=== PATIENT | male | born 1945 | race Caucasian/White ===

== ENCOUNTER 2019-08-09 06:00 | Outpatient (RCR) | payer OTHER, SELFPAY | END 2019-09-08 00:01 | LOC: SPT 06:00 | PROVIDERS: Family Provider Nurse Practitioner Family; Visit Provider Student in an Organized Health Care Education/Training Program | DX: Z47.1 Aftercare following joint replacement surgery (principal); Z96.651 Presence of right artificial knee joint; M25.561 Pain in right knee; R26.89 Other abnormalities of gait and mobility | CPT/HCPCS: 97110 ×4 ==

== ENCOUNTER 2019-09-09 06:00 | Outpatient (RCR) | payer OTHER, SELFPAY | END 2019-10-09 23:59 | disposition home or self-care (01) | LOC: SPT 06:00 | PROVIDERS: Family Provider Nurse Practitioner Family; PCP Nurse Practitioner Family; Visit Provider Student in an Organized Health Care Education/Training Program | DX: Z47.1 Aftercare following joint replacement surgery (principal); Z96.651 Presence of right artificial knee joint ==

== ENCOUNTER → 2020-10-11 14:53 | Outpatient (BNVA) | payer MEDICARE, OTHER, SELFPAY | PROVIDERS: Family Provider Nurse Practitioner Family; PCP Nurse Practitioner Family; Visit Provider Internal Medicine Pulmonary Disease | DX: R06.02 Shortness of breath (principal); J44.9 Chronic obstructive pulmonary disease, unspecified | CPT/HCPCS: 82785; 85025; 86003; 87635 ==

== ENCOUNTER → 2020-10-28 15:15 | Outpatient (BNVA) | payer MEDICARE, OTHER, SELFPAY | PROVIDERS: PCP Nurse Practitioner Family; Visit Provider Internal Medicine Pulmonary Disease | DX: Z20.822 Contact with and (suspected) exposure to COVID-19 (principal); R06.02 Shortness of breath | CPT/HCPCS: 87635 ==

== ENCOUNTER 2020-11-02 08:11 | Outpatient (CLI) | payer MEDICARE, OTHER, SELFPAY ==
--- NOTE | 2020-11-02 13:56 | PFTS_ITS ---
Date of Study:11/02/20 Date of Dictation: MECHANICS: Forced vital capacity (FVC) is mildly reduced. Forced expiratory volume in one second (FEV1) is mildly reduced. FEV1/FVC is normal. FLOW VOLUME LOOP: Mild scooping likely secondary to aging. LUNG VOLUMES: Total lung capacity (TLC) is normal. Residual volume (RV) is normal. DIFFUSING CAPACITY FOR CARBON MONOXIDE: Normal. INTERPRETATION: The prebronchodilator spirometry is consistent with minimal restriction. Lung volumes are normal. Gas exchange (DLCO) is normal. MTDD
== END 2020-11-02 08:12 | disposition home or self-care (01) ==
LOC: RT 08:12
PROVIDERS: PCP Family Medicine; Visit Provider Internal Medicine Pulmonary Disease
DX: J44.9 Chronic obstructive pulmonary disease, unspecified (principal); R06.02 Shortness of breath
CPT/HCPCS: 94010; 94618; 94726; 94729

== ENCOUNTER 2021-01-12 08:51 | Outpatient (CLI) | payer MEDICARE, OTHER, SELFPAY ==
--- NOTE | 2021-01-12 09:00 | CT_ITS ---
WS: [id number] CT CHEST CT-HIGH RESOLUTION, NONCONTRAST. HISTORY: Interstitial lung disease. Technique: High-resolution chest CT is performed in inspiration, expiration, supine and prone positio isreal. All CT scans at [facility] use at least one of these dose optimization techniques: automa shira exposure control; mA and/or kV adjustment per patient size (includes targeted exams where dose is matched to clinical indication); or iterative reconstruction. DLP: 900.64 mGycm COMPARISON: 01/05/2018 CT angiogram chest. Findings: Dual-lead LEFT subclavian pacer. Linear scarring or chronic atelectasis in the LEFT lower l kaylen field remains the same on supine and prone imaging. There is adjacent pleural thickening and teth ering. There is mild bronchiectasis in the LEFT lower lobe at the site of the scarring and chronic at electasis. There is very minimal distal airways interstitial thickening. Very minimal distal airways reticulations. There is no honeycombing identified. There are a few scattered benign granulomata. Wit h expiration there is decreased volume with increasing mosaic groundglass attenuation due to the expi ration. Mild enlargement of the heart. Prominent pericardial fat. No adenopathy. CT/CT chest wo con [id number] Impression: 1. Chronic atelectasis and/or scarring with bronchiectasis involving the super ior segment LEFT lower lobe. 2. Otherwise no bronchiectasis or pneumonia. 3. No honeycombing or evidence for IUP.
== END 2021-01-12 08:52 | disposition home or self-care (01) ==
PROVIDERS: PCP Family Medicine; Visit Provider Internal Medicine Pulmonary Disease
DX: J44.9 Chronic obstructive pulmonary disease, unspecified (principal); J98.11 Atelectasis
CPT/HCPCS: 71250

== ENCOUNTER 2021-03-10 14:57 | Emergency (ER) | payer OTHER, MEDICARE, SELFPAY ==
[2021-03-10 15:26] VITALS: BP 138/83; PULSE 72; RESP 15; TEMP 36.7; O2SAT 99; BMI 30.2
--- NOTE | 2021-03-10 16:33 | CTR_ITS ---
PROCEDURE INFORMATION: Exam: CT Lumbar Spine Without Contrast Exam date and time: 03/10/2021 4:33 PM Age: 75 years old Clinical indication: Injury or trauma; Blunt trauma (contusions or hematomas); Patient HX: Backwards fall from seated position denies loc C/O neck and bad pain; Additional info: Fall with back pain TECHNIQUE: Imaging protocol: Computed tomography images of the lumbar spine without contrast. Radiation optimization: All CT scans at this facility use at least one of these dose optimization techniques: automated exposure control; mA and/or kV adjustment per patient size (includes targeted exams where dose is matched to clinical indication); or iterative reconstruction. COMPARISON: [place] [id number] 09/25/2016 12:48 PM RADIATION DOSE METRICS: Total DLP (mGy-cm): 1538.55 FINDINGS: Vertebrae: Mild rightward lumbar curvature. The vertebral body stature is intact. The facets and posterior elements are intact. No fracture or subluxation. Degenerative endplate changes at all lumbar levels with bridging osteophytes. L1-L2: No significant disc protrusion. No severe spinal canal stenosis. No significant neural foraminal narrowing. L2-L3: Disc space narrowing with mild disc bulge. No foraminal stenosis. Mild central canal stenosis. L3-L4: Disc space narrowing with mild disc bulge. No foraminal stenosis. Mild central canal stenosis. L4-L5: Disc space narrowing with mild disc bulge. Moderate left foraminal stenosis. No central canal stenosis. L5-S1: Posterior endplate spurring with disc bulge. Severe bilateral foraminal stenosis. No foraminal stenosis. Soft tissues: Unremarkable. CT/CT lumbar spine wo con* [id number] IMPRESSION: 1. No fracture or acute finding. 2. Multilevel degenerative changes. Radiation Dose CTDIVOL = (mGy): DLP = 1538.55 (mGy-cm)
--- NOTE | 2021-03-10 16:33 | CTR_ITS ---
PROCEDURE INFORMATION: Exam: CT Thoracic Spine Without Contrast Exam date and time: 03/10/2021 4:33 PM Age: 75 years old Clinical indication: Injury or trauma; Blunt trauma (contusions or hematomas); Patient HX: Backwards fall from seated position denies loc C/O neck and bad pain; Additional info: Fall with back pain TECHNIQUE: Imaging protocol: Computed tomography images of the thoracic spine without contrast. Radiation optimization: All CT scans at this facility use at least one of these dose optimization techniques: automated exposure control; mA and/or kV adjustment per patient size (includes targeted exams where dose is matched to clinical indication); or iterative reconstruction. COMPARISON: CT chest wo con [id number] 01/12/2021 9:03 AM RADIATION DOSE METRICS: Total DLP (mGy-cm): 2038.57 FINDINGS: Vertebrae: Mild rightward thoracic curvature. The vertebral body alignment and stature is intact. 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 The facets and posterior elements are intact. T1-T2: No significant disc protrusion. No severe spinal canal stenosis. No significant neural foraminal narrowing. T2-T3: No significant disc protrusion. No severe spinal canal stenosis. No significant neural foraminal narrowing. T3-T4: No significant disc protrusion. No severe spinal canal stenosis. No significant neural foraminal narrowing. T4-T5: No significant disc protrusion. No severe spinal canal stenosis. No significant neural foraminal narrowing. T5-T6: No significant disc protrusion. No severe spinal canal stenosis. No significant neural foraminal narrowing. T6-T7: No significant disc protrusion. No severe spinal canal stenosis. No significant neural foraminal narrowing. T7-T8: No significant disc protrusion. No severe spinal canal stenosis. No significant neural foraminal narrowing. T8-T9: No significant disc protrusion. No severe spinal canal stenosis. No significant neural foraminal narrowing. T9-T10: No significant disc protrusion. No severe spinal canal stenosis. No significant neural foraminal narrowing. T10-T11: No significant disc protrusion. No severe spinal canal stenosis. No significant neural foraminal narrowing. T11-T12: Slight widening of the anterior disc space at T11-12 with a fracture through the ossified anterior longitudinal ligament. Lucency through the right and left calcified disc capsule at T11-12. T12-L1: No significant disc protrusion. No severe spinal canal stenosis. No significant neural foraminal narrowing. CT/CT thoracic spin wo con* [id number] IMPRESSION: 1. Mild widening of the anterior T11-12 disc space with fracture through the ossified anterior longitudinal ligament. This is consistent with anterior ligament disruption, likely due to a hyperextension injury. 2. No compression fracture identified. Radiation Dose CTDIVOL = (mGy): DLP = 2039.57 (mGy-cm)
--- NOTE | 2021-03-10 16:33 | CTR_ITS ---
PROCEDURE INFORMATION: Exam: CT Cervical Spine Without Contrast Exam date and time: 03/10/2021 4:33 PM Age: 75 years old Clinical indication: Injury or trauma; Blunt trauma; Patient HX: Backwards fall from seated position denies loc C/O neck and bad pain; Additional info: Fall and hit head TECHNIQUE: Imaging protocol: Computed tomography images of the cervical spine without contrast. Radiation optimization: All CT scans at this facility use at least one of these dose optimization techniques: automated exposure control; mA and/or kV adjustment per patient size (includes targeted exams where dose is matched to clinical indication); or iterative reconstruction. COMPARISON: CT chest wo con [id number] 01/12/2021 9:03 AM RADIATION DOSE METRICS: Total DLP (mGy-cm): 712.43 FINDINGS: Vertebrae: [id number] degenerative changes are present in the cervical spine. Mild canal stenosis is present at C4-C5 and C5-C6 secondary to chronic changes. No cervical spine fracture is visualized. Spinal alignment is normal. Soft tissues: Unremarkable. Lungs: Lung apices are normal. CT/CT cervical spin wo con* [id number] IMPRESSION: No cervical spine fracture. Radiation Dose CTDIVOL = (mGy): DLP = 712.43 (mGy-cm)
--- NOTE | 2021-03-10 16:33 | CTR_ITS ---
PROCEDURE INFORMATION: Exam: CT Head Without Contrast Exam date and time: 03/10/2021 4:33 PM Age: 75 years old Clinical indication: Injury or trauma; Blunt trauma (contusions or hematomas); Without loss of consciousness; Patient HX: Backwards fall from seated position denies loc C/O neck and bad pain; Additional info: Fall and hit head, on blood thinner TECHNIQUE: Imaging protocol: Computed tomography of the head without contrast. Radiation optimization: All CT scans at this facility use at least one of these dose optimization techniques: automated exposure control; mA and/or kV adjustment per patient size (includes targeted exams where dose is matched to clinical indication); or iterative reconstruction. COMPARISON: No relevant prior studies available. RADIATION DOSE METRICS: Total DLP (mGy-cm): 935.99 FINDINGS: Brain: Mild atrophy and mild white matter chronic microvascular changes are noted. No hemorrhage or evidence of acute infarction is seen. Cerebral ventricles: No ventriculomegaly. Paranasal sinuses: Visualized sinuses are unremarkable. No fluid levels. Mastoid air cells: Visualized mastoid air cells are well aerated. Bones/joints: Unremarkable. No acute fracture. Soft tissues: Unremarkable. CT/CT head wo con* [id number] IMPRESSION: No acute intracranial abnormality. Radiation Dose CTDIVOL = (mGy): DLP = 935.99 (mGy-cm)
--- NOTE | 2021-03-10 16:34 | ED_ITS ---
Documented by User: MARIA T Ochoa 03/11/21 07:12 HPI - Fall General: Chief Complaint: Fall Stated Complaint: FELL, HIT HEAD, ON BLOOD THINNERS, BACK INJURY Time Seen by Provider: 03/10/21 16:25 History of Present Illness: HPI Narrative: Patient is a 75-year-old male comes to the ED with a fall. Fall occurred just prior to arrival patient says he fell backwards into a foldable metal chair and hit his head and back. His main co mplaint is back pain. Denies any headache, loss of consciousness or any bleeding. Denies neck pain. Back pain is located in between his thoracic and lumbar spine and he rates it a 10 out of 10. Denies any cauda equina symptoms. Associated symptoms-after fall: Denies abdominal pain, chest pain, headache(s), hematuria or neck pain Review of Systems Const: Denies: fever(s), chills or fatigue Eyes: Denies: change in vision or eye discomfort ENMT: Denies: throat pain, odynophagia, nasal discharge or nasal congestion Card: Denies: chest pain, palpitations, edema, swelling of feet/ankles, dyspnea on exertion or orthopnea Resp: Denies: dyspnea, productive cough or non-productive cough GI: Denies: abdominal pain, nausea, vomiting, diarrhea, constipation or akash tochezia : Denies: flank pain, difficulty urinating, dysuria or hematuria Musc: Reports: back pain; Denies: neck pain or extremity swelling Skin/Breast: Denies: rash or new lesions Neuro: Denies: headache(s), numbness in extremities or weakness in extremities PFSH ED PFSH: Family History Father Hypertension CHF (congestive heart failure) Mother Hypertension Social History Smoking and tobacco status: former smoker Quit status (tobacco): has quit using tobacco Year quit tobacco: 1990 1- [id number] Second hand smoke exposure: Yes Smoking risk assessment/counseling performed?: Yes Alcohol intake: current Alcohol intake frequency: 0-2 Drinks per Day Lives independently: Yes Household members: spouse Housing: House Marital status: service: Yes Current occupational status: retired Pets and animals: Yes History of recent travel: No Current gender identity: Male Physical Exam Const: COMMON NORMALS: no acute distress, patient oriented x3, healthy appearing and alert GENERAL APPEARANCE: cooperative and comfortable HENMT: COMMON NORMALS: normocephalic HEAD & SCALP: normocephalic MOUTH: Normal oral and palatal mucosa present THROAT: posterior oropharynx normal and uvula midline Neck/C-Spine: COMMON NORMALS: supple GENERAL: Yes normal visual inspection Resp: COMMON NORMALS: normal respiratory effort, No retractions, No use of accessory muscles and clear to auscultation bilaterally AUSCULTATION: clear to auscultation bilaterally Cardio: COMMON NORMALS: regular rate, regular rhythm, S1 normal heart sound present, S2 normal heart sound present, No gallops present (Cardio), No clicks present (Cardio), No murmurs present (Cardio) and Peripheral pulses 2+ throughout RATE: regular rate RHYTHM: regular rhythm HEART SOUNDS: S1 normal heart sound present and S2 normal heart sound present PERIPHERAL PULSES: Peripheral pulses 2+ throughout GI: COMMON NORMALS: Normal to inspection, nondistended, normoactive bowel sounds present, Soft to palpation, non-tender and no masses PALPATION: Yes Soft to palpation : COMMON NORMALS: Yes no CVA tenderness BLADDER/KIDNEY EXAM: Yes no CVA tenderness Back/Pelvis: COMMON NORMALS: no CVA tenderness THORACIC SPINE/UPPER BACK: Yes pain with ROM, Yes thoracic spinal tenderness and Yes paraspinal muscle tenderness LUMBAR SPINE/LOWER BACK: Yes pain with ROM, Yes lumbar spinal tenderness and Yes paraspinal muscle tenderness Extremity: COMMON NORMALS: normal to inspection and no pedal edema Neuro: COMMON NORMALS: patient oriented x3, CN's II-XII intact bilaterally, moves all extremities, no focal motor deficits and no sensory deficits noted SENSORIUM/ORIENTATION: Yes alert SENSORY EXAM: Yes extremities (intact) MOTOR EXAM: 5/5 motor strength present throughout Skin: GENERAL SKIN EXAM: dry skin Course Vital Signs: Vital signs: Vital Signs Temperature 98.1 F 03/10/21 19:21 Pulse Rate 73 03/10/21 19:21 Respiratory Rate 17 03/10/21 19:21 Blood Pressure 134/83 03/10/21 19:21 Pulse Oximetry 96 03/10/21 19:21 Discharge Plan Discharge Patient Disposition: Home Clinical Impression: Other fracture of t11-T12 vertebra, initial encounter for closed fracture Condition: Stable Prescriptions: No Action amiodarone 200 mg tablet 200 mg PO DAILY RF: 0 Eliquis 5 mg tablet 5 mg PO BID RF: 0 allopurinol 100 mg tablet 100 mg PO TID RF: 0 carvedilol 25 mg tablet 25 mg PO BID RF: 0 furosemide 40 mg tablet 40 mg PO QAM RF: 0 simvastatin 40 mg tablet 40 mg PO .HS RF: 0 albuterol sulfate 90 mcg/actuation aero powdr breath act w/sensor 90 mcg INHALATION Q6H PRNRF: 0 methocarbamol 750 mg tablet 750 mg PO TID PRNRF: 0 nortriptyline 25 mg capsule 25 mg PO .HS RF: 0 omeprazole 20 mg capsule,delayed release(DR/EC) 20 mg PO BID Qty: 60 RF: 3 azelastine-fluticasone [Dymista] 137-50 mcg/spray spray,non-aerosol 1 spray intranasal BID Qty: 23 RF: 3 potassium chloride 20 mEq tablet extended release 20 meq PO DAILY RF: 0 Entresto 24-26 mg tablet 1 tab PO BID RF: 0 fluticasone propionate [Allergy Relief (fluticasone)] 50 mcg/actuation spray,suspension 2 spray intranasal DAILY RF: 0 cetirizine [Zyrtec] 10 mg tablet 10 mg PO DAILY Qty: 30 RF: 3 Spiriva Respimat 2.5 mcg/actuation mist 2 puff inhalation DAILY Qty: 4 RF: 3 budesonide-formoterol [Symbicort] 160-4.5 mcg/actuation HFA aerosol inhaler 2 puff inhalation BID Qty: 10.2 RF: 3 pregabalin [Lyrica] 75 mg capsule 75 mg PO DAILY RF: 0 Discharge Orders: Discharge ED (Routine); Ordered 03/10/21 Ordered By: Natalie Hatch Referrals: Dayton Newman DO [Physician] - 4-7 days Katina Damon MD [Primary Care Provider] - Discharge Diet: Usual diet Discharge Activity: Limit activity as instructed Patient Instructions: Opioid Safety Activity Restrictions/Additional Instructions: Percocet for pain control, limit activity until cleared by . Sign Out Sign Out Data: Patient Sign Out occurred on 03/10/21 at 17:40. Patient's care was discussed, and care was transferred from to Natalie Hatch APRN. Coding Level of Care Code ED Forestry Worker for Chg Fwd Exam Comprehensive Documented by User: Natalie Hatch APRN 03/10/21 18:38 HPI - Fall General: Chief Complaint: Fall Stated Complaint: FELL, HIT HEAD, ON BLOOD THINNERS, BACK INJURY Time Seen by Provider: 03/10/21 16:25 PFSH ED PFSH: Family History Father Hypertension CHF (congestive heart failure) Mother Hypertension Social History Smoking and tobacco status: former smoker Quit status (tobacco): has quit using tobacco Year quit tobacco: 1990 1- [id number] Second hand smoke exposure: Yes Smoking risk assessment/counseling performed?: Yes Alcohol intake: current Alcohol intake frequency: 0-2 Drinks per Day Lives independently: Yes Household members: spouse Housing: House Marital status: service: Yes Current occupational status: retired Pets and animals: Yes History of recent travel: No Current gender identity: Male Course Reevaluation(s): Reevaluation #1: CT of C spine, and Head unremarkable.Discussed CT of T spine with . Will discharge on Percocet, and follow closely with . Limit strenuious activities. Discussed with patient. Vital Signs: Vital signs: Vital Signs Temperature 98.1 F 03/10/21 19:21 Pulse Rate 73 03/10/21 19:21 Respiratory Rate 17 03/10/21 19:21 Blood Pressure 134/83 03/10/21 19:21 Pulse Oximetry 96 03/10/21 19:21 MDM - Fall Imaging Data^: Other CT: Attestation: I personally reviewed and interpreted this imaging study as follows: Radiologist's impression: 1. Mild widening of the anterior T11-12 disc space with fracture through the ossified anterior longitudinal ligament. This is consistent with anterior ligament disruption, likely due to a hyperextension injury. 2. No compression fracture identified. Discharge Plan Discharge Patient Disposition: Home Clinical Impression: Other fracture of t11-T12 vertebra, initial encounter for closed fracture Condition: Stable Prescriptions: No Action amiodarone 200 mg tablet 200 mg PO DAILY RF: 0 Eliquis 5 mg tablet 5 mg PO BID RF: 0 allopurinol 100 mg tablet 100 mg PO TID RF: 0 carvedilol 25 mg tablet 25 mg PO BID RF: 0 furosemide 40 mg tablet 40 mg PO QAM RF: 0 simvastatin 40 mg tablet 40 mg PO .HS RF: 0 albuterol sulfate 90 mcg/actuation aero powdr breath act w/sensor 90 mcg INHALATION Q6H PRNRF: 0 methocarbamol 750 mg tablet 750 mg PO TID PRNRF: 0 nortriptyline 25 mg capsule 25 mg PO .HS RF: 0 omeprazole 20 mg capsule,delayed release(DR/EC) 20 mg PO BID Qty: 60 RF: 3 azelastine-fluticasone [Dymista] 137-50 mcg/spray spray,non-aerosol 1 spray intranasal BID Qty: 23 RF: 3 potassium chloride 20 mEq tablet extended release 20 meq PO DAILY RF: 0 Entresto 24-26 mg tablet 1 tab PO BID RF: 0 fluticasone propionate [Allergy Relief (fluticasone)] 50 mcg/actuation spray,suspension 2 spray intranasal DAILY RF: 0 cetirizine [Zyrtec] 10 mg tablet 10 mg PO DAILY Qty: 30 RF: 3 Spiriva Respimat 2.5 mcg/actuation mist 2 puff inhalation DAILY Qty: 4 RF: 3 budesonide-formoterol [Symbicort] 160-4.5 mcg/actuation HFA aerosol inhaler 2 puff inhalation BID Qty: 10.2 RF: 3 pregabalin [Lyrica] 75 mg capsule 75 mg PO DAILY RF: 0 Discharge Orders: Discharge ED (Routine); Ordered 03/10/21 Ordered By: Natalie Hatch Referrals: Dayton Newman DO [Physician] - 4-7 days Katina Damon MD [Primary Care Provider] - Discharge Diet: Usual diet Discharge Activity: Limit activity as instructed Patient Instructions: Opioid Safety Activity Restrictions/Additional Instructions: Percocet for pain control, limit activity until cleared by . Sign Out Sign Out Data: Patient Sign Out occurred on 03/10/21 at 17:40. Patient's care was discussed, and care was transferred from to Natalie Hatch APRN. Coding Level of Care Code ED Forestry Worker for Chg Fwd Exam Comprehensive
[2021-03-10 16:42] VITALS: RESP 16; O2SAT 98
[2021-03-10] MEDS: morphine 4 mg/mL SDV 1 mL IM ×2 (16:42→17:56)
[2021-03-10 17:56] VITALS: RESP 16; O2SAT 96
--- NOTE | 2021-03-10 19:20 | PC.NURSE ---
Patient dispensed 4 tablets oxycodone 5 mg/acetaminophen 325 mg for patient to take at home per provider order.
[2021-03-10 19:21] VITALS: BP 134/83; PULSE 73; RESP 17; TEMP 36.7; O2SAT 96
--- NOTE | 2021-03-14 09:51 | DCPLANNER ---
manager of it had message to schedule a follow up appointment for patient at ortho, with Dr. Newman. manager of it called the ortho clinic, spoke with Katina, gave clinic patients information. manager of it was told that patients information would be printed and reviewed. Clinic will call patient with appointment information.
--- NOTE | 2021-03-15 15:49 | DCPLANNER ---
Patient has a follow up appointment scheduled for Sunday, March 21, 2021 at 10:[address] Newman at [facility]. Clinic will call patient with appointment information.
--- NOTE | 2021-04-06 08:51 | DCPLANNER ---
Patient did attend follow up appointment with ortho.
== END 2021-03-10 19:23 | disposition home or self-care (01) ==
PROVIDERS: Emergency Provider Nurse Practitioner Family; PCP Family Medicine
DX: S22.088A Other fracture of T11-T12 vertebra, initial encounter for closed fracture (principal); Z79.01 Long term (current) use of anticoagulants; Z87.891 Personal history of nicotine dependence; W19.XXXA Unspecified fall, initial encounter
CPT/HCPCS: 70450; 72125; 72128; 72131; 96372; 99283; J2270

== ENCOUNTER → 2021-03-21 10:18 | Outpatient (BNVA) | payer OTHER, SELFPAY | PROVIDERS: PCP Family Medicine; Visit Provider Orthopaedic Surgery | DX: S22.000A Wedge compression fracture of unspecified thoracic vertebra, initial encounter for closed fracture (principal); X58.XXXA Exposure to other specified factors, initial encounter | CPT/HCPCS: 72070; 72100 ==

== ENCOUNTER → 2021-04-04 14:36 | Outpatient (BNVA) | payer OTHER, SELFPAY | PROVIDERS: PCP Family Medicine; Visit Provider Orthopaedic Surgery | DX: M46.94 Unspecified inflammatory spondylopathy, thoracic region (principal) | CPT/HCPCS: 72070 ==

== ENCOUNTER → 2021-05-04 13:52 | Outpatient (BNVA) | payer OTHER, MEDICARE, SELFPAY | PROVIDERS: PCP Family Medicine; Visit Provider Orthopaedic Surgery | DX: S22.000A Wedge compression fracture of unspecified thoracic vertebra, initial encounter for closed fracture (principal); M54.6 Pain in thoracic spine; X58.XXXA Exposure to other specified factors, initial encounter | CPT/HCPCS: 72080 ==

== ENCOUNTER → 2021-06-13 13:44 | Outpatient (BNVA) | payer OTHER, MEDICARE, SELFPAY | PROVIDERS: PCP Family Medicine; Visit Provider Orthopaedic Surgery | DX: M54.6 Pain in thoracic spine (principal); M46.84 Other specified inflammatory spondylopathies, thoracic region | CPT/HCPCS: 72070 ==

== ENCOUNTER → 2021-10-03 15:39 | Outpatient (BNVA) | payer OTHER, MEDICARE, SELFPAY | PROVIDERS: PCP Family Medicine; Visit Provider Nurse Practitioner Family | DX: Z20.822 Contact with and (suspected) exposure to COVID-19 (principal); Z11.52 Encounter for screening for COVID-19 | CPT/HCPCS: 87635 ==

== ENCOUNTER → 2022-02-01 17:03 | Outpatient (BNVA) | payer MEDICARE, OTHER, SELFPAY | PROVIDERS: PCP Family Medicine; Visit Provider Nurse Practitioner Family | DX: J44.9 Chronic obstructive pulmonary disease, unspecified (principal); I50.9 Heart failure, unspecified; K21.9 Gastro-esophageal reflux disease without esophagitis; J40 Bronchitis, not specified as acute or chronic; R05.3 Chronic cough; I48.91 Unspecified atrial fibrillation; I10 Essential (primary) hypertension; J30.2 Other seasonal allergic rhinitis | CPT/HCPCS: 80053 ==

== ENCOUNTER → 2022-10-26 09:27 | Outpatient (BNVA) | payer MEDICARE, OTHER, SELFPAY | PROVIDERS: PCP Family Medicine; Visit Provider Internal Medicine Cardiovascular Disease | DX: I48.11 Longstanding persistent atrial fibrillation (principal); Z79.01 Long term (current) use of anticoagulants; I11.0 Hypertensive heart disease with heart failure; I50.42 Chronic combined systolic (congestive) and diastolic (congestive) heart failure; K21.9 Gastro-esophageal reflux disease without esophagitis; G47.33 Obstructive sleep apnea (adult) (pediatric); Z95.0 Presence of cardiac pacemaker; Z87.891 Personal history of nicotine dependence | CPT/HCPCS: 93005; 99204; Q3014 ==

== ENCOUNTER → 2023-02-08 08:13 | Outpatient (BNVA) | payer MEDICARE, OTHER, SELFPAY | PROVIDERS: PCP Family Medicine; Visit Provider Nurse Practitioner Family | DX: I48.11 Longstanding persistent atrial fibrillation (principal); Z95.0 Presence of cardiac pacemaker; I11.0 Hypertensive heart disease with heart failure; I50.42 Chronic combined systolic (congestive) and diastolic (congestive) heart failure; Z87.891 Personal history of nicotine dependence; Z79.01 Long term (current) use of anticoagulants | CPT/HCPCS: 99214 ==

== ENCOUNTER → 2023-02-22 09:44 | Outpatient (BNVA) | payer MEDICARE, OTHER, SELFPAY | PROVIDERS: PCP Family Medicine; Visit Provider Nurse Practitioner Family | DX: I11.0 Hypertensive heart disease with heart failure (principal); I50.42 Chronic combined systolic (congestive) and diastolic (congestive) heart failure; I48.11 Longstanding persistent atrial fibrillation; Z87.891 Personal history of nicotine dependence; Z95.0 Presence of cardiac pacemaker; Z79.01 Long term (current) use of anticoagulants | CPT/HCPCS: 99214 ==

== ENCOUNTER 2023-02-26 12:35 | Outpatient (CLI) | payer MEDICARE, OTHER, SELFPAY ==
--- NOTE | 2023-02-26 12:45 | USCV_ITS ---
Kale Harden Age: 77 Gender: M : 1945 Exam Date: 02/26/2023 13:32 Ordering Phys: Fe Hankins Technologist: Exam Location: [facility] [place] Indication: a fib BP: 125 / 70 HR: 61 Rhythm: Sinus Technical Quality: Adequate MEASUREMENTS (Male / Female) Normal Values 2D ECHO LV Diastolic Diameter PLAX 3.6 cm 4.2 - 5.9 / 3.9 - 5.3 cm LV Systolic Diameter PLAX 3.1 cm IVS Diastolic Thickness 1.2 cm 0.6 - 1.0 / 0.6 - 0.9 cm IVS Systolic Thickness 1.6 cm LVPW Diastolic Thickness 1.2 cm 0.6 - 1.0 / 0.6 - 0.9 cm LVPW Systolic Thickness 1.7 cm LVOT Diameter 2.0 cm LV Ejection Fraction 2D Teich 20.6 % LV Ejection Fraction MOD 2C 66.6 % LV Ejection Fraction 2C AL 66.1 % LA Diameter 4.8 cm M-MODE Aortic Annulus Diameter 4.0 cm LA Ao Ratio MM 1.2 MV E Point Septal Separation 1.1 cm DOPPLER AV Peak Velocity 103.0 cm/s LVOT Peak Velocity 72.0 cm/s AV Area Cont Eq vti 2.5 cm squared AV Area Cont Eq pk 2.2 cm squared MV Area PHT 5.0 cm squared Mitral E to A Ratio 1.8 MV E' Velocity 37.0 cm/s Mitral E to MV E' Ratio 10.1 Mitral E to LV E' Lateral Ratio 8.1 Mitral E to LV E' Septal Ratio 13.6 TR Peak Velocity 272.7 cm/s TR Peak Gradient 29.7 mmHg TV Peak E Velocity 72.0 cm/s Right Atrial Pressure 3.0 mmHg Pulmonary Artery Systolic Pressu 32.7 mmHg RV Acceleration Time 0.1 s FINDINGS Left Ventricle Left ventricle is normal in size. LV systolic function is grossly normal. Regional wall motion abnormalities cannot accurately be assessed because of poor ultrasonic windows. Right Ventricle Normal in size and function Right Atrium Normal in size Left Atrium Normal in size Mitral Valve Grossly normal. Trace mitral regurgitation. Aortic Valve Grossly normal. No significant stenosis or regurgitation. Tricuspid Valve Mild tricuspid regurgitation. RVSP is 35 to 40 mmHg. This is consistent with mild pulmonary hypertension. Pulmonic Valve Not well-visualized Pericardium Normal Aorta Normal in size IVC Appears to be normal CONCLUSIONS Technically limited quality echocardiogram because of poor ultrasonic windows. Grossly LV systolic function is normal. Accurate assessment of regional wall motion abnormalities is not possible because of limited visualization. Trace mitral regurgitation Mild tricuspid regurgitation Mild pulmonary hypertension Compared to prior echocardiogram from 2018, no significant changes are seen. Jack Levy MD (Electronically Signed) Final Date: 02 March 2023 17:18 S
== END 2023-02-26 12:36 | disposition home or self-care (01) ==
LOC: RAD 12:37
PROVIDERS: PCP Family Medicine; Visit Provider Nurse Practitioner Family
DX: I50.9 Heart failure, unspecified (principal); I48.91 Unspecified atrial fibrillation; I07.1 Rheumatic tricuspid insufficiency; I27.20 Pulmonary hypertension, unspecified
CPT/HCPCS: 93306; 99214

== ENCOUNTER → 2023-03-15 09:30 | Outpatient (BNVA) | payer MEDICARE, OTHER, SELFPAY | PROVIDERS: PCP Family Medicine; Visit Provider Nurse Practitioner Family | DX: I11.0 Hypertensive heart disease with heart failure (principal); I50.42 Chronic combined systolic (congestive) and diastolic (congestive) heart failure; Z87.891 Personal history of nicotine dependence; Z95.0 Presence of cardiac pacemaker | CPT/HCPCS: 99213 ==

== ENCOUNTER 2023-05-27 11:35 | Emergency (ER) | payer OTHER, SELFPAY ==
--- NOTE | 2023-05-27 11:38 | US_ITS ---
WS: [id number] TESTICULAR ULTRASOUND HISTORY: pain COMPARISON: None available. TECHNIQUE: Real-time and color Doppler imaging or utilized to perform a testicular ultrasound. Right testicle: 3.8 cm x 2.1 cm x 1.5 cm. Normal sized testicle. There is increased echogenicity throughout the testicle. Normal color Doppler is present throughout. Systolic and diastolic velocities are both present. No significant hydrocele. Right epididymis: Mildly heterogeneous epididymis. No increased vascularity. Left testicle: 2.9 cm x 1.6 cm x 2.0 cm. Mildly heterogeneous testicle. Irregular shaped low echogenicity nodules in the LEFT testicle. Within the inferior LEFT testes. Increased Doppler throughout the testicle. Small significant hydrocele. Left epididymis: Marked increased vascularity throughout an abnormal epididymis. The epididymis is en larged and edematous. Mild LEFT scrotal wall thickening. IMPRESSION: 1. Advanced LEFT epididymo-orchitis. 2. Areas of decreased echogenicity within the LEFT testicle. These are nonvascular. Recommend follow- up ultrasound of the testes after treatment to ensure the these resolve and/or do not increase in siz e. These may be areas of ischemia. Mass is not completely excluded but thought less likely. 3. Mild LEFT scrotal wall thickening.
[2023-05-27 11:41] VITALS: BP 144/80; PULSE 74; RESP 17; TEMP 36.6; O2SAT 97; BMI 31.6
--- NOTE | 2023-05-27 12:29 | W.ED.MALEGU ---
HPI - Male Genitourinary General: Chief complaint: Urogenital-Male Stated complaint: testicular pain Time Seen by Provider: 05/27/23 11:45 Source: patient Mode of arrival: ambulatory Limitations: no limitations History of Present Illness: 77-year-old male states has been having left testicle pain over the last 2 days. States that testicle been swollen as well as pain sharp in nature rates an 8 out of 10 worse with palpation. He states he just recently got over a urinary tract infection. He denies any more dysuria denies any penile discharge. Associated symptoms: Deny dysuria, nausea or vomiting Review of Systems Const: Denies: fever(s), chills, body aches or change in appetite ENMT: Denies: throat pain or dental pain Card: Denies: chest pain Resp: Denies: dyspnea GI: Denies: abdominal pain, nausea, vomiting or diarrhea : Reports: testicular pain; Denies: dysuria Musc: Denies: neck pain or back pain Skin/Breast: Denies: rash Neuro: Denies: headache(s) PFSH ED PFSH: Medical History Asthma Atrial fibrillation CHF (congestive heart failure) Essential hypertension Gout Hx pulmonary embolism Hyperlipidemia Nonischemic cardiomyopathy ANJELICA (obstructive sleep apnea) Pacemaker PTSD (post-traumatic stress disorder) Surgical History History of cardiac radiofrequency ablation S/P cholecystectomy S/P knee replacement Status cardiac pacemaker Family History Father Hypertension CHF (congestive heart failure) Stroke Mother Hypertension Stroke Social History Smoking and tobacco status: former smoker Quit status (tobacco): has quit using tobacco Year quit tobacco: 1990 [id number] Second hand smoke exposure: Yes Smoking risk assessment/counseling performed?: Yes Alcohol intake: current Alcohol intake frequency: 0-2 Drinks per Day Substance/Drug Use: never Lives independently: Yes Household members: spouse Housing: House Marital status: service: Yes Current occupational status: retired Pets and animals: Yes Do you think of yourself as: Straight/Heterosexual Current gender identity: Male Physical Exam Const: COMMON NORMALS: no acute distress and patient oriented x3 HENMT: COMMON NORMALS: normocephalic and atraumatic HEAD & SCALP: normocephalic and atraumatic Eye: COMMON NORMALS: conjunctivae normal CONJUNCTIVA: Yes conjunctivae normal Chest: COMMONS NORMALS: normal inspection of the chest Resp: COMMON NORMALS: normal respiratory effort : OTHER: Tenderness swelling to left testicle Neuro: COMMON NORMALS: patient oriented x3 Psych: COMMON NORMALS: mental status grossly normal Skin: COMMON NORMALS: no rashes or lesions noted GENERAL SKIN EXAM: no rashes or lesions noted Course Vital Signs: Vital signs: Vital Signs Temperature 98 F 05/27/23 11:41 Pulse Rate 74 05/27/23 11:41 Respiratory Rate 17 05/27/23 11:41 Blood Pressure 144/80 05/27/23 11:41 Pulse Oximetry 97 05/27/23 11:41 Oxygen Delivery Me thod Room Air 05/27/23 11:41 MDM - Male Medical Decision Making Patient presents here with left testicle pain ultrasound shows an epididymitis and orchitis with hydrocele he is to follow-up with his PCP along with a urologist we will place him on Levaquin for 10 days along with pain medication he is return if worsening Medical Records I reviewed the patient's medical records. XR interpretation done by ED provider, pending radiology final review Discharge Plan Discharge Patient Disposition: Home Clinical Impression: Epididymitis, Hydrocele, left Condition: Stable Prescriptions: New levofloxacin 500 mg tablet 500 mg PO DAILY 10 Days Qty: 10 0RF tramadol 50 mg tablet 50 mg PO Q8H PRN (Reason: pain) Qty: 20 0RF No Action Eliquis 5 mg tablet 5 mg PO BID furosemide 40 mg tablet 40 mg PO QAM simvastatin 40 mg tablet 40 mg PO .HS methocarbamol 750 mg tablet 750 mg PO TID PRN nortriptyline 25 mg capsule 25 mg PO .HS allopurinol 100 mg tablet 100 mg PO DAILY fluticasone propionate [Allergy Relief (fluticasone)] 50 mcg/actuation spray,suspension 2 spray intranasal DAILY Rx Instructions: administer into each nostril pregabalin [Lyrica] 75 mg capsule 75 mg PO DAILY albuterol sulfate [ProAir HFA] 90 mcg/actuation HFA aerosol inhaler 2 puff inhalation QID PRN (Reason: shortness of breath or wheezing) Qty: 8.5 11RF azelastine-fluticasone [Dymista] 137-50 mcg/spray spray,non-aerosol 1 spray intranasal BID Qty: 23 3RF Rx Instructions: administer into each nostril omega-3 fatty acids 1,000 mg capsule 1,000 mg PO DAILY zinc gluconate 50 mg tablet 50 mg PO DAILY magnesium oxide 250 mg magnesium tablet 250 mg PO DAILY calcium citrate 200 mg (950 mg) tablet 200 mg PO DAILY potassium gluconate 600 mg (99 mg) tablet 600 mg PO DAILY metoprolol succinate 100 mg tablet extended release 24 hr 100 mg PO DAILY Qty: 90 3RF niacin 500 mg tablet 500 mg PO DAILY Entresto 49-51 mg tablet 1 tab PO BID levocetirizine [Xyzal] 5 mg tablet 5 mg PO DAILY 90 Days Qty: 90 0RF cefdinir 300 mg capsule 300 mg PO BID Qty: 20 0RF Discharge Orders: Discharge ED (Routine); Ordered 05/27/23 Ordered By: Eleanor Alicea Referrals: Shashank Almazan DO [Primary Care Provider] - 1-3 days Discharge Diet: Advance as tolerated Discharge Activity: Resume usual activity Patient Instructions: Epididymitis (ED), Hydrocele (ED) Coding Level of Care Code ED Composition Stone Applicator for Carol Patel
[2023-05-27] MEDS: TRAMadol 50 mg Tablet PO (12:38)
[2023-05-27 12:46] VITALS: RESP 17
== END 2023-05-27 12:48 | disposition home or self-care (01) ==
PROVIDERS: Emergency Provider Emergency Medicine; PCP Family Medicine
DX: N45.1 Epididymitis (principal); N43.3 Hydrocele, unspecified; Z79.01 Long term (current) use of anticoagulants; Z87.891 Personal history of nicotine dependence; I11.0 Hypertensive heart disease with heart failure; I50.9 Heart failure, unspecified; E78.5 Hyperlipidemia, unspecified; Z95.0 Presence of cardiac pacemaker
CPT/HCPCS: 76870; 99284

== ENCOUNTER → 2023-06-05 13:51 | Outpatient (BNVA) | payer MEDICARE, OTHER, SELFPAY | PROVIDERS: PCP Family Medicine; Visit Provider Family Medicine | DX: N39.0 Urinary tract infection, site not specified (principal); N45.1 Epididymitis; N43.3 Hydrocele, unspecified | CPT/HCPCS: 81003; 87086 ==

== ENCOUNTER 2023-07-18 12:18 | Outpatient (CLI) | payer OTHER, SELFPAY ==
--- NOTE | 2023-07-18 12:41 | US_ITS ---
WS: [id number] TESTICULAR ULTRASOUND HISTORY: FOLLOW UP STUDY-ATTN:LEFT TESTICLE COMPARISON: 05/27/2023 TECHNIQUE: Real-time and color Doppler imaging or utilized to perform a testicular ultrasound. Right testicle: 2.9 cm x 2.2 cm x 1.6 cm. Small testicle with normal echogenicity. Normal color Doppler is present throughout. Systolic and diastolic velocities are both present. No significant hydrocele. Right epididymis: RIGHT epididymal cyst measuring 8 x 7 x 9 mm. Left testicle: 3.0 cm x 2.2 cm x 1.6 cm. Heterogeneous testicle but improved since the prior study. The testicle is small. The areas of variab le echogenicity within the testicle have improved. Normal color Doppler is present throughout. Systolic and diastolic velocities are both present. Small hydrocele. Left epididymis: Enlarged heterogeneous epididymis with less increased vascularity as on the prior st udy. Significant improvement in the LEFT epididymitis. There is a small varicocele. IMPRESSION: 1. Significant improvement in the appearance of the LEFT testicle and the acute LEFT epididymitis. De spect these changes described on 05/27/2023 were all related to epididymal orchitis which has resolved or nearly completely resolved. 2. Small atrophic testicles. 3. Small LEFT hydrocele and varicocele.
== END 2023-07-18 12:19 | disposition home or self-care (01) ==
PROVIDERS: PCP Family Medicine; Visit Provider Family Medicine
DX: N45.1 Epididymitis (principal); N50.0 Atrophy of testis; N43.2 Other hydrocele; I86.1 Scrotal varices
CPT/HCPCS: 76870

== ENCOUNTER 2023-09-06 14:14 | Outpatient (CLI) | payer OTHER, SELFPAY ==
--- NOTE | 2023-09-06 14:19 | USR_ITS ---
PROCEDURE INFORMATION: Exam: US Scrotum Exam date and time: 09/06/2023 2:35 PM Age: 77 years old Clinical indication: Condition or disease; Hydrocele and orchitis; Other: Not specified; Additional info: Orchitis epidioymis/l hydrocele TECHNIQUE: Imaging protocol: Real-time ultrasound of the scrotum and contents with color Doppler and image documentation. COMPARISON: US scrotum [id number] 07/18/2023 1:03 PM FINDINGS: Right testicle: The right testicle measures 2.7 x 1.9 x 1.4 cm demonstrates arterial inflow and venous outflow with color and spectral Doppler. The right testicle appears homogeneous. Left testicle: The left testicle measures 3.5 x 2.0 x 1.4 cm. the left testicle is homogeneous. It does demonstrate arterial inflow with color and spectral Doppler although venous outflow was not demonstrated . Epididymides: Right epididymis appears unremarkable. The left epididymis appears unremarkable. Scrotum/soft tissues: Small left-sided hydrocele. Varicoceles, greater on the left... No scrotal wall thickening identified. US/US scrotum [id number] IMPRESSION: 1. Unremarkable grayscale sonographic appearance of the testicles. Blood flow is identified in both testicles by Doppler. Venous outflow is not demonstrated by spectral Doppler for the left testicle. Based on the music therapy teacher's preliminary note, this is thought to be technical. I have attempted to contact them to further discuss without success. If there is strong clinical concern for torsion, then repeat assessment to confirm left testicular venous outflow would be recommended. 2. No evidence of orchitis or epididymitis.
== END 2023-09-06 14:15 | disposition home or self-care (01) ==
LOC: RAD 14:14
PROVIDERS: PCP Family Medicine; Visit Provider Nurse Practitioner Family
DX: N45.3 Epididymo-orchitis (principal); N43.3 Hydrocele, unspecified
CPT/HCPCS: 76870

== ENCOUNTER → 2023-09-26 09:34 | Outpatient (BNVA) | payer MEDICARE, OTHER, SELFPAY | PROVIDERS: PCP Family Medicine; Visit Provider Internal Medicine Cardiovascular Disease | DX: I11.0 Hypertensive heart disease with heart failure (principal); I50.42 Chronic combined systolic (congestive) and diastolic (congestive) heart failure; I48.11 Longstanding persistent atrial fibrillation; Z95.0 Presence of cardiac pacemaker; I42.8 Other cardiomyopathies; Z87.891 Personal history of nicotine dependence | CPT/HCPCS: 99214 ==

== ENCOUNTER → 2024-03-26 11:33 | Outpatient (BNVA) | payer MEDICARE, OTHER, SELFPAY | PROVIDERS: PCP Family Medicine; Visit Provider Internal Medicine Cardiovascular Disease | DX: R06.02 Shortness of breath (principal); I48.11 Longstanding persistent atrial fibrillation; I11.0 Hypertensive heart disease with heart failure; I50.42 Chronic combined systolic (congestive) and diastolic (congestive) heart failure; Z87.891 Personal history of nicotine dependence; Z95.0 Presence of cardiac pacemaker | CPT/HCPCS: 36415; 80048; 83880; 99214 ==

== ENCOUNTER 2024-04-16 08:45 | Outpatient (CLI) | payer OTHER, SELFPAY ==
--- NOTE | 2024-04-16 12:49 | USCV_ITS ---
Kale Harden Age: 78 Gender: M : 1945 Exam Date: 04/16/2024 09:07 Ordering Phys: Kaylyn Velasquez MD Technologist: DELIA Exam Location: [facility] [place] Indication: CHRONIC HEART FAILURE/A FIB BP: 154 / 81 HR: 68 Rhythm: Atrial fibrillation Technical Quality: Adequate MEASUREMENTS (Male / Female) Normal Values 2D ECHO LV Diastolic Diameter PLAX 5.0 cm 4.2 - 5.9 / 3.9 - 5.3 cm IVS Diastolic Thickness 1.1 cm 0.6 - 1.0 / 0.6 - 0.9 cm IVS Systolic Thickness 2.2 cm LVPW Diastolic Thickness 1.7 cm 0.6 - 1.0 / 0.6 - 0.9 cm LVPW Systolic Thickness 2.3 cm LVOT Diameter 2.0 cm LV Ejection Fraction 2D Teich 61.4 % LV Ejection Fraction MOD 4C 54.4 % LV Ejection Fraction MOD 2C 61.5 % LV Ejection Fraction 2C AL 60.0 % LA Diameter 3.8 cm RA Systolic Volume 4C AL 63.6 ml RA Systolic Volume 4C MOD 61.8 ml LA Sys Volume AL 87.4 cm cubed LA Sys Volume Index AL 37.9 cm cubed/m squared Aorta at Sinotubular Diameter 2.8 cm M-MODE LA Ao Ratio MM 1.4 AV Cusp Separation MM 2.0 cm DOPPLER AV Peak Velocity 135.0 cm/s LVOT Peak Velocity 89.0 cm/s AV Area Cont Eq vti 2.1 cm squared AV Area Cont Eq pk 2.0 cm squared MV Peak Velocity 96.0 cm/s MV Area PHT 3.7 cm squared Mitral E to A Ratio 45.2 TR Peak Velocity 249.0 cm/s TR Peak Gradient 24.8 mmHg TR Mean Velocity 208.0 cm/s TR Mean Gradient 18.5 mmHg TR Velocity Time Integral 87.3 cm TV Peak E Velocity 55.0 cm/s Right Atrial Pressure 3.0 mmHg Pulmonary Artery Systolic Pressu 27.8 mmHg PV Peak Velocity 84.0 cm/s RV Ejection Time 0.3 s FINDINGS Left Ventricle Left ventricle is normal in size. LV systolic function is normal with EF of 50-55%. No regional wall motion abnormalities are seen. Right Ventricle Normal in size and function. Right Atrium Normal size Left Atrium Normal in size. Mitral Valve Structurally normal mitral valve. Mild mitral regurgitation. Aortic Valve Structurally normal aortic valve. No significant stenosis or regurgitation. Tricuspid Valve Mild tricuspid regurgitation. Pulmonary artery systolic pressure is normal. Pulmonic Valve Not well visualized Pericardium Normal Aorta Normal in size IVC Not well visualized CONCLUSIONS LV systolic function is normal with EF of 50 to 55%. Mild mitral regurgitation Mild tricuspid regurgitation Compared to prior echo from 2022, no significant changes are seen Jack Levy MD (Electronically Signed) Final Date: 01 May 2024 21:00 S
== END 2024-04-16 08:58 | disposition home or self-care (01) ==
PROVIDERS: PCP Family Medicine; Visit Provider Internal Medicine Cardiovascular Disease
DX: R06.09 Other forms of dyspnea (principal)
CPT/HCPCS: 93306

== ENCOUNTER → 2024-06-29 13:58 | Outpatient (BNVA) | payer OTHER, SELFPAY | PROVIDERS: PCP Family Medicine; Visit Provider Internal Medicine Cardiovascular Disease | DX: R07.89 Other chest pain (principal); I11.0 Hypertensive heart disease with heart failure; I50.42 Chronic combined systolic (congestive) and diastolic (congestive) heart failure; I48.11 Longstanding persistent atrial fibrillation; I42.8 Other cardiomyopathies; Z95.0 Presence of cardiac pacemaker; Z87.891 Personal history of nicotine dependence | CPT/HCPCS: 99214 ==

== ENCOUNTER 2024-07-14 08:02 | Outpatient (CLI) | payer OTHER, SELFPAY ==
--- NOTE | 2024-07-14 | ECG_ITS ---
Short Fuze Test Date: 2024-07-14 Pat Name: Kale Harden Department: Room: Gender: Male Recycling Manager: : 1945 Requested By: Kaylyn Velasquez Order Number: [id number] Calvin MD: Kaylyn Velasquez M.D. Interpretive Statements Lung unchanged pre/post procedure; Intraprocedure shortess of breath; Symptoms resoled by discharge PROCEDURE: At the baseline, the EKG revealed atrial fibrillation with demand V paced rhythm.. The baseline heart was 87 bpm with a blood pressue of 120/76 mm of Hg Lexiscan was infused over a period of 20 seconds. A total of 0.4 milligrams of Lexiscan was infused. The stress phase was continued for a total of 5 minutes. Heart rate at the end of the stress phase was 83 bpm with a blood pressure 129/67 mm of Hg. the EKG changes of the Lexiscan infusion is uninterpretable due to the baseline changes. Sestamibi was injected 20 seconds after the Lexiscan infusion. Heart rate at the end of the recovery phase was 83 bpm with a blood pressure of 129/67 mm of Hg. CONCLUSION: 1. The EKG response to Lexiscan infusion is uninterpretable due to the baseline changes 2. No LexiScan induced chest pain or cardiac arrhythmia 3. Normal blood pressure and heart rate response 4. Sestamibi/sestamibi perfusion scan pending; see separate report. Electronically Signed On 07-18-2024 10:52:52 SURVEY SUPERINTENDENT by Kaylyn Velasquez M.D. [email or web address]
[2024-07-14 08:11] VITALS: BMI 32.3
--- NOTE | 2024-07-14 08:14 | NMCV_ITS ---
NM ray perf SPECT r/s* [id number] Kale Harden Age: 78 Gender: M : 1945 Exam Date: 07/14/2024 08:14 Ordering Phys: Kaylyn Velasquez MD ([email or web address]) Technologist: BUD Stallworth Exam Location: [facility] Indications: cp STRESS TEST Please [facility] IMAGE PROTOCOL Rest/Stress 1 Day Radiopharmaceutical Dose (mCi) Administration Site Administered by Rest: Tc-99m 8.6 IV BUD Stallworth Sestamibi Stress:Tc-99m 30.8 IV BUD Garcia Sestamibi Rest: 14-Jul-2024 60 Discovery 630 Stress: 14-Jul-2024 30 Discovery 630 0.4mg Lexiscan. Images obtained in supine and prone position. SPECT RESULTS Technical Quality: Good Raw Data Analysis: Normal Image Corrections: No attenuation or motion correction applied Summed Stress Score: 8 Summed Rest Score: 8 Summed Difference Score: 1 PERFUSION FINDINGS Moderate area of moderately decreased tracer uptake involving the mid inferolateral, apical lateral, apical inferior and LV apex with no significant reversibility. Small area of slightly decreased tracer uptake was noted in the mid inferior region with some reversibility FUNCTIONAL RESULTS (calculated via Gated SPECT) Stress Image LV EF (%): 55 Stress EDV (mL):112 TID: 1.01 Stress ESV (mL):50 FUNCTIONAL FINDINGS: Segmental wall motion analysis revealed a slightly dyskinetic LV apex IMPRESSIONS 1. Myocardial perfusion imaging revealing moderate area of persistent decreased tracer uptake involving the inferolateral and apical segments suggesting myocardial scarring involving the distribution of the left circumflex artery/right coronary artery. A small area of slight reversibility in the mid inferior region, suggestive of ischemia in the distribution of the right coronary artery. (The summed stress score of 8 with a different score of 1) 2. Normal ejection fraction of 55%. 3. Wall motion abnormality as mentioned above 4. Mildly dilated LV cavity with an end-systolic volume of 50 mL Compared to the study from 01/07/2018, the small area of ischemia appears to be new Dr Kaylyn Velasquez MD [facility] (Electronically Signed) Final Date: 14 July 2024 20:54 S
[2024-07-14] MEDS: regadenoson 0.4 Mg/5 ml Syringe IVP (10:15)
[2024-07-14 10:28] VITALS: BP 106/64; PULSE 66
== END 2024-07-14 08:03 | disposition home or self-care (01) ==
PROVIDERS: PCP Family Medicine; Visit Provider Internal Medicine Cardiovascular Disease
DX: Z98.61 Coronary angioplasty status (principal); R94.39 Abnormal result of other cardiovascular function study; R06.02 Shortness of breath
CPT/HCPCS: 36415; 78452; 93017; 96374; A9500; J2785

== ENCOUNTER → 2024-07-22 14:45 | Outpatient (BNVA) | payer OTHER, SELFPAY | PROVIDERS: PCP Family Medicine; Visit Provider Internal Medicine Cardiovascular Disease | DX: I11.0 Hypertensive heart disease with heart failure (principal); I50.42 Chronic combined systolic (congestive) and diastolic (congestive) heart failure; Z79.01 Long term (current) use of anticoagulants; R06.02 Shortness of breath; R53.83 Other fatigue; I48.11 Longstanding persistent atrial fibrillation; I42.8 Other cardiomyopathies; Z95.0 Presence of cardiac pacemaker; J44.9 Chronic obstructive pulmonary disease, unspecified; G47.33 Obstructive sleep apnea (adult) (pediatric) | CPT/HCPCS: 36415; 80048; 85025; 99214 ==

== ENCOUNTER → 2024-11-25 08:22 | Outpatient (BNVA) | payer MEDICARE, OTHER, SELFPAY | PROVIDERS: PCP Family Medicine; Visit Provider Podiatrist Foot & Ankle Surgery | DX: M79.671 Pain in right foot (principal); M79.672 Pain in left foot; M21.41 Flat foot [pes planus] (acquired), right foot; M21.42 Flat foot [pes planus] (acquired), left foot | CPT/HCPCS: 73630; 99203 ==

== ENCOUNTER → 2024-12-28 09:31 | Outpatient (BNVA) | payer OTHER, SELFPAY | PROVIDERS: PCP Family Medicine; Visit Provider Nurse Practitioner Family | DX: I48.11 Longstanding persistent atrial fibrillation (principal); Z79.01 Long term (current) use of anticoagulants; I11.0 Hypertensive heart disease with heart failure; I50.42 Chronic combined systolic (congestive) and diastolic (congestive) heart failure; I42.8 Other cardiomyopathies; I95.9 Hypotension, unspecified; R53.83 Other fatigue; G47.33 Obstructive sleep apnea (adult) (pediatric); J44.89 Other specified chronic obstructive pulmonary disease; Z95.0 Presence of cardiac pacemaker; Z87.891 Personal history of nicotine dependence; R06.02 Shortness of breath | CPT/HCPCS: 80048; 83880; 85025; 99214 ==

== ENCOUNTER → 2025-02-24 09:56 | Outpatient (BNVA) | payer OTHER, SELFPAY | PROVIDERS: PCP Family Medicine; Visit Provider Podiatrist Foot & Ankle Surgery | DX: M21.41 Flat foot [pes planus] (acquired), right foot (principal); M21.42 Flat foot [pes planus] (acquired), left foot; M19.071 Primary osteoarthritis, right ankle and foot; M19.072 Primary osteoarthritis, left ankle and foot | CPT/HCPCS: 99213 ==

== ENCOUNTER 2025-05-27 15:55 | Emergency (ER) | payer OTHER, SELFPAY ==
--- OUTSIDE RECORDS SUMMARY | 2025-05-27 16:00 | XMS_ITS | Encounter Summary ---
Author Organization [facility] Address [address] [place] [address] Care Team Providers Care Storage Specialist Name Role Phone Sai Blackburn MD Primary Care Provider Encounter Details Date Type Department Care Team (Latest Contact Info) Description 12/24/2002 Outpatient Historical [facility] Cardiology- [place] [address] [place] [address] Kvng Moran MD NO ADDRESS ON FILE ATRIAL FIBRILLATION (CMS/HCC) (Primary Dx) Social History Tobacco Use Types Packs/Day Years Used Date Smoking Tobacco: Never Assessed Sex and Gender Information Value Date Recorded Sex Assigned at Not on file Legal Sex Male 6:03 AM ORACLE APPLICATION CONSULTANT Gender Identity Not on file Sexual Orientation Not on file documented as of this encounter Plan of Treatment Not on file documented as of this encounter Visit Diagnoses Diagnosis Atrial fibrillation (CMS/HCC)- Primary Atrial fibrillation documented in this encounter Care Teams Storage Specialist Relationship Specialty Start Date End Date Sai Blackburn MD [address] [place] [phone] PCP - General Internal Medicine 06/24/19 01/17/20 documented as of this encounter
--- OUTSIDE RECORDS SUMMARY | 2025-05-27 16:00 | XMS_ITS | Encounter Summary ---
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
--- OUTSIDE RECORDS SUMMARY | 2025-05-27 16:00 | XMS_ITS | Encounter Summary ---
Author Organization [facility] Address [address] [place] [address] Care Team Providers Care Crop Or Livestock Tenant Farmer Name Role Phone Sai Blackburn MD Primary Care Provider Encounter Details Date Type Department Care Team (Latest Contact Info) Description 11/10/2002 Outpatient [facility] [address] [place] [id number] La Ramon MD NO ADDRESS ON FILE ABDOMINAL PAIN UNSPEC SITE (Primary Dx) Social History Tobacco Use Types Packs/Day Years Used Date Smoking Tobacco: Never Assessed Sex and Gender Information Value Date Recorded Sex Assigned at Not on file Legal Sex Male 6:03 AM CYLINDER TESTER Gender Identity Not on file Sexual Orientation Not on file documented as of this encounter Plan of Treatment Not on file documented as of this encounter Visit Diagnoses Diagnosis Abdominal pain, unspecified site- Primary documented in this encounter Care Teams Crop Or Livestock Tenant Farmer Relationship Specialty Start Date End Date Sai Blackburn MD [address] [place] [phone] PCP - General Internal Medicine 06/24/19 01/17/20 documented as of this encounter
--- OUTSIDE RECORDS SUMMARY | 2025-05-27 16:00 | XMS_ITS | Encounter Summary ---
Author Organization [facility] Address [address] [place] [address] Care Team Providers Care Clipper Machine Operator Name Role Phone Sai Blackburn MD Primary Care Provider Encounter Details Date Type Department Care Team (Latest Contact Info) Description 04/22/2003 Outpatient [facility] [address] [place] [address] Kvng Moran MD NO ADDRESS ON FILE SURGERY FOLLOWUP, UNSPEC (Primary Dx) Social History Tobacco Use Types Packs/Day Years Used Date Smoking Tobacco: Never Assessed Sex and Gender Information Value Date Recorded Sex Assigned at Not on file Legal Sex Male 6:03 AM CHILD CARE SITTER Gender Identity Not on file Sexual Orientation Not on file documented as of this encounter Plan of Treatment Not on file documented as of this encounter Visit Diagnoses Diagnosis Follow-up examination, following unspecified surgery- Primary documented in this encounter Care Teams Clipper Machine Operator Relationship Specialty Start Date End Date Sai Blackburn MD [address] [place] [phone] PCP - General Internal Medicine 06/24/19 01/17/20 documented as of this encounter
--- OUTSIDE RECORDS SUMMARY | 2025-05-27 16:00 | XMS_ITS | Encounter Summary ---
Author Organization [facility] Address [address] [place] [address] Care Team Providers Care Architect In Training Name Role Phone Sai Blackburn MD Primary Care Provider Encounter Details Date Type Department Care Team (Late st Contact Info) Description 02/26/2001 Outpatient Historical [facility] Kvng Moran MD NO ADDRESS ON FILE Encounter for long-term (current) use of other medications (Primary Dx); Atrial fibrillation (CMS/HCC) Social History Tobacco Use Types Packs/Day Years Used Date Smoking Tobacco: Never Assessed Sex and Gender Information Value Date Recorded Sex Assigned at Not on file Legal Sex Male 6:03 AM AIR ANALYSIS TECHNICIAN Gender Identity Not on file Sexual Orientation Not on file documented as of this encounter Plan of Treatment Not on file documented as of this encounter Visit Diagnoses Diagnosis Encounter for long-term (current) use of other medications- Primary Atrial fibrillation (CMS/HCC) Atrial fibrillation documented in this encounter Care Teams Architect In Training Relationship Specialty Start Date End Date Sai Blackburn MD [address] [place] [phone] PCP - General Internal Medicine 06/24/19 01/17/20 documented as of this encounter
--- OUTSIDE RECORDS SUMMARY | 2025-05-27 16:00 | XMS_ITS | Encounter Summary ---
Author Organization [facility] Address [address] [place] [address] Care Team Providers Care Radiology Assistant Name Role Phone Sai Blackburn MD Primary Care Provider [phone] Encounter Details Date Type Department Care Team (Latest Contact Info) Description 10/01/2002 Outpatient Historical [facility] Cardiology Ancillary Services-[place] [address] [place] [address] Kvng Moran MD NO ADDRESS ON FILE Sinoatrial node dysfunct (Primary Dx); CARDIAC PACEMAKER IN SITU Social History Tobacco Use Types Packs/Day Years Used Date Smoking Tobacco: Never Assessed Sex and Gender Information Value Date Recorded Sex Assigned at Not on file Legal Sex Male 6:03 AM CIGAR PATCHER Gender Identity Not on file Sexual Orientation Not on file documented as of this encounter Plan of Treatment Not on file documented as of this encounter Visit Diagnoses Diagnosis Sinoatrial node dysfunct- Primary Sinoatrial node dysfunction Cardiac pacemaker in situ documented in this encounter Care Teams Radiology Assistant Relationship Specialty Start Date End Date Sai Blackburn MD [address] [place] [phone] PCP - General Internal Medicine 06/24/19 01/17/20 documented as of this encounter
--- OUTSIDE RECORDS SUMMARY | 2025-05-27 16:00 | XMS_ITS | Encounter Summary ---
Author Organization [facility] Address [address] [place] [address] Care Team Providers Care Psychiatric Social Worker Supervisor Name Role Phone Sai Blackburn MD Primary Care Provider Encounter Details Date Type Department Care Team (Latest Contact Info) Description 04/21/2003 Outpatient Historical [facility] Cardiology- [place] [address] [place] [address] Kvng Moran MD NO ADDRESS ON FILE ATRIAL FIBRILLATION (CMS/HCC) (Primary Dx); ATRIAL FLUTTER (CMS/HCC) Social History Tobacco Use Types Packs/Day Years Used Date Smoking Tobacco: Never Assessed Sex and Gender Information Value Date Recorded Sex Assigned at Not on file Legal Sex Male 6:03 AM MEDIA TECHNICIAN Gender Identity Not on file Sexual Orientation Not on file documented as of this encounter Plan of Treatment Not on file documented as of this encounter Visit Diagnoses Diagnosis Atrial fibrillation (CMS/HCC)- Primary Atrial fibrillation Atrial flutter (CMS/HCC) Atrial flutter documented in this encounter Care Teams Psychiatric Social Worker Supervisor Relationship Specialty Start Date End Date Sai Blackburn MD [address] [place] [phone] PCP - General Internal Medicine 06/24/19 01/17/20 documented as of this encounter
--- OUTSIDE RECORDS SUMMARY | 2025-05-27 16:00 | XMS_ITS | Encounter Summary ---
Author Organization [facility] Address [address] [place] [address] Care Team Providers Care Cannery Tender Engineer Name Role Phone Sai Blackburn MD Primary Care Provider [phone] Encounter Details Date Type Department Care Team (Latest Contact Info) Description 11/06/2002 Outpatient Historical [facility] Cardiology Ancillary Services-[place] [address] [place] [address] Kvng Moran MD NO ADDRESS ON FILE Sinoatrial node dysfunct (Primary Dx); CARDIAC PACEMAKER IN SITU Social History Tobacco Use Types Packs/Day Years Used Date Smoking Tobacco: Never Assessed Sex and Gender Information Value Date Recorded Sex Assigned at Not on file Legal Sex Male 6:03 AM FINANCIAL RECORDING CLERK Gender Identity Not on file Sexual Orientation Not on file documented as of this encounter Plan of Treatment Not on file documented as of this encounter Visit Diagnoses Diagnosis Sinoatrial node dysfunct- Primary Sinoatrial node dysfunction Cardiac pacemaker in situ documented in this encounter Care Teams Cannery Tender Engineer Relationship Specialty Start Date End Date Sai Blackburn MD [address] [place] [phone] PCP - General Internal Medicine 06/24/19 01/17/20 documented as of this encounter
--- OUTSIDE RECORDS SUMMARY | 2025-05-27 16:00 | XMS_ITS | Encounter Summary ---
Author Organization [facility] Address [address] [place] [address] Care Team Providers Care Radio News Writer Name Role Phone Sai Blackburn MD Primary Care Provider Encounter Details Date Type Department Care Team (Latest Contact Info) Description 10/02/2002 Outpatient [facility] [address] [place] [address] La Ramon MD NO ADDRESS ON FILE ATRIAL FIBRILLATION (CMS/HCC) (Primary Dx); HYPERLIPIDEMIA NEC/NOS; IRRITABLE COLON Social History Tobacco Use Types Packs/Day Years Used Date Smoking Tobacco: Never Assessed Sex and Gender Information Value Date Recorded Sex Assigned at Not on file 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
--- OUTSIDE RECORDS SUMMARY | 2025-05-27 16:00 | XMS_ITS | Encounter Summary ---
Author Organization [facility] Address [address] [place] [address] Care Team Providers Care Electrical Engineering Teacher Name Role Phone Sai Blackburn MD Primary Care Provider Encounter Details Date Type Department Care Team (Late st Contact Info) Description 08/27/2007 Outpatient Historical [facility] Cardiology- [place] [address] [place] [phone] Kvng Moran MD NO ADDRESS ON FILE Social History Tobacco Use Types Packs/Day Years Used Date Smoking Tobacco: Never Assessed Sex and Gender Information Value Date Recorded Sex Assigned at Not on file 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
--- OUTSIDE RECORDS SUMMARY | 2025-05-27 16:00 | XMS_ITS | Encounter Summary ---
Author Organization [facility] Address [address] [place] [address] Care Team Providers Care Sales Developer Name Role Phone Sai Blackburn MD Primary Care Provider Encounter Details Date Type Department Care Team (Latest Contact Info) Description 05/21/2003 Outpatient Historical [facility] Imaging Services-[place] [address] [place] [address] La Ramon MD NO ADDRESS ON FILE NONTOX UNINODULAR GOITER (Primary Dx) Social History Tobacco Use Types Packs/Day Years Used Date Smoking Tobacco: Never Assessed Sex and Gender Information Value Date Recorded Sex Assigned at Not on file 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
--- OUTSIDE RECORDS SUMMARY | 2025-05-27 16:00 | XMS_ITS | Encounter Summary ---
Author Organization [facility] Address [address] [place] [address] Care Team Providers Care Relief Manager Name Role Phone Sai Blackburn MD Primary Care Provider [phone] Encounter Details Date Type Department Care Team (Late st Contact Info) Description 08/27/2007 Outpatient Historical [facility] Cardiology Ancillary Services-[place] [address] [place] [address] Kvng Moran MD NO ADDRESS ON FILE Social History Tobacco Use Types Packs/Day Years Used Date Smoking Tobacco: Never Assessed Sex and Gender Information Value Date Recorded Sex Assigned at Not on file 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
--- OUTSIDE RECORDS SUMMARY | 2025-05-27 16:00 | XMS_ITS | Encounter Summary ---
Author Organization [facility] Address [address] [place] [address] Care Team Providers Care Data Management Engineer Name Role Phone Sai Blackburn MD Primary Care Provider Encounter Details Date Type Department Care Team (Latest Contact Info) Description 11/17/[address] [facility] Endoscopy [address] 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
--- OUTSIDE RECORDS SUMMARY | 2025-05-27 16:00 | XMS_ITS | Encounter Summary ---
Author Organization [facility] Address [address] [place] [address] Care Team Providers Care Water/Wastewater Project Engineer Name Role Phone Sai Blackburn MD Primary Care Provider Encounter Details Date Type Department Care Team (Latest Contact Info) Description 12/24/2002 Outpatient Historical [facility] Cardiology Ancillary Services-[place] [address] [place] [address] Kvng Moran MD NO ADDRESS ON FILE Sinoatrial node dysfunct (Primary Dx); CARDIAC PACEMAKER IN SITU Social History Tobacco Use Types Packs/Day Years Used Date Smoking Tobacco: Never Assessed Sex and Gender Information Value Date Recorded Sex Assigned at Not on file 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
--- OUTSIDE RECORDS SUMMARY | 2025-05-27 16:00 | XMS_ITS | Encounter Summary ---
Author Organization [facility] Address [address] [place] [address] Care Team Providers Care Patient Case Manager Name Role Phone Sai Blackburn MD Primary Care Provider [phone] Encounter Details Date Type Department Care Team (Late st Contact Info) Description 11/14/2015 Ancillary Orders [facility] Electrophysiology Lab [address] [place] [address] Kvng Moran MD NO ADDRESS ON FILE Social History Tobacco Use Types Packs/Day Years Used Date Smoking Tobacco: Former Cigarettes 3 25 0 09/09/1964 - 09/09/1989 Smokeless Tobacco: Never Alcohol Use Standard Drinks/Week Comments Yes 2 (1 standard drink = 0.6 oz pur e alcohol) Sex and Gender Information Value Date Recorded Sex Assigned at Not on file Legal Sex Male 6:03 AM CAN SLIDER Gender Identity Not on file Sexual Orientation Not on file Occupation Industry Job Start Date Job End Date disability 2001 Not on file Not on file Not on file documented as of this encounter Plan of Treatment Not on file documented as of this encounter Visit Diagnoses Not on filedocumented in this encounter Care Teams Patient Case Manager Relationship Specialty Start Date End Date Sai Blackburn MD [address] [place] [address] PCP - General Internal Medicine 06/24/19 01/17/20 documented as of this encounter
--- OUTSIDE RECORDS SUMMARY | 2025-05-27 16:00 | XMS_ITS | Encounter Summary ---
Author Organization [facility] Address [address] [place] [address] Care Team Providers Care Geoint Analyst Name Role Phone Sai Blackburn MD Primary Care Provider Encounter Details Date Type Department Care Team (Late st Contact Info) Description 11/07/2007 Outpatient Historical [facility] Cardiology Ancillary Services-[place] [address] [place] [address] Kvng Moran MD NO ADDRESS ON FILE Social History Tobacco Use Types Packs/Day Years Used Date Smoking Tobacco: Never Assessed Sex and Gender Information Value Date Recorded Sex Assigned at Not on file Legal Sex Male 6: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
--- OUTSIDE RECORDS SUMMARY | 2025-05-27 16:00 | XMS_ITS | Encounter Summary ---
Author Organization [facility] Address [address] [place] [address] Care Team Providers Care Stenotypist Name Role Phone Sai Blackburn MD Primary Care Provider Encounter Details Date Type Department Care Team (Latest Contact Info) Description 07/24/2002 Outpatient Historical [facility] Cardiology Ancillary Services-[place] [address] [place] [address] Ramiro Blackwell MD [address] [address] [place] [phone] ATRIAL FLUTTER (CMS/HCC) (Primary Dx) Social History Tobacco Use Types Packs/Day Years Used Date Smoking Tobacco: Never Assessed Sex and Gender Information Value Date Recorded Sex Assigned at Not on file Legal Sex Male 6:03 AM RN CCU Gender Identity Not on file Sexual Orientation Not on file documented as of this encounter Plan of Treatment Not on file documented as of this encounter Visit Diagnoses Diagnosis Atrial flutter (CMS/HCC)- Primary Atrial flutter documented in this encounter Care Teams Stenotypist Relationship Specialty Start Date End Date Sai Blackburn MD [address] [place] [phone] PCP - General Internal Medicine 06/24/19 01/17/20 documented as of this encounter
--- OUTSIDE RECORDS SUMMARY | 2025-05-27 16:00 | XMS_ITS | Encounter Summary ---
Author Organization [facility] Address [address] [place] [address] Care Team Providers Care Knife Setter Name Role Phone Sai Blackburn MD Primary Care Provider [phone] Encounter Details Date Type Department Care Team (Latest Contact Info) Description 08/03/2002 Outpatient Historical [facility] Medicine [place] [address] [facility] [address] [place] [address] Stacia Carty MD IRRITABLE COLON (Primary Dx) Social History Tobacco Use Types Packs/Day Years Used Date Smoking Tobacco: Never Assessed Sex and Gender Information Value Date Recorded Sex Assigned at Not on file Legal Sex Male 6:03 AM OUTBOUND SALES AGENT Gender Identity Not on file Sexual Orientation Not on file documented as of this encounter Plan of Treatment Not on file documented as of this encounter Visit Diagnoses Diagnosis Irritable bowel syndrome- Primary documented in this encounter Care Teams Knife Setter Relationship Specialty Start Date End Date Sai Blackburn MD [address] [place] [address] PCP - General Internal Medicine 06/24/19 01/17/20 documented as of this encounter
--- OUTSIDE RECORDS SUMMARY | 2025-05-27 16:00 | XMS_ITS | Encounter Summary ---
Author Organization [facility] Address [address] [place] [address] Care Team Providers Care Vending Machine Host/Hostess Name Role Phone Sai Blackburn MD Primary Care Provider Encounter Details Date Type Department Care Team (Latest Contact Info) Description 2002 Outpatient Historical [facility] Imaging Services-[facility] [place] [address] [place] [address] La Ramon MD NO ADDRESS ON FILE ABDOMINAL PAIN RUQ (Primary Dx) Social History Tobacco Use Types Packs/Day Years Used Date Smoking Tobacco: Never Assessed Sex and Gender Information Value Date Recorded Sex Assigned at Not on file 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
--- OUTSIDE RECORDS SUMMARY | 2025-05-27 16:00 | XMS_ITS | Encounter Summary ---
Author Organization [facility] Address [address] [place] [address] Care Team Providers Care Converter Skimmer Name Role Phone Sai Blackburn MD Primary Care Provider [phone] Encounter Details Date Type Department Care Team (Latest Contact Info) Description 06/26/2001 Outpatient Historical [facility] Cardiology- [place] [address] [place] [address] Kvng Moran MD NO ADDRESS ON FILE Atrial fibrillation (CMS/HCC) (Primary Dx) Social History Tobacco Use Types Packs/Day Years Used Date Smoking Tobacco: Never Assessed Sex and Gender Information Value Date Recorded Sex Assigned at Not on file 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
--- OUTSIDE RECORDS SUMMARY | 2025-05-27 16:00 | XMS_ITS | Encounter Summary ---
Author Organization [facility] Address [address] [place] [address] Care Team Providers Care Underwater Hunter Trapper Name Role Phone Sai Blackburn MD Primary Care Provider [phone] Encounter Details Date Type Department Care Team (Latest Contact Info) Description 07/02/2001 Outpatient Historical [facility] Marques Rodriguez Jr., MD [address] [place] [address] FDC (current) use of anticoagulants (Primary Dx) Social History Tobacco Use Types Packs/Day Years Used Date Smoking Tobacco: Never Assessed Sex and Gender Information Value Date Recorded Sex Assigned at Not on file Legal Sex Male 6:03 AM EMT P Gender Identity Not on file Sexual Orientation Not on file documented as of this encounter Plan of Treatment Not on file documented as of this encounter Visit Diagnoses Diagnosis archivist (current) use of anticoagulants- Primary Long-term (current) use of anticoagulants documented in this encounter Care Teams Underwater Hunter Trapper Relationship Specialty Start Date End Date Sai Blackburn MD [address] [place] [phone] PCP - General Internal Medicine 06/24/19 01/17/20 documented as of this encounter
--- OUTSIDE RECORDS SUMMARY | 2025-05-27 16:00 | XMS_ITS | Encounter Summary ---
Author Organization [facility] Address [address] [place] [address] Care Team Providers Care Devulcanizer Head Name Role Phone Sai Blackburn MD Primary Care Provider Encounter Details Date Type Department Care Team (Late st Contact Info) Description 03/21/2001 Outpatient Historical [facility] [place] MD [address] [place] [address] Other pulmonary embolism and infarction (CMS/HCC) (Primary Dx); retirement (current) use of anticoagulants Social History Tobacco Use Types Packs/Day Years Used Date Smoking Tobacco: Never Assessed Sex and Gender Information Value Date Recorded Sex Assigned at Not on file 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 Sex Male 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 Gender Identity Not on file Sexual Orientation Not on file documented as of this encounter Plan of Treatment Not on file documented as of this encounter Visit Diagnoses Diagnosis Other pulmonary embolism and infarction (CMS/HCC)- Primary Other pulmonary embolism and infarction salvage determiner (current) use of anticoagulants Long-term (current) use of anticoagulants documented in this encounter Care Teams Devulcanizer Head Relationship Specialty Start Date End Date Sai Blackburn MD [address] [place] [phone] PCP - General Internal Medicine 06/24/19 01/17/20 documented as of this encounter
--- OUTSIDE RECORDS SUMMARY | 2025-05-27 16:00 | XMS_ITS | Encounter Summary ---
Author Organization [facility] Address [address] [place] [address] Care Team Providers Care Clinical Systems Analyst Name Role Phone Sai Blackburn MD Primary Care Provider + [phone] Reason for Referral * Outpatient Services (Routine) - Closed Specialty Diagnoses / Procedures Referred By Contac t Referred To Contact Radiology Diagnoses Congestive heart failure, unspecified congestive heart failure chronicity, unspecified congestive heart failure type (CMS/HCC) Procedures ECHOCARDIOGRAM W/ CONTRAST AGENT ECHO COMPLETE Kvng Moran MD [facility] [place] [address] [place] [address] Phone: tel: fax: Referral ID Status Reason Start Date Expiration Date V isits Requested Visits Authorized [id number] Closed SGF MC TO SCHEDULE (SGF) 03/09/2016 04/09/2017 1 1 Encounter Details Date Type Department Care Team (Late st Contact Info) Description 03/09/2016 Ancillary Orders [facility] Cardiology- [place] [address] [place] [address] Kvng Moran MD NO ADDRESS ON FILE Congestive heart failure, unspecified congestive heart failure chronicity, unspecified congestive heart failure type (CMS/HCC) (Primary Dx) Social History Tobacco Use Types Packs/Day Years Used Date Smoking Tobacco: Former Cigarettes 3 25 0 09/09/1964 - 09/09/1989 Smokeless Tobacco: Never Alcohol Use Standard Drinks/Week Comments Yes 2 (1 standard drink = 0.6 oz pur e alcohol) Sex and Gender Information Value Date Recorded Sex Assigned at Not on file 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 Gender Identity Not on file Sexual Orientation Not on file Occupation Industry Job Start Date Job End Date disability 2001 Not on file Not on file Not on file documented as of this encounter Plan of Treatment Not on file documented as of this encounter Results * ECHOCARDIOGRAM W/ CONTRAST AGENT (03/09/2016 10:53 AM CDT) EJECTION FRACTION 29 INTERFACE SYSTEM 03/09/2016 9:58 AM CDT Narrative INTERFACE SYSTEM - 03/09/2016 1:46 PM CDT [facility]-[address] [place] [address] Transthoracic Echocardiography Patient: Fina Study ECHO Kale Burnett ID: COMPLETE Gender: Susan : 1945 Age: 70 Room: Study 03/09/2016 Pt Outpatient Date: Status: Study 09:58 AM [facility] #: [id number] Time: Ordering:Knvg Moran Interpreting:Bob Martínez MD Cash Sales Audit Clerk: Nigel Naranjo [facility] Indications and History: Congestive heart failure, unspecified congestive heart failure chronicity, unspecified congestive heart failure type [I50.9 (ICD-10-CM)]. Labs, prior tests, procedures, and surgery: Echocardiography (March 01, 2015). EF was 45%. Single-photon emission computed tomography (SPECT) (March 10, 2015). EF was 45%. Left heart catheterization (May 27, 2015). EF was 50%. Permanent pacemaker system implantation. Summary and Conclusion: - Left ventricle: Systolic function was severely reduced. Assessment of systolic function was difficult due to image quality. Assessment of systolic function was difficult due to underlying arrhythmia. The left ventricular ejection fraction was 29%, by biplane method of disks. The visually estimated ejection fraction was in the range of 25% to 30%. Diffuse hypokinesis. Interventricular septum shows dyssynergy, consistent with previous thoracotomy, conduction delay or RV pacing. Findings consistent with left ventricular diastolic dysfunction. - Right ventricle: Not well visualized. Pacer wire or catheter noted in right ventricle. Systolic function was normal. - Left atrium: The atrium was mildly dilated. - Aortic valve: Mildly thickened leaflets. Trivial to mild regurgitation. - Mitral valve: Mildly thickened Mild to moderate regurgitation. - Tricuspid valve: Mild-moderate regurgitation. - Pulmonic valve: Mild regurgitation. Comparison: Compared to the previous study, LV systolic functionhas worsened. Procedure information: Comparison was made to the study of March 01, 2015. Study status: Routine. Procedure: Contrast study performed to evaluate left ventricular endocardial borders due to suboptimal non-contrast images. Transthoracic echocardiography. Image quality was adequate. The study was technically difficult due to irregular rhythm. Scanning was performed from the parasternal, apical, subcostal, and suprasternal notch acoustic windows. Intravenous contrast (Definity) was administered to opacify the LV. Study components: M-mode, 2D, complete spectral Doppler, and color Doppler. Height: Height: 177.8cm. Height: 70in. Weight: Weight: 106kg. Weight: 233.2lb. Body mass index: BMI: 33.5kg/m\S\2. Body surface area: BSA: 2.32m\S\2. Blood pressure: 114/66. Patient status: Outpatient. Study date: Study date: March 09, 2016. Location: Echo laboratory. Cardiac Anatomy: LEFT VENTRICLE: Systolic function was severely reduced. Assessment of systolic function was difficult due to image quality. Assessment of systolic function was difficult due to underlying arrhythmia. The left ventricular ejection fraction was 29%, by biplane method of disks. The visually estimated ejection fraction was in the range of 25% to 30%. Diffuse hypokinesis. Interventricular septum shows dyssynergy, consistent with previous thoracotomy, conduction delay or RV pacing. Findings consistent with left ventricular diastolic dysfunction. RIGHT VENTRICLE: Not well visualized. Pacer wire or catheter noted in right ventricle. Systolic function was normal. LEFT ATRIUM: The atrium was mildly dilated. AORTIC VALVE: Mildly thickened leaflets. Doppler: There was no stenosis. Trivial to mild regurgitation. Peak velocity ratio of LVOT to aortic valve: 0.67. Valve area: 2.24cm\S\2 (Vmax). Indexed valve area: 0.96cm\S\2/m\S\2 (Vmax). Peak gradient: 5mm Hg (S). MITRAL VALVE: Mildly thickened Doppler: There was no evidence for stenosis. Mild to moderate regurgitation. Valve area by pressure half-time: 3.13cm\S\2. Indexed valve area by pressure half-time: 1.35cm\S\2/m\S\2. Peak gradient: 3mm Hg (D). TRICUSPID VALVE: Doppler: Mild-moderate regurgitation. PULMONIC VALVE: Doppler: Mild regurgitation. Peak gradient: 4mm Hg (S). 2D measurements Adult Normal Range Left ventricle LVID ED, chord, PLAX *52.59 mm 43-52 LVID ES, chord, PLAX 31.47 mm 23-38 FS, chord, PLAX 40 % >29 LVPW, ED 12.14 mm IVS/LVPW ratio, ED 1.19 <1.3 Vol ED, MOD1 187.5 ml Vol ES, MOD1 129.1 ml EF, MOD1 31.14 % Stroke vol, MOD1 58.4 ml Vol index, ED, MOD1 81 ml/m\S\2 Vol index, ES, MOD1 56 ml/m\S\2 Stroke index, MOD1 25.1 ml/m\S\2 Vol ED, MOD2 *187.4 ml 62-170 Vol ES, MOD2 132.8 ml EF, MOD2 29.14 % Vol index, ED, MOD2 81 ml/m\S\2 Vol index, ES, MOD2 57 ml/m\S\2 Ventricular septum IVS, ED 14.48 mm LVOT Diam, S 20.7 mm AP diam 20.69 mm Area 3.37 cm\S\2 Aorta Root diam, ED 31.45 mm AAo AP diam, S 31.5 mm Left atrium AP dim ES, PLAX 37.33 mm 23-38 SI dim, A4C *64.62 mm 29-53 Area ES, A4C *24.4 cm\S\2 8.8-23.4 Vol, S 97 ml Vol index, S 41.8 ml/m\S\2 Right atrium SI dim, ES, A4C *64.01 mm 34-49 Right ventricle RVID ED, PLAX 29.15 mm 19-38 Doppler measurements Adult Normal Range Left ventricle IVRT *106 ms 60-100 LVOT Peak dorothea, S 73.2 cm/s Aortic valve Peak dorothea, S 109.88 cm/s Peak gradient, S 5 mm Hg Peak dorothea ratio, LVOT/AV 0.67 Area, Vmax 2.24 cm\S\2 Area index (Vmax) 0.96 cm\S\2/m\S\2 Mitral valve Peak E dorothea 85.43 cm/s Peak A dorothea 29.39 cm/s Deceleration time *242 ms 150-230 Pressure half-time 70 ms Peak gradient, D 3 mm Hg Peak E/A ratio 2.91 Area (PHT) 3.13 cm\S\2 Area index (PHT) 1.35 cm\S\2/m\S\2 Tricuspid valve Regurg peak dorothea 237.71 cm/s Peak RV-RA gradient, S 23 mm Hg Max regurg dorothea 237.71 cm/s Pulmonic valve Peak dorothea, S 95.71 cm/s Peak gradient, S 4 mm Hg Other echo measurements Adult Normal Range Other Legend: Mean values are shown as u=mean value. Asterisk (*) cronin values outside specified normal range. [facility] are accredited with the Intersocietal Accreditation Commission - Echocardiography. Prepared and Electronically Authenticated Bob Martínez MD Confirmed 03/09/2016 13:46 Procedure Note Jacky Martínez MD - 03/09/2016 [facility] [address] [facility] [address] [place] [address] Transthoracic Echocardiography Patient: Fina Study ECHO Kale Burnett ID: COMPLETE Gender: M : 1945 Age: 70 Room: Study 03/09/2016 Pt Outpatient Date: Status: Study 09:58 AM [facility] #: [id number] Time: Ordering:Kvng Moran Interpreting:Bob Martínez MD Cash Sales Audit Clerk: Nigel Naranjo [facility] Indications and History: Congestive heart failure, unspecified congestive heart failure chronicity, unspecified congestive heart failure type [I50.9 (ICD-10-CM)]. Labs, prior tests, procedures, and surgery: Echocardiography (March 01, 2015). EF was 45%. Single-photon emission computed tomography (SPECT) (March 10, 2015). EF was 45%. Left heart catheterization (May 27, 2015). EF was 50%. Permanent pacemaker system implantation. Summary and Conclusion: - Left ventricle: Systolic function was severely reduced. Assessment of systolic function was difficult due to image quality. Assessment of systolic function was difficult due to underlying arrhythmia. The left ventricular ejection fraction was 29%, by biplane method of disks. The visually estimated ejection fraction was in the range of 25% to 30%. Diffuse hypokinesis. Interventricular septum shows dyssynergy, consistent with previous thoracotomy, conduction delay or RV pacing. Findings consistent with left ventricular diastolic dysfunction. - Right ventricle: Not well visualized. Pacer wire or catheter noted in right ventricle. Systolic function was normal. - Left atrium: The atrium was mildly dilated. - Aortic valve: Mildly thickened leaflets. Trivial to mild regurgitation. - Mitral valve: Mildly thickened Mild to moderate regurgitation. - Tricuspid valve: Mild-moderate regurgitation. - Pulmonic valve: Mild regurgitation. Comparison: Compared to the previous study, LV systolic functionhas worsened. Procedure information: Comparison was made to the study of March 01, 2015. Study status: Routine. Procedure: Contrast study performed to evaluate left ventricular endocardial borders due to suboptimal non-contrast images. Transthoracic echocardiography. Image quality was adequate. The study was technically difficult due to irregular rhythm. Scanning was performed from the parasternal, apical, subcostal, and suprasternal notch acoustic windows. Intravenous contrast (Definity) was administered to opacify the LV. Study components: M-mode, 2D, complete spectral Doppler, and color Doppler. Height: Height: 177.8cm. Height: 70in. Weight: Weight: 106kg. Weight: 233.2lb. Body mass index: BMI: 33.5kg/m\S\2. Body surface area: BSA: 2.32m\S\2. Blood pressure: 114/66. Patient status: Outpatient. Study date: Study date: March 09, 2016. Location: Echo laboratory. Cardiac Anatomy: LEFT VENTRICLE: Systolic function was severely reduced. Assessment of systolic function was difficult due to image quality. Assessment of systolic function was difficult due to underlying arrhythmia. The left ventricular ejection fraction was 29%, by biplane method of disks. The visually estimated ejection fraction was in the range of 25% to 30%. Diffuse hypokinesis. Interventricular septum shows dyssynergy, consistent with previous thoracotomy, conduction delay or RV pacing. Findings consistent with left ventricular diastolic dysfunction. RIGHT VENTRICLE: Not well visualized. Pacer wire or catheter noted in right ventricle. Systolic function was normal. LEFT ATRIUM: The atrium was mildly dilated. AORTIC VALVE: Mildly thickened leaflets. Doppler: There was no stenosis. Trivial to mild regurgitation. Peak velocity ratio of LVOT to aortic valve: 0.67. Valve area: 2.24cm\S\2 (Vmax). Indexed valve area: 0.96cm\S\2/m\S\2 (Vmax). Peak gradient: 5mm Hg (S). MITRAL VALVE: Mildly thickened Doppler: There was no evidence for stenosis. Mild to moderate regurgitation. Valve area by pressure half-time: 3.13cm\S\2. Indexed valve area by pressure half-time: 1.35cm\S\2/m\S\2. Peak gradient: 3mm Hg (D). TRICUSPID VALVE: Doppler: Mild-moderate regurgitation. PULMONIC VALVE: Doppler: Mild regurgitation. Peak gradient: 4mm Hg (S). 2D measurements Adult Normal Range Left ventricle LVID ED, chord, PLAX *52.59 mm 43-52 LVID ES, chord, PLAX 31.47 mm 23-38 FS, chord, PLAX 40 % >29 LVPW, ED 12.14 mm IVS/LVPW ratio, ED 1.19 <1.3 Vol ED, MOD1 187.5 ml Vol ES, MOD1 129.1 ml EF, MOD1 31.14 % Stroke vol, MOD1 58.4 ml Vol index, ED, MOD1 81 ml/m\S\2 Vol index, ES, MOD1 56 ml/m\S\2 Stroke index, MOD1 25.1 ml/m\S\2 Vol ED, MOD2 *187.4 ml 62-170 Vol ES, MOD2 132.8 ml EF, MOD2 29.14 % Vol index, ED, MOD2 81 ml/m\S\2 Vol index, ES, MOD2 57 ml/m\S\2 Ventricular septum IVS, ED 14.48 mm LVOT Diam, S 20.7 mm AP diam 20.69 mm Area 3.37 cm\S\2 Aorta Root diam, ED 31.45 mm AAo AP diam, S 31.5 mm Left atrium AP dim ES, PLAX 37.33 mm 23-38 SI dim, A4C *64.62 mm 29-53 Area ES, A4C *24.4 cm\S\2 8.8-23.4 Vol, S 97 ml Vol index, S 41.8 ml/m\S\2 Right atrium SI dim, ES, A4C *64.01 mm 34-49 Right ventricle RVID ED, PLAX 29.15 mm 19-38 Doppler measurements Adult Normal Range Left ventricle IVRT *106 ms 60-100 LVOT Peak dorothea, S 73.2 cm/s Aortic valve Peak dorothea, S 109.88 cm/s Peak gradient, S 5 mm Hg Peak dorothea ratio, LVOT/AV 0.67 Area, Vmax 2.24 cm\S\2 Area index (Vmax) 0.96 cm\S\2/m\S\2 Mitral valve Peak E dorothea 85.43 cm/s Peak A dorothea 29.39 cm/s Deceleration time *242 ms 150-230 Pressure half-time 70 ms Peak gradient, D 3 mm Hg Peak E/A ratio 2.91 Area (PHT) 3.13 cm\S\2 Area index (PHT) 1.35 cm\S\2/m\S\2 Tricuspid valve Regurg peak dorothea 237.71 cm/s Peak RV-RA gradient, S 23 mm Hg Max regurg dorothea 237.71 cm/s Pulmonic valve Peak dorothea, S 95.71 cm/s Peak gradient, S 4 mm Hg Other echo measurements Adult Normal Range Other Legend: Mean values are shown as u=mean value. Asterisk (*) cronin values outside specified normal range. [facility] are accredited with the Intersocietal Accreditation Commission - Echocardiography. Prepared and Electronically Authenticated Bob Martínez MD Confirmed 03/09/2016 13:46 Kvng Moran MD ORDERABLES Final Resul t INTERFACE SYSTEM Refer to clinic/hospital department documented in this encounter Visit Diagnoses Diagnosis Congestive heart failure, unspecified congestive heart failure chronicity, unspecified congestive heart failure type (CMS/HCC) Congestive heart failure, unspecified congestive heart failure chronicity, unspecified congestive heart failure type (CMS/HCC)- Primary documented in this encounter Care Teams Clinical Systems Analyst Relationship Specialty Start Date End Date Sai Blackburn MD [address] [place] [id number] PCP - General Internal Medicine 06/24/19 01/17/20 documented as of this encounter
--- OUTSIDE RECORDS SUMMARY | 2025-05-27 16:00 | XMS_ITS | Encounter Summary ---
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 Encounter Details Date Type Department Care Team (Late st Contact Info) Description 11/14/2015 Ancillary Orders [facility] Cardiology- [place] [address] [place] [address] Kvng Moran MD NO ADDRESS ON FILE Pacemaker battery depletion (Primary Dx) Social History Tobacco Use Types Packs/Day Years Used Date Smoking Tobacco: Former Cigarettes 3 25 0 09/09/1964 - 09/09/1989 Smokeless Tobacco: Never Alcohol Use Standard Drinks/Week Comments Yes 2 (1 standard drink = 0.6 oz pur e alcohol) Sex and Gender Information Value Date Recorded Sex Assigned at Not on file 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 Explantation of permanent dual-chamber pacemaker. 2. Implantation of permanent dual-chamber pacemaker. PREOPERATIVE DIAGNOSES: 1. Permanent pacemaker battery at end of life. 2. History of sinoatrial node disease manifest as tachycardia-bradycardia. POSTOPERATIVE DIAGNOSES: 1. Permanent pacemaker battery at end of life. 2. History of sinoatrial node disease manifest as tachycardia-bradycardia. ESTIMATED BLOOD LOSS: Less than 5 mL. CONTRAST: 0 mL. FLUOROSCOPY TIME: 0 minutes. MATERIALS USED: 1. Device explanted was a Medtronic Sensia, model number SEDR01, serial number [id number]. 2. Right atrial lead reused was a Medtronic 5534, serial number [id number]. 3. Right ventricular lead: A Medtronic 5034-58, serial number [id number]. 4. New pulse generator is a Medtronic Adapta ADDR01, serial number [id number]. PROCEDURE: After informed consent was obtained, the patient was taken to the electrophysiology lab room #5 in a fasting, nonsedated state. Timeout was called. Prophylactic antibiotics were given. IV sedation was obtained with Versed and fentanyl. The patient's left anterior chest and neck were prepped and draped in a sterile fashion. Local anesthesia was obtained with 1% lidocaine. Using a #10 blade, a skin incision was then made over the old generator and using blunt dissection down to the capsule, it was then incised. The incision was extended medially and laterally. The old pulse generator was then removed from the pocket. The patient had a very slow escape rhythm around 18 beats per minute. We disconnected the right ventricular lead from the old pulse generator, connected up to the new pulse generator by tightening up the set screw. Tug test was done twice and noted to be negative. Next we disconnected the right atrial lead from the old pulse generator and connected up to the new pulse generator by tightening up the set screws. Tug test was done again on the atrial lead twice and noted to be negative. Because of the different footprint, superior, medial, inferior wall of the pulse generator pocket was taken down. Previously placed antibiotic soaked solution sponge was later removed from the pocket. Pocket was irrigated with antibiotic solution. New pulse generator leads then coiled and placed in the generator pocket. The pocket itself was closed using a 2-0 V-Loc in continuous running stitch fashion. Second layer of 2-0 V-Loc was applied in continuous running stitch fashion. Skin edges reapproximated using 4-0 Vicryl in subcuticular stitch fashion. Steri-Strips and 4 x 4 dressing applied. Check of sponge and needle count x2 was noted to be correct. Device-based evaluation: Atrial lead: It was paced, lead impedence 811 ohms, threshold 0.75 V, 0.4 msec. Right ventricular lead: No R wave. It was paced. Lead impedence 860 ohms, threshold 0.5 V at 0.4 msec. The permanent pacemaker was programmed to the following settings: Lance pacing is DDDR mode, mode switch is on at 155 beats per minute, lower rate is 70 PPM, common upper rate 130 PPM. Right atrial lead: The output was 1.5 V at 0.40 msec, sensitivity 0.50 mV, pacing and sensing polarity bipolar. Lead monitor was adapted between 200 and 2000 ohms. Right ventricular lead: Output was 2.50 V at 0.40 msec, sensitivity 2.80 mV, pacing and sensing polarity bipolar, lead monitor was adapted between 200 and 2000 ohms. LINDA/amgorge - transcribed in Epic - us Kvng Moran MD FLUOROSCOPY ORDERABLES Mable l Result documented in this encounter Visit Diagnoses Diagnosis Pacemaker battery depletion- Primary Fitting and adjustment of cardiac pacemaker Pacemaker 2006 Medtronic- Primary Cardiac pacemaker in situ Pacemaker battery depletion Fitting and adjustment of cardiac pacemaker documented in this encounter Care Teams Travel Agent Relationship Specialty Start Date End Date Sai Blackburn MD [address] [place] [address] PCP - General Internal Medicine 06/24/19 01/17/20 documented as of this encounter
--- OUTSIDE RECORDS SUMMARY | 2025-05-27 16:00 | XMS_ITS | Encounter Summary ---
Author Organization [facility] Address [address] [place] [address] Care Team Providers Care Oil Recovery Unit Operator Name Role Phone Sai Blackburn MD Primary Care Provider Encounter Details Date Type Department Care Team (Latest Contact Info) Description 05/21/2003 Outpatient Historical [facility] Imaging Services-[facility] [place] [address] [place] [phone] La Ramon MD NO ADDRESS ON FILE NONTOX UNINODULAR GOITER (Primary Dx) Social History Tobacco Use Types Packs/Day Years Used Date Smoking Tobacco: Never Assessed Sex and Gender Information Value Date Recorded Sex Assigned at Not on file 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
--- OUTSIDE RECORDS SUMMARY | 2025-05-27 16:00 | XMS_ITS | Encounter Summary ---
Author Organization [facility] Address [address] [place] [address] Care Team Providers Care Corrosion Engineer Name Role Phone Sia Blackburn MD Primary Care Provider [phone] Encounter Details Date Type Department Care Team (Latest Contact Info) Description 10/02/2002 Outpatient Historical [facility] Imaging Services-[place] [address] [place] [phone] La Ramon MD NO ADDRESS ON FILE ATRIAL FIBRILLATION (CMS/HCC) (Primary Dx) Social History Tobacco Use Types Packs/Day Years Used Date Smoking Tobacco: Never Assessed Sex and Gender Information Value Date Recorded Sex Assigned at Not on file 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
--- OUTSIDE RECORDS SUMMARY | 2025-05-27 16:00 | XMS_ITS | Encounter Summary ---
Author Organization [facility] Address [address] [place] [address] Care Team Providers Care B2B Sales Consultant Name Role Phone Sai Blackburn MD Primary Care Provider [phone] Encounter Details Date Type Department Care Team (Latest Contact Info) Description 11/17/2002 Outpatient Historical [facility] Gastroenterology- [place] [address] [facility] [address] [place] [address] Víctor Gurrola MD [address] [facility] [address] [place] [address] Benign tg lg bowel (Primary Dx); DIARRHEA NOS Social History Tobacco Use Types Packs/Day Years Used Date Smoking Tobacco: Never Assessed Sex and Gender Information Value Date Recorded Sex Assigned at Not on file 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
--- OUTSIDE RECORDS SUMMARY | 2025-05-27 16:00 | XMS_ITS | Encounter Summary ---
Author Organization [facility] Address [address] [place] [address] Care Team Providers Care Land Resource Specialist Name Role Phone Sai Blackburn MD Primary Care Provider [phone] Encounter Details Date Type Department Care Team (Latest Contact Info) Description 08/27/2002 Outpatient Historical [facility] Cardiology Ancillary Services-[place] [address] [place] [address] Kvng Moran MD NO ADDRESS ON FILE Sinoatrial node dysfunct (Primary Dx); CARDIAC PACEMAKER IN SITU Social History Tobacco Use Types Packs/Day Years Used Date Smoking Tobacco: Never Assessed Sex and Gender Information Value Date Recorded Sex Assigned at Not on file 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
--- OUTSIDE RECORDS SUMMARY | 2025-05-27 16:00 | XMS_ITS | Encounter Summary ---
Author Organization [facility] Address [address] [place] [address] Care Team Providers Care Maintainability Engineer Name Role Phone Sai Blackburn MD Primary Care Provider Encounter Details Date Type Department Care Team (Latest Contact Info) Description 02/05/2003 Outpatient Historical [facility] Cardiology Ancillary Services-[place] [address] [place] [address] Kvng Moran MD NO ADDRESS ON FILE Sinoatrial node dysfunct (Primary Dx); CARDIAC PACEMAKER IN SITU Social History Tobacco Use Types Packs/Day Years Used Date Smoking Tobacco: Never Assessed Sex and Gender Information Value Date Recorded Sex Assigned at Not on file 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
--- OUTSIDE RECORDS SUMMARY | 2025-05-27 16:00 | XMS_ITS | Encounter Summary ---
Author Organization [facility] Address [address] [place] [address] Care Team Providers Care Flash Developer Name Role Phone Sai Blackburn MD Primary Care Provider Encounter Details Date Type Department Care Team (Latest Contact Info) Description 04/21/2003 Outpatient Historical [facility] Cardiology Ancillary Services-[place] [address] [place] [address] Kvng Moran MD NO ADDRESS ON FILE Sinoatrial node dysfunct (Primary Dx); CARDIAC PACEMAKER IN SITU Social History Tobacco Use Types Packs/Day Years Used Date Smoking Tobacco: Never Assessed Sex and Gender Information Value Date Recorded Sex Assigned at Not on file 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
--- OUTSIDE RECORDS SUMMARY | 2025-05-27 16:00 | XMS_ITS | Encounter Summary ---
Author Organization [facility] Address [address] [place] [address] Care Team Providers Care Fiberglass Boat Assembly Supervisor Name Role Phone Sai Blackburn MD Primary Care Provider Encounter Details Date Type Department Care Team (Latest Contact Info) Description 02/26/2001 Outpatient Historical [facility] Cardiology- [place] [address] [place] [address] Kvng Moran MD NO ADDRESS ON FILE Atrial fibrillation (CMS/HCC) (Primary Dx) Social History Tobacco Use Types Packs/Day Years Used Date Smoking Tobacco: Never Assessed Sex and Gender Information Value Date Recorded Sex Assigned at Not on file 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
[2025-05-27 16:01] VITALS: BP 128/72; PULSE 69; TEMP 37.4; O2SAT 94; BMI 31.5
--- OUTSIDE RECORDS SUMMARY | 2025-05-27 16:01 | XMS_ITS | Encounter Summary ---
Author Organization [facility] Address [address] [place] [address] Care Team Providers Care Snow Removal/Plowing Name Role Phone Sai Blackburn MD Primary Care Provider Encounter Details Date Type Department Care Team (Late st Contact Info) Description 08/18/2007 Outpatient Historical [facility] Endoscopy [place] [address] [place] [address] Víctor Gurrola MD [address] [place] [address] Social History Tobacco Use Types Packs/Day Years Used Date Smoking Tobacco: Never Assessed Sex and Gender Information Value Date Recorded Sex Assigned at Not on file 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
--- OUTSIDE RECORDS SUMMARY | 2025-05-27 16:01 | XMS_ITS | Encounter Summary ---
Author Organization [facility] Address [address] [place] [address] Care Team Providers Care Turpentine Farmer Name Role Phone Sai Blackburn MD Primary Care Provider [phone] Encounter Details Date Type Department Care Team (Latest Contact Info) Description 10/01/2001 Outpatient Historical [facility] Imaging Services-[place] [address] [place] [address] Vale Pires MD [address] [place] [address] ATRIAL FIBRILLATION (CMS/HCC) (Primary Dx) Social History Tobacco Use Types Packs/Day Years Used Date Smoking Tobacco: Never Assessed Sex and Gender Information Value Date Recorded Sex Assigned at Not on file Legal Sex Male 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
--- OUTSIDE RECORDS SUMMARY | 2025-05-27 16:01 | XMS_ITS | Encounter Summary ---
Author Organization [facility] Address [address] [place] [address] Care Team Providers Care Plywood Stock Grader Name Role Phone Sai Blackburn MD Primary Care Provider Encounter Details Date Type Department Care Team (Latest Contact Info) Description 12/09/2000 Outpatient Historical [facility] Imaging Services-[place] [address] [place] [address] Vale Pires MD [address] [place] [address] Pain in joint, lower leg (Primary Dx) Social History Tobacco Use Types Packs/Day Years Used Date Smoking Tobacco: Never Assessed Sex and Gender Information Value Date Recorded Sex Assigned at Not on file 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
--- OUTSIDE RECORDS SUMMARY | 2025-05-27 16:01 | XMS_ITS | Encounter Summary ---
Author Organization [facility] Address [address] [place] [address] Care Team Providers Care Rotary Engraver Name Role Phone Sai Blackburn MD Primary Care Provider Encounter Details Date Type Department Care Team (Latest Contact Info) Description 10/20/2004 Outpatient [facility] [address] [place] [address] La Ramon MD NO ADDRESS ON FILE HYPERLIPIDEMIA NEC/NOS (Primary Dx); ATRIAL FIBRILLATION (CMS/HCC); DEPRESSIVE DISORDER NEC; NONTOX MULTINODUL GOITER; VACCINE FOR STREP PNEUMONIAE Social History Tobacco Use Types Packs/Day Years Used Date Smoking Tobacco: Never Assessed Sex and Gender Information Value Date Recorded Sex Assigned at Not on file 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 Gender Identity Not on file Sexual Orientation Not on file documented as of this encounter Plan of Treatment Not on file documented as of this encounter Visit Diagnoses Diagnosis Other and unspecified hyperlipidemia- Primary Atrial fibrillation (CMS/HCC) Atrial fibrillation Depressive disorder, not elsewhere classified Nontoxic multinodular goiter Need for prophylactic vaccination against Streptococcus pneumoniae (pneumococcus) Need for prophylactic vaccination against streptococcus pneumoniae (pneumococcus) documented in this encounter Care Teams Rotary Engraver Relationship Specialty Start Date End Date Sai Blackburn MD [address] [facility] [place] [phone] PCP - General Internal Medicine 06/24/19 01/17/20 documented as of this encounter
--- OUTSIDE RECORDS SUMMARY | 2025-05-27 16:01 | XMS_ITS | Encounter Summary ---
Author Organization [facility] Address [address] [place] [address] Care Team Providers Care Clinical Reviewer Name Role Phone Sai Blackburn MD Primary Care Provider Encounter Details Date Type Department Care Team (Latest Contact Info) Description 06/13/2004 Outpatient Historical [facility] Cardiology Ancillary Services-[place] [address] [place] [address] Kvng Moran MD NO ADDRESS ON FILE Sinoatrial node dysfunct (Primary Dx); CARDIAC PACEMAKER IN SITU; ATRIAL FIBRILLATION (CMS/HCC) Social History Tobacco Use Types Packs/Day Years Used Date Smoking Tobacco: Never Assessed Sex and Gender Information Value Date Recorded Sex Assigned at Not on file 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
--- OUTSIDE RECORDS SUMMARY | 2025-05-27 16:01 | XMS_ITS | Encounter Summary ---
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 Social History Tobacco Use Types Packs/Day Years Used Date Smoking Tobacco: Never Assessed Sex and Gender Information Value Date Recorded Sex Assigned at Not on file 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
--- OUTSIDE RECORDS SUMMARY | 2025-05-27 16:01 | XMS_ITS | Encounter Summary ---
Author Organization [facility] Address [address] [place] [address] Care Team Providers Care Registered Nurse Maternity Name Role Phone Sai Blackburn MD Primary Care Provider Encounter Details Date Type Department Care Team (Latest Contact Info) Description 04/28/2004 Outpatient Historical [facility] Cardiology Ancillary Services-[place] [address] [place] [address] Kvng Moran MD NO ADDRESS ON FILE Sinoatrial node dysfunct (Primary Dx); CARDIAC PACEMAKER IN SITU Social History Tobacco Use Types Packs/Day Years Used Date Smoking Tobacco: Never Assessed Sex and Gender Information Value Date Recorded Sex Assigned at Not on file 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
--- OUTSIDE RECORDS SUMMARY | 2025-05-27 16:01 | XMS_ITS | Encounter Summary ---
Author Organization [facility] Address [address] [place] [address] Care Team Providers Care Brush Polisher Name Role Phone Sai Blackburn MD Primary Care Provider [phone] Encounter Details Date Type Department Care Team (Latest Contact Info) Description 06/29/2004 Outpatient Historical [facility] Endocrinology-[place] [address] [place] [address] Patricio Castellanos MD NO ADDRESS ON FILE NONTOX MULTINODUL GOITER (Primary Dx) Social History Tobacco Use Types Packs/Day Years Used Date Smoking Tobacco: Never Assessed Sex and Gender Information Value Date Recorded Sex Assigned at Not on file 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
--- OUTSIDE RECORDS SUMMARY | 2025-05-27 16:01 | XMS_ITS | Encounter Summary ---
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); nursing home (current) use of anticoagulants Social History Tobacco Use Types Packs/Day Years Used Date Smoking Tobacco: Never Assessed Sex and Gender Information Value Date Recorded Sex Assigned at Not on file 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 Gender Identity Not on file Sexual Orientation Not on file documented as of this encounter Plan of Treatment Not on file documented as of this encounter Visit Diagnoses Diagnosis 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
--- OUTSIDE RECORDS SUMMARY | 2025-05-27 16:01 | XMS_ITS | Encounter Summary ---
Author Organization [facility] Address [address] [place] [address] Care Team Providers Care Concrete Pump Operator Helper Name Role Phone Sai Blackburn MD Primary Care Provider [phone] Encounter Details Date Type Department Care Team (Latest Contact Info) Description 07/13/2002 Outpatient Historical [facility] Cardiac Investor Relations Director [address] [place] [address] Víctor Navarro MD [address] [facility] [address] [place] [address] CHEST PAIN NEC (Primary Dx) Social History Tobacco Use Types Packs/Day Years Used Date Smoking Tobacco: Never Assessed Sex and Gender Information Value Date Recorded Sex Assigned at Not on file Legal Sex Male 6:03 AM STONE TRIMMER Gender Identity Not on file Sexual Orientation Not on file documented as of this encounter Plan of Treatment Not on file documented as of this encounter Visit Diagnoses Diagnosis Other chest pain- Primary documented in this encounter Care Teams Concrete Pump Operator Helper Relationship Specialty Start Date End Date Sai Blackburn MD [address] [place] [address] PCP - General Internal Medicine 06/24/19 01/17/20 documented as of this encounter
--- OUTSIDE RECORDS SUMMARY | 2025-05-27 16:01 | XMS_ITS | Encounter Summary ---
Author Organization [facility] Address [address] [place] [address] Care Team Providers Care Beef Trimmer Name Role Phone Sai Blackburn MD Primary Care Provider [phone] Encounter Details Date Type Department Care Team (Latest Contact Info) Description 01/10/1999 Outpatient Historical [facility] Marques Rodriguez Jr., MD [address] [place] [address] intermediate (current) use of anticoagulants (Primary Dx) Social History Tobacco Use Types Packs/Day Years Used Date Smoking Tobacco: Never Assessed Sex and Gender Information Value Date Recorded Sex Assigned at Not on file 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
--- OUTSIDE RECORDS SUMMARY | 2025-05-27 16:01 | XMS_ITS | Encounter Summary ---
Author Organization [facility] Address [address] [place] [address] Care Team Providers Care Firer Locomotive Crane Name Role Phone Sai Blackburn MD Primary Care Provider Encounter Details Date Type Department Care Team (Latest Contact Info) Description 03/24/2019 Ancillary Orders [facility] Orthopedics - Orthopedic [facility] [address] [place] [address] Sebastián Thakkar MD [address] [place] [address] Chronic pain of right knee Social History Tobacco Use Types Packs/Day Years Used Date Smoking Tobacco: Former Cigarettes 3 25 0 09/09/1964 - 09/09/1989 Smokeless Tobacco: Never Alcohol Use Standard Drinks/Week Comments Yes 3 (1 standard drink = 0.6 oz pure alcohol) 1-2 drinks approx 2-3 times weekly Sex and Gender Information Value Date Recorded Sex Assigned at Not on file Legal Sex Male 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 Noted findings:subchondral cysts, subchondral sclerosis, periarticular osteophytes, joint subluxation and joint space narrowing without evidence of osteolytic lesions, osteoblastic lesions and evidence of fractures. Left knee components in excellent position without evidence of loosening, wear, subsidence or fracture or patellofemoral maltracking. us Sebastián Thakkar MD DIAGNOSTIC IMAGING [facility] Final Result documented in this encounter Visit Diagnoses Diagnosis Chronic pain of right knee Chronic pain of right knee documented in this encounter Care Teams Firer Locomotive Crane Relationship Specialty Start Date End Date Sai Blackburn MD [address] [place] [address] PCP - General Internal Medicine 06/24/19 01/17/20 documented as of this encounter
--- OUTSIDE RECORDS SUMMARY | 2025-05-27 16:01 | XMS_ITS | Encounter Summary ---
Author Organization [facility] Address [address] [place] [address] Care Team Providers Care Office Services Clerk Name Role Phone Sai Blackburn MD Primary Care Provider [phone] Encounter Details Date Type Department Care Team (Latest Contact Info) Description 10/19/2003 Outpatient [facility] [address] [place] [address] La Ramon MD NO ADDRESS ON FILE HYPERLIPIDEMIA NEC/NOS (Primary Dx); ELEV BL PRES W/O HYPERTN; IRON DEFIC ANEMIA NOS; Routine medical exam Social History Tobacco Use Types Packs/Day Years Used Date Smoking Tobacco: Never Assessed Sex and Gender Information Value Date Recorded Sex Assigned at Not on file 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 Gender Identity Not on file Sexual Orientation Not on file documented as of this encounter Plan of Treatment Not on file documented as of this encounter Visit Diagnoses Diagnosis Other and unspecified hyperlipidemia- Primary Elevated blood pressure reading without diagnosis of hypertension Iron deficiency anemia, unspecified Routine medical exam Routine general medical examination at a health care facility documented in this encounter Care Teams Office Services Clerk Relationship Specialty Start Date End Date Sai Blackburn MD [address] [place] [phone] PCP - General Internal Medicine 06/24/19 01/17/20 documented as of this encounter
--- OUTSIDE RECORDS SUMMARY | 2025-05-27 16:01 | XMS_ITS | Encounter Summary ---
Author Organization [facility] Address [address] [place] [address] Care Team Providers Care Radiotelegraph Operator Name Role Phone Sai Blackburn MD Primary Care Provider [phone] Encounter Details Date Type Department Care Team (Latest Contact Info) Description 08/19/1998 Outpatient Historical [facility] Marques Rodriguez Jr., MD [address] [place] [phone] FPC (current) use of anticoagulants (Primary Dx) Social History Tobacco Use Types Packs/Day Years Used Date Smoking Tobacco: Never Assessed Sex and Gender Information Value Date Recorded Sex Assigned at Not on file Legal Sex Male 6:03 AM ACADEMIC PHYSICIAN Gender Identity Not on file Sexual Orientation Not on file documented as of this encounter Plan of Treatment Not on file documented as of this encounter Visit Diagnoses Diagnosis 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
--- OUTSIDE RECORDS SUMMARY | 2025-05-27 16:01 | XMS_ITS | Encounter Summary ---
Author Organization [facility] Address [address] [place] [address] Care Team Providers Care Bus Driver School Name Role Phone Sai Blackburn MD Primary Care Provider Encounter Details Date Type Department Care Team (Latest Contact Info) Description 10/01/2001 Outpatient [facility] [address] [place] [address] Vale Pires MD [address] [place] [address] Routine medical exam (Primary Dx) Social History Tobacco Use Types Packs/Day Years Used Date Smoking Tobacco: Never Assessed Sex and Gender Information Value Date Recorded Sex Assigned at Not on file Legal Sex Male 6:03 AM PRICING DIRECTOR Gender Identity Not on file Sexual Orientation Not on file documented as of this encounter Plan of Treatment Not on file documented as of this encounter Visit Diagnoses Diagnosis Routine medical exam- Primary Routine general medical examination at a health care facility documented in this encounter Care Teams Bus Driver School Relationship Specialty Start Date End Date Sai Blackburn MD [address] [place] [phone] PCP - General Internal Medicine 06/24/19 01/17/20 documented as of this encounter
--- OUTSIDE RECORDS SUMMARY | 2025-05-27 16:01 | XMS_ITS | Encounter Summary ---
Author Organization [facility] Address [address] [place] [address] Care Team Providers Care Manager Business Information Name Role Phone Sai Blackburn MD Primary Care Provider Encounter Details Date Type Department Care Team (Latest Contact Info) Description 08/20/2003 Outpatient Historical [facility] Cardiology Ancillary Services-[place] [address] [place] [address] Kvng Moran MD NO ADDRESS ON FILE Sinoatrial node dysfunct (Primary Dx); CARDIAC PACEMAKER IN SITU Social History Tobacco Use Types Packs/Day Years Used Date Smoking Tobacco: Never Assessed Sex and Gender Information Value Date Recorded Sex Assigned at Not on file Legal Sex Male 6:03 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
--- OUTSIDE RECORDS SUMMARY | 2025-05-27 16:01 | XMS_ITS | Encounter Summary ---
Author Organization [facility] Address [address] [place] [address] Care Team Providers Care Cut Off Saw Operator Pipe Blanks Name Role Phone Sai Blackburn MD Primary Care Provider Encounter Details Date Type Department Care Team (Late st Contact Info) Description 10/28/2007 Outpatient [facility] [address] [place] [address] La Ramon MD NO ADDRESS ON FILE Social History Tobacco Use Types Packs/Day Years Used Date Smoking Tobacco: Never Assessed Sex and Gender Information Value Date Recorded Sex Assigned at Not on file Legal Sex Male 6:03 AM PAI GOW DEALER Gender Identity Not on file Sexual Orientation Not on file documented as of this encounter Progress Notes * La Ramon MD - 10/28/2007 12:00 AM CST Patient Name: Kale Harden DOS: 10/28/2007 : 1945 ALLERGIES: None 10/28/2007 MEDICATIONS: Coumadin 7.5/10 mg alternating daily in the evening Lisinopril 5 mg daily Flecainide 100 mg 1 ?? twice daily Zocor 20 mg daily Wellbutrin 100 mg four daily Viagra 50 mg as needed Atrovent nasal spray 0.03% 1-2 sprays bilateral, three times daily as needed Bentyl 20 mg four times daily as needed Ultram 50 mg three times daily as needed Ditropan 5 mg daily as needed BiPAP daily at bedtime CHRONIC PROBLEMS: Status post pacemaker for sick sinus syndrome/atrial fib/atrial flutter Depression Hyperlipidemia Ostearthritis Obstructive sleep apnea Irritable bowel syndrome Elevated blood pressure Multinodular goiter History of eosinophilic colitis History of tubular adenomatous colon polyp Past surgical history 1988 cholecystectomy/appendectomy. 1994 atrial fibrillation ablation, complicated by pulmonary embolus. 2001 coronary angiogram: Nonobstructive coronary disease. 2003 thyroid biopsy. 2007 unstable angina: coronary angiogram. COMPREHENSIVE EXAM He is a 61 year-old man here for a scheduled physical and review of ongoing medical problems. He reports that he has had low back pain in fits since he was 18 or 19 years old. He reports an MRI was done about 10 years ago. He has had a recent flare of low back pain. It does occur when he bends overor lifts heavy things. The pain is only in the low back without radiation. All of his prescriptionsare given through the [facility] [place]. ALLERGIES: None known. SIDE EFFECTS: Celexa. FAMILY HISTORY: First degree: Breast cancer, stroke time two, hypertension, heart attack, obesity, arrhythmia. Second degree: Stroke, throat cancer, heart attack, sudden . SOCIAL HISTORY: in 1965, he lives with his . He uses no tobacco but occasionally uses alcohol. 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 REVIEW OF SYSTEMS: See attached form. PHYSICAL EXAMINATION: VITAL SIGNS: Height 70 inches, weight 206 ?? pounds (208-217 for the last 5 years), blood pressure 110/70, pulse 80, respirations 18. GENERAL: Well-developed, well-nourished and in no acute distress. HEENT: Sclerae clear. Conjunctivae pink and moist. Tympanic membranes with good light reflex. Ear canals are without lesions. Nasal and oral mucosae are unremarkable. NECK: No masses, thyromegaly, or bruits. CHEST: Lungs clear. Heart: Regular rate and rhythm without murmur, gallop or rub. Left upper chest mass consistent with pacemaker. ABDOMEN: Soft. Normal bowel sounds. Nontender. No palpable masses or hepatosplenomegaly. EXTREMITIES: Pulses are +2. No cyanosis, clubbing, or edema. RECTAL: Normal tone. Nontender. No masses. The prostate is nontender. No masses. NEUROLOGIC: Nonfocal. SKIN: No suspicious lesions. ASSESSMENT AND PLAN: 1. Hyperlipidemia: LDL goal is 70 or less. Triglycerides 138, cholesterol 136, HDL 38, LDL 70. Continue current management. 2. Nontoxic goiter: TSH is normal and he is clinically euthyroid. 3. Elevated blood pressure: Currently normal. Continue to monitor. 4. atrial fibrillation: Currently asymptomatic and in normal sinus rhythm. Management is by his cardiologists, Drs. Navarro and Luisa. He has a pacemaker. 5. Health maintenance: PSA is normal. Colonoscopy was done in 2006. Tetanus was given as Tdap today. Pneumovax was given in 2004. Plan follow-up in one year plus as needed in the interim. La Ramon M.D., .A.C.P. Internal Medicine Electronically Signed by La Ramon M.D. 10/28/2007 17:42 , P, 700 Job #: Document #: [id number] cc: GOW DEALER documented in this encounter Plan of Treatment Not on file documented as of this encounter Visit Diagnoses Not on filedocumented in this encounter Care Teams Cut Off Saw Operator Pipe Blanks Relationship Specialty Start Date End Date Sai Blackburn MD [address] [place] [phone] PCP - General Internal Medicine 06/24/19 01/17/20 documented as of this encounter
--- OUTSIDE RECORDS SUMMARY | 2025-05-27 16:01 | XMS_ITS | Encounter Summary ---
Author Organization [facility] Address [address] [place] [address] Care Team Providers Care Work Study Student Name Role Phone Sai Blackburn MD Primary Care Provider Encounter Details Date Type Department Care Team (Latest Contact Info) Description 08/16/2003 Outpatient Historical [facility] End[facility]inology[facility] [address] [place] [address] Patricio Castellanos MD NO ADDRESS ON FILE NONTOX MULTINODUL GOITER (Primary Dx) Social History Tobacco Use Types Packs/Day Years Used Date Smoking Tobacco: Never Assessed Sex and Gender Information Value Date Recorded Sex Assigned at Not on file Legal Sex Male 6:03 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
--- OUTSIDE RECORDS SUMMARY | 2025-05-27 16:01 | XMS_ITS | Encounter Summary ---
Author Organization [facility] Address [address] [place] [address] Care Team Providers Care Automated Access Systems Technician Name Role Phone Sai Blackburn MD Primary Care Provider Encounter Details Date Type Department Care Team (Latest Contact Info) Description 08/20/[address] 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
--- OUTSIDE RECORDS SUMMARY | 2025-05-27 16:01 | XMS_ITS | Encounter Summary ---
Author Organization [facility] Address [address] [place] [address] Care Team Providers Care Teacher Resource Name Role Phone Sai Blackburn MD Primary Care Provider Encounter Details Date Type Department Care Team (Late st Contact Info) Description 08/13/2007 Outpatient Historical [facility] Orthopedics- [address] [place] [address] Patricio Cortez MD NO ADDRESS ON FILE Social History Tobacco Use Types Packs/Day Years Used Date Smoking Tobacco: Never Assessed Sex and Gender Information Value Date Recorded Sex Assigned at Not on file Legal Sex Male 6:03 AM WELDING SYSTEMS AND EQUIPMENT REPAIRER Gender Identity Not on file Sexual Orientation Not on file documented as of this encounter Plan of Treatment Not on file documented as of this encounter Visit Diagnoses Not on filedocumented in this encounter Care Teams Teacher Resource Relationship Specialty Start Date End Date Sai Blackburn MD [address] [place] [address] PCP - General Internal Medicine 06/24/19 01/17/20 documented as of this encounter
--- OUTSIDE RECORDS SUMMARY | 2025-05-27 16:01 | XMS_ITS | Encounter Summary ---
Author Organization [facility] Address [address] [place] [address] Care Team Providers Care Printing Equipment Mechanic Name Role Phone Sai Blackburn MD Primary Care Provider Encounter Details Date Type Department Care Team (Latest Contact Info) Description 10/20/2004 Outpatient Historical [facility] Imaging Services[facility] [place] [address] [place] [address] La Ramon MD NO ADDRESS ON FILE PAIN IN THORACIC SPINE (Primary Dx); Pain in limb Social History Tobacco Use Types Packs/Day Years Used Date Smoking Tobacco: Never Assessed Sex and Gender Information Value Date Recorded Sex Assigned at Not on file Legal Sex Male 6:03 AM INSIDE B2B SALES Gender Identity Not on file Sexual Orientation Not on file documented as of this encounter Plan of Treatment Not on file documented as of this encounter Visit Diagnoses Diagnosis Pain in thoracic spine- Primary Pain in limb Pain in soft tissues of limb documented in this encounter Care Teams Printing Equipment Mechanic Relationship Specialty Start Date End Date Sai Blackburn MD [address] [place] [address] PCP - General Internal Medicine 06/24/19 01/17/20 documented as of this encounter
--- OUTSIDE RECORDS SUMMARY | 2025-05-27 16:01 | XMS_ITS | Encounter Summary ---
Author Organization [facility] Address [address] [place] [address] Care Team Providers Care Assistance Specialist Name Role Phone Sai Blackburn MD Primary Care Provider [phone] Encounter Details Date Type Department Care Team (Latest Contact Info) Description 06/20/1998 Outpatient Historical [facility]rology- [place] [address] [facility] [address] [place] [phone] Marques Saenz Jr. [address], [address] [place] [address] Impotence of organic origin (Primary Dx) Social History Tobacco Use Types Packs/Day Years Used Date Smoking Tobacco: Never Assessed Sex and Gender Information Value Date Recorded Sex Assigned at Not on file Legal Sex Male 6:03 AM ABSORPTION AND ADSORPTION ENGINEER Gender Identity Not on file Sexual Orientation Not on file documented as of this encounter Plan of Treatment Not on file documented as of this encounter Visit Diagnoses Diagnosis Impotence of organic origin- Primary documented in this encounter Care Teams Assistance Specialist Relationship Specialty Start Date End Date Sai Blackburn MD [address] [place] [phone] PCP - General Internal Medicine 06/24/19 01/17/20 documented as of this encounter
--- OUTSIDE RECORDS SUMMARY | 2025-05-27 16:01 | XMS_ITS | Encounter Summary ---
Author Organization [facility] Address [address] [place] [address] Care Team Providers Care Automotive Lot Attendant Name Role Phone Sai Blackburn MD Primary Care Provider [phone] Encounter Details Date Type Department Care Team (Latest Contact Info) Description 08/18/2004 Outpatient Historical [facility] Cardiology Ancillary Services-[place] [address] [place] [address] Kvng Moran MD NO ADDRESS ON FILE Sinoatrial node dysfunct (Primary Dx); CARDIAC PACEMAKER IN SITU Social History Tobacco Use Types Packs/Day Years Used Date Smoking Tobacco: Never Assessed Sex and Gender Information Value Date Recorded Sex Assigned at Not on file Legal Sex Male 6: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
--- OUTSIDE RECORDS SUMMARY | 2025-05-27 16:01 | XMS_ITS | Encounter Summary ---
Author Organization [facility] Address [address] [place] [address] Care Team Providers Care Slurry Man Name Role Phone Sai Blackburn MD Primary Care Provider Encounter Details Date Type Department Care Team (Late st Contact Info) Description 10/07/2007 Outpatient Historical [facility] Cardiology Ancillary Services-[place] [address] [place] [address] Kvng Moran MD NO ADDRESS ON FILE Social History Tobacco Use Types Packs/Day Years Used Date Smoking Tobacco: Never Assessed Sex and Gender Information Value Date Recorded Sex Assigned at Not on file Legal Sex Male 6:03 AM SAFETY AND SECURITY OFFICER Gender Identity Not on file Sexual Orientation Not on file documented as of this encounter Plan of Treatment Not on file documented as of this encounter Procedures Procedure Name Priority Date/Time Associated Diagnosis Comments PSA MEDICARE SCREEN Routine 10/28/2007 1 0:30 AM SAFETY AND SECURITY OFFICER CBC WITH DIFFERENTIAL Routine 10/28/2007 10:30 AM SAFETY AND SECURITY OFFICER TSH Routine 10/28/2007 10:30 AM SAFETY AND SECURITY OFFICER LIPID PANEL Routine 10/28/2007 10:30 AM SAFETY AND SECURITY OFFICER COMPREHENSIVE METABOLIC PANEL Routine 10/28/2007 10:30 AM SAFETY AND SECURITY OFFICER documented in this encounter Results * TSH (10/28/2007 10:30 AM SAFETY AND SECURITY OFFICER) TSH 2.40 0.27 - 4.20 uIU/ML [facility] 10/28/2007 10:3 0 AM SAFETY AND SECURITY OFFICER 10/28/2007 10:35 AM SAFETY AND SECURITY OFFICER us La Ramon MD CHEMISTRY ORDERABLES Final Resu lt [facility] CLIA# [id number] [facility] [place] [address] * PSA MEDICARE SCREEN (10/28/2007 10:30 AM SAFETY AND SECURITY OFFICER) Pathologist [facility] [place] PSA 0.9 0.0 - 4.0 NG/ML [facility] 10/28/2007 10:3 0 AM SAFETY AND SECURITY OFFICER 10/28/2007 10:35 AM SAFETY AND SECURITY OFFICER La Ramon MD CHEMISTRY ORDERABLES COM Final Result [facility] CLIA# [id number] [address] [place] [address] * (ABNORMAL) LIPID PANEL (10/28/2007 10:30 AM SAFETY AND SECURITY OFFICER) Pathologist [facility] [place] CHOLESTEROL 136 100 - 200 MG/DL [facility] [facility] TRIGLYCERIDE 138 0 - 200 MG/DL [facility] [facility] HDL 38(L) 40 - 60 MG/DL [facility] [facility] LDL CALCULATED 70 58 - 100 MG/DL [facility] [facility] LDL CALCULATED CALCULATED LDL REFERENCE: < 100 Optimal 100 - 129 Near Optimal 130 - 159 Borderline High > 160 High Risk [facility] CHOL/HDL RATIO 3.58 3.43 - 4.97 RATIO [facility]ORY [facility] 10/28/2007 10:3 0 AM SAFETY AND SECURITY OFFICER 10/28/2007 10:35 AM SAFETY AND SECURITY OFFICER us La Ramon MD CHEMISTRY ORDERABLES Final Resu lt [facility] [place]# [id number] [address] [place] [address] * (ABNORMAL) COMPREHENSIVE METABOLIC PANEL (10/28/2007 10:30 AM SAFETY AND SECURITY OFFICER) GLUCOSE 75 70 - 100 MG/DL [facility] GLUCOSE Reference interval only valid for fasting specimens [facility] AUDIE BUN 16 6 - 20 MG/DL [facility] AUDIE CREATININE 1.2 0.5 - 1.2 MG/DL [facility] AUDIE SODIUM 144 134 - 145 MEQ/L [facility] AUDIE POTASSIUM 4.6 3.5 - 5.1 MEQ/L [facility] AUDIE CHLORIDE 106 96 - 108 MEQ/L [facility] [facility] CO2 30 22 - 32 MMOL/L [facility] H AUDIE CALCIUM 9.7 8.8 - 10.6 MG/DL [facility] H AUDIE TOTAL PROTEIN 6.8 5.9 - 8.2 G/DL [facility] ALBUMIN 4.6 3.4 - 4.8 G/DL [facility] [facility] AST 19 12 - 43 IU/L [facility] [facility] ALT 22 4 - 51 IU/L [facility] ALKALINE PHOSPHATASE 84 40 - 129 IU/L [facility] [facility] BILIRUBIN TOTAL 0.5 0.2 - 1.0 MG/DL [facility] [facility] ANION GAP 13 9 - 20 MEQ/L [facility] [facility] GLOBULIN (CALC) 2.2(L) 2.4 - 3.9 G/DL [facility] [facility] ALBUMIN/GLOBULI N RATIO 2.1 1.0 - 2.3 RATIO [facility] OSMOLALITY, CALCULATED 296(H) 275 - 295 MOSM/KG [facility] [facility] GFR >60 >60 mL/min/1. 73m [facility] [facility] GFR, >60 >60 mL/min/1. 73m [facility] [facility] 10/28/2007 10:3 0 AM SAFETY AND SECURITY OFFICER 10/28/2007 10:35 AM SAFETY AND SECURITY OFFICER us La Ramon MD CHEMISTRY ORDERABLES Final Resu lt [facility] CLIA# [id number] [address] [place] [address] * (ABNORMAL) CBC WITH DIFFERENTIAL (10/28/2007 10:30 AM SAFETY AND SECURITY OFFICER) WBC 5.9 4.8 - 10.8 K/UL [facility] RBC 4.94 4.6 - 6.2 M/UL [facility] HEMOGLOBIN 16.0 14.0 - 18.0 G/DL [facility] HEMATOCRIT 47.8 41 - 53 % [facility] MCV 96.8 82 - 100 FL [facility] MCH 32.4 27 - 34 PG [facility] MCHC 33.5 31 - 37 G/DL [facility] RDW 12.9 11 - 14.5 % [facility] PLATELETS 145 140 - 440 K/UL [facility] MPV 11.3 8.9 - 12.8 FL [facility] NEUTROPHILS 66.2 42.2 - 75.2 % [facility] LYMPHOCYTES 20.9(L) 24 - 44 % [facility] MONOCYTES 9.0 2 - 10 % [facility] EOSINOPHILS 3.2 0 - 7 % [facility] BASOPHILS 0.7 0 - 1 % [facility] NEUTROPHIL ABSOLUTE 3.9 1.4 - 6.5 K/uL [facility] LYMPHOCYTE ABSOLUTE 1.2 1.2 - 4.0 K/UL [facility] MONOCYTE ABSOLUTE 0.5 0.1 - 0.6 K/UL [facility] EOSINOPHIL ABSOLUTE 0.2 0 - 0.7 K/UL [facility] BASOPHILS ABSOLUTE 0.0 0 - 0.2 K/UL [facility] 10/28/2007 10:3 0 AM SAFETY AND SECURITY OFFICER 10/28/2007 10:35 AM SAFETY AND SECURITY OFFICER us La Ramon MD HEMATOLOGY ORDERABLES Final Res ult [facility] CLIA# [id number] [facility] [place] [address] documented in this encounter Visit Diagnoses Not on filedocumented in this encounter Care Teams Slurry Man Relationship Specialty Start Date End Date Sai Blackburn MD [address] [place] [phone] PCP - General Internal Medicine 06/24/19 01/17/20 documented as of this encounter
--- OUTSIDE RECORDS SUMMARY | 2025-05-27 16:01 | XMS_ITS | Encounter Summary ---
Author Organization [facility] Address [address] [place] [address] Care Team Providers Care Program Mgr Name Role Phone Sai Blackburn MD Primary Care Provider [phone] Encounter Details Date Type Department Care Team (Latest Contact Info) Description 02/18/2004 Outpatient Historical [facility] Cardiology Ancillary Services-[place] [address] [place] [address] Kvng Moran MD NO ADDRESS ON FILE Sinoatrial node dysfunct (Primary Dx); CARDIAC PACEMAKER IN SITU Social History Tobacco Use Types Packs/Day Years Used Date Smoking Tobacco: Never Assessed Sex and Gender Information Value Date Recorded Sex Assigned at Not on file Legal Sex Male 6:03 AM PHYSICAL THERAPY SUPERVISOR Gender Identity Not on file Sexual Orientation Not on file documented as of this encounter Plan of Treatment Not on file documented as of this encounter Visit Diagnoses Diagnosis Sinoatrial node dysfunct- Primary Sinoatrial node dysfunction Cardiac pacemaker in situ documented in this encounter Care Teams Program Mgr Relationship Specialty Start Date End Date Sai Blackburn MD [address] [place] [address] PCP - General Internal Medicine 06/24/19 01/17/20 documented as of this encounter
--- OUTSIDE RECORDS SUMMARY | 2025-05-27 16:01 | XMS_ITS | Encounter Summary ---
Author Organization [facility] Address [address] [place] [address] Care Team Providers Care Local Area Network Administrator Name Role Phone Sai Blackburn MD Primary Care Provider Encounter Details Date Type Department Care Team (Late st Contact Info) Description 09/06/1998 Outpatient Historical [facility] Imaging Services[facility] [place] [address] [place] [address] Rolando Mark MD [address] [place] [address] Nonspecific (abnormal) findings on radiological and other examination of lung field (Primary Dx) Social History Tobacco Use Types Packs/Day Years Used Date Smoking Tobacco: Never Assessed Sex and Gender Information Value Date Recorded Sex Assigned at Not on file Legal Sex Male 6:03 AM GEOSPATIAL APPLICATIONS DEVELOPER Gender Identity Not on file Sexual Orientation Not on file documented as of this encounter Plan of Treatment Not on file documented as of this encounter Visit Diagnoses Diagnosis Nonspecific (abnormal) findings on radiological and other examination of lung field- Primary documented in this encounter Care Teams Local Area Network Administrator Relationship Specialty Start Date End Date Sai Blackburn MD [address] [place] [phone] PCP - General Internal Medicine 06/24/19 01/17/20 documented as of this encounter
--- OUTSIDE RECORDS SUMMARY | 2025-05-27 16:01 | XMS_ITS | Encounter Summary ---
Author Organization [facility] Address [address] [place] [address] Care Team Providers Care Access Rn Name Role Phone Sai Blackburn MD Primary Care Provider Encounter Details Date Type Department Care Team (Latest Contact Info) Description 05/12/2002 Outpatient Historical [facility] Cardiology Ancillary Services-[place] [address] [place] [address] Kvng Moran MD NO ADDRESS ON FILE Sinoatrial node dysfunct (Primary Dx); CARDIAC PACEMAKER IN SITU Social History Tobacco Use Types Packs/Day Years Used Date Smoking Tobacco: Never Assessed Sex and Gender Information Value Date Recorded Sex Assigned at Not on file Legal Sex Male 6:03 AM SNACK BAR COOK Gender Identity Not on file Sexual Orientation Not on file documented as of this encounter Plan of Treatment Not on file documented as of this encounter Visit Diagnoses Diagnosis Sinoatrial node dysfunct- Primary Sinoatrial node dysfunction Cardiac pacemaker in situ documented in this encounter Care Teams Access Rn Relationship Specialty Start Date End Date Sai Blackburn MD [address] [place] [phone] PCP - General Internal Medicine 06/24/19 01/17/20 documented as of this encounter
--- OUTSIDE RECORDS SUMMARY | 2025-05-27 16:01 | XMS_ITS | Encounter Summary ---
Author Organization [facility] Address [address] [place] [address] Care Team Providers Care Network Control Operators Supervisor Name Role Phone Sai Blackburn MD Primary Care Provider Encounter Details Date Type Department Care Team (Latest Contact Info) Description 03/11/2002 Outpatient [facility] [address] [place] [address] La Ramon MD NO ADDRESS ON FILE ATRIAL FIBRILLATION (CMS/HCC) (Primary Dx) Social History Tobacco Use Types Packs/Day Years Used Date Smoking Tobacco: Never Assessed Sex and Gender Information Value Date Recorded Sex Assigned at Not on file Legal Sex Male 6:03 AM GUARD IMMIGRATION Gender Identity Not on file Sexual Orientation Not on file documented as of this encounter Plan of Treatment Not on file documented as of this encounter Visit Diagnoses Diagnosis Atrial fibrillation (CMS/HCC)- Primary Atrial fibrillation documented in this encounter Care Teams Network Control Operators Supervisor Relationship Specialty Start Date End Date Sai Blackburn MD [address] [place] [address] PCP - General Internal Medicine 06/24/19 01/17/20 documented as of this encounter
--- OUTSIDE RECORDS SUMMARY | 2025-05-27 16:01 | XMS_ITS | Encounter Summary ---
Author Organization [facility] Address [address] [place] [address] Care Team Providers Care Burr Bench Operator Name Role Phone Sai Blackburn MD Primary Care Provider [phone] Encounter Details Date Type Department Care Team (Latest Contact Info) Description 10/06/1997 Outpatient [facility] [address] [place] [address] Vale Pires MD [address] [place] [address] Atrial fibrillation (CMS/HCC) (Primary Dx) Social History Tobacco Use Types Packs/Day Years Used Date Smoking Tobacco: Never Assessed Sex and Gender Information Value Date Recorded Sex Assigned at Not on file Legal Sex Male 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
--- OUTSIDE RECORDS SUMMARY | 2025-05-27 16:01 | XMS_ITS | Encounter Summary ---
Author Organization [facility] Address [address] [place] [address] Care Team Providers Care Teradata Solution Architect Name Role Phone Sai Blackburn MD Primary Care Provider [phone] Encounter Details Date Type Department Care Team (Latest Contact Info) Description 11/12/2003 Outpatient Historical [facility] Imaging Services[facility] [place] [address] [place] [address] Kvng Moran MD NO ADDRESS ON FILE OTHER SYMPTOMS NERV/MUSC-SKEL SYSTM (Primary Dx) Social History Tobacco Use Types Packs/Day Years Used Date Smoking Tobacco: Never Assessed Sex and Gender Information Value Date Recorded Sex Assigned at Not on file Legal Sex Male 6:03 AM LATEX SPOOLER Gender Identity Not on file Sexual Orientation Not on file documented as of this encounter Plan of Treatment Not on file documented as of this encounter Visit Diagnoses Diagnosis Other symptoms involving nervous and musculoskeletal systems(781.99)- Primary Other symptoms involving nervous and musculoskeletal systems documented in this encounter Care Teams Teradata Solution Architect Relationship Specialty Start Date End Date Sai Blackburn MD [address] [facility] [place] [phone] PCP - General Internal Medicine 06/24/19 01/17/20 documented as of this encounter
--- OUTSIDE RECORDS SUMMARY | 2025-05-27 16:01 | XMS_ITS | Encounter Summary ---
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
--- OUTSIDE RECORDS SUMMARY | 2025-05-27 16:01 | XMS_ITS | Encounter Summary ---
Author Organization [facility] Address [address] [place] [address] Care Team Providers Care Drill Press Operator For Metal Name Role Phone Sai Blackburn MD Primary Care Provider Encounter Details Date Type Department Care Team (Latest Contact Info) Description 07/21/2001 Outpatient Historical [facility] Marques Rodriguez Jr., MD [address] [place] [address] ABN BLOOD CHEMISTRY NEC (Primary Dx); AFTERCARE COMPUTERIZED TABLE CUTTER ANTICOAG USE; PULM EMBOLISM/INFARCT NOS (CMS/HCC) Social History Tobacco Use Types Packs/Day Years Used Date Smoking Tobacco: Never Assessed Sex and Gender Information Value Date Recorded Sex Assigned at Not on file Legal Sex Male 6:03 AM TRIM MOUNTER Gender Identity Not on file Sexual Orientation Not on file documented as of this encounter Plan of Treatment Not on file documented as of this encounter Visit Diagnoses Diagnosis Other abnormal blood chemistry- Primary correction (current) use of anticoagulants Long-term (current) use of anticoagulants Other pulmonary embolism and infarction (CMS/HCC) Other pulmonary embolism and infarction documented in this encounter Care Teams Drill Press Operator For Metal Relationship Specialty Start Date End Date Sai Blackburn MD [address] [place] [address] PCP - General Internal Medicine 06/24/19 01/17/20 documented as of this encounter
--- OUTSIDE RECORDS SUMMARY | 2025-05-27 16:01 | XMS_ITS | Encounter Summary ---
Author Organization [facility] Address [address] [place] [address] Care Team Providers Care Bookkeeping Manager Name Role Phone Sai Blackburn MD Primary Care Provider Encounter Details Date Type Department Care Team (Latest Contact Info) Description 12/27/2003 Outpatient Historical [facility] Endocrinology-[facility] [place] [address] [place] [address] Patricio Castellanos MD NO ADDRESS ON FILE NONTOX MULTINODUL GOITER (Primary Dx) Social History Tobacco Use Types Packs/Day Years Used Date Smoking Tobacco: Never Assessed Sex and Gender Information Value Date Recorded Sex Assigned at Not on file 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
--- OUTSIDE RECORDS SUMMARY | 2025-05-27 16:01 | XMS_ITS | Encounter Summary ---
Author Organization [facility] Address [address] [place] [address] Care Team Providers Care Career Information Specialist Name Role Phone Sai Blackburn MD Primary Care Provider Encounter Details Date Type Department Care Team (Latest Contact Info) Description 01/01/2005 Outpatient Historical [facility] Endocrinology-[facility] [place] [address] [place] [address] Patricio Castellanos MD NO ADDRESS ON FILE NONTOX MULTINODUL GOITER (Primary Dx) Social History Tobacco Use Types Packs/Day Years Used Date Smoking Tobacco: Never Assessed Sex and Gender Information Value Date Recorded Sex Assigned at Not on file Legal Sex Male 6: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
--- OUTSIDE RECORDS SUMMARY | 2025-05-27 16:01 | XMS_ITS | Encounter Summary ---
Author Organization [facility] Address [address] [place] [address] Care Team Providers Care Roller Coaster Operator Name Role Phone Sai Blackburn MD Primary Care Provider [phone] Encounter Details Date Type Department Care Team (Latest Contact Info) Description 10/03/2004 Outpatient Historical [facility] Cardiology Ancillary Services-[place] [address] [place] [address] Kvng Moran MD NO ADDRESS ON FILE Sinoatrial node dysfunct (Primary Dx); CARDIAC PACEMAKER IN SITU Social History Tobacco Use Types Packs/Day Years Used Date Smoking Tobacco: Never Assessed Sex and Gender Information Value Date Recorded Sex Assigned at Not on file Legal Sex Male 6:03 AM BAR HELPER Gender Identity Not on file Sexual Orientation Not on file documented as of this encounter Plan of Treatment Not on file documented as of this encounter Visit Diagnoses Diagnosis Sinoatrial node dysfunct- Primary Sinoatrial node dysfunction Cardiac pacemaker in situ documented in this encounter Care Teams Roller Coaster Operator Relationship Specialty Start Date End Date Sai Blackburn MD [address] [place] [address] PCP - General Internal Medicine 06/24/19 01/17/20 documented as of this encounter
--- OUTSIDE RECORDS SUMMARY | 2025-05-27 16:01 | XMS_ITS | Encounter Summary ---
Author Organization [facility] Address [address] [place] [address] Care Team Providers Care Mixer Attendant Name Role Phone Sai Blackburn MD Primary Care Provider [phone] Encounter Details Date Type Department Care Team (Latest Contact Info) Description 09/20/2003 Outpatient Historical [facility] Cardiology Ancillary Services-[place] [address] [place] [address] Kvng Moran MD NO ADDRESS ON FILE Sinoatrial node dysfunct (Primary Dx); CARDIAC PACEMAKER IN SITU Social History Tobacco Use Types Packs/Day Years Used Date Smoking Tobacco: Never Assessed Sex and Gender Information Value Date Recorded Sex Assigned at Not on file Legal Sex Male 6:03 AM ERP PROJECT MANAGER Gender Identity Not on file Sexual Orientation Not on file documented as of this encounter Plan of Treatment Not on file documented as of this encounter Visit Diagnoses Diagnosis Sinoatrial node dysfunct- Primary Sinoatrial node dysfunction Cardiac pacemaker in situ documented in this encounter Care Teams Mixer Attendant Relationship Specialty Start Date End Date Sai Blackburn MD [address] [place] [phone] PCP - General Internal Medicine 06/24/19 01/17/20 documented as of this encounter
--- OUTSIDE RECORDS SUMMARY | 2025-05-27 16:01 | XMS_ITS | Encounter Summary ---
Author Organization [facility] Address [address] [place] [address] Care Team Providers Care Foam Dispenser Name Role Phone Sai Blackburn MD Primary Care Provider Encounter Details Date Type Department Care Team (Latest Contact Info) Description 06/13/1998 Outpatient [facility] [place] [place] [address] Vale Pires MD [address] [place] [address] Abdominal pain, unspecified site (Primary Dx) Social History Tobacco Use Types Packs/Day Years Used Date Smoking Tobacco: Never Assessed Sex and Gender Information Value Date Recorded Sex Assigned at Not on file Legal Sex Male 6:03 AM VOLTAGE TESTER Gender Identity Not on file Sexual Orientation Not on file documented as of this encounter Plan of Treatment Not on file documented as of this encounter Visit Diagnoses Diagnosis Abdominal pain, unspecified site- Primary documented in this encounter Care Teams Foam Dispenser Relationship Specialty Start Date End Date Sai Blackburn MD [address] [place] [address] PCP - General Internal Medicine 06/24/19 01/17/20 documented as of this encounter
--- OUTSIDE RECORDS SUMMARY | 2025-05-27 16:01 | XMS_ITS | Encounter Summary ---
Author Organization [facility] Address [address] [place] [address] Care Team Providers Care Insulation Cupola Operator Name Role Phone Sai Blackburn MD Primary Care Provider Encounter Details Date Type Department Care Team (Latest Contact Info) Description 09/21/1997 Outpatient Historical [facility] Cardiology- [place] [address] [place] [address] Kvng Moran MD NO ADDRESS ON FILE Sinoatrial node dysfunct (Primary Dx); Fitting and adjustment of cardiac pacemaker; Atrial fibrillation (CMS/HCC) Social History Tobacco Use Types Packs/Day Years Used Date Smoking Tobacco: Never Assessed Sex and Gender Information Value Date Recorded Sex Assigned at Not on file Legal Sex Male 6: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
--- OUTSIDE RECORDS SUMMARY | 2025-05-27 16:01 | XMS_ITS | Encounter Summary ---
Author Organization [facility] Address [address] [place] [address] Care Team Providers Care Control Board Operator Name Role Phone Sai Blackburn MD Primary Care Provider Encounter Details Date Type Department Care Team (Latest Contact Info) Description 12/14/2004 Outpatient Historical [facility] Cardiology Ancillary Services-[place] [address] [place] [address] Kvng Moran MD NO ADDRESS ON FILE ATRIAL FIBRILLATION (CMS/HCC) (Primary Dx); CARDIAC PACEMAKER IN SITU Social History Tobacco Use Types Packs/Day Years Used Date Smoking Tobacco: Never Assessed Sex and Gender Information Value Date Recorded Sex Assigned at Not on file Legal Sex Male 6:03 AM SOFTWARE RELEASE MANAGER Gender Identity Not on file Sexual Orientation Not on file documented as of this encounter Plan of Treatment Not on file documented as of this encounter Visit Diagnoses Diagnosis Atrial fibrillation (CMS/HCC)- Primary Atrial fibrillation Cardiac pacemaker in situ documented in this encounter Care Teams Control Board Operator Relationship Specialty Start Date End Date Sai Blackburn MD [address] [facility] [place] [address] PCP - General Internal Medicine 06/24/19 01/17/20 documented as of this encounter
--- OUTSIDE RECORDS SUMMARY | 2025-05-27 16:01 | XMS_ITS | Encounter Summary ---
Author Organization [facility] Address [address] [place] [address] Care Team Providers Care Mill Supervisor Name Role Phone Sai Blackburn MD Primary Care Provider Encounter Details Date Type Department Care Team (Latest Contact Info) Description 06/25/2002 Outpatient Historical [facility] Cardiology- [place] [address] [place] [address] Kvng Moran MD NO ADDRESS ON FILE ATRIAL FIBRILLATION (CMS/HCC) (Primary Dx) Social History Tobacco Use Types Packs/Day Years Used Date Smoking Tobacco: Never Assessed Sex and Gender Information Value Date Recorded Sex Assigned at Not on file 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
--- OUTSIDE RECORDS SUMMARY | 2025-05-27 16:01 | XMS_ITS | Encounter Summary ---
Author Organization [facility] Address [address] [place] [address] Care Team Providers Care House Servant Name Role Phone Sai Blackburn MD Primary Care Provider Encounter Details Date Type Department Care Team (Latest Contact Info) Description 10/20/1998 Outpatient Historical [facility] Cardiology- [place] [address] [place] [address] Kvng Moran MD NO ADDRESS ON FILE Sinoatrial node dysfunct (Primary Dx); Fitting and adjustment of cardiac pacemaker; Atrial fibrillation (CMS/HCC) Social History Tobacco Use Types Packs/Day Years Used Date Smoking Tobacco: Never Assessed Sex and Gender Information Value Date Recorded Sex Assigned at Not on file Legal Sex Male 6:03 AM CLINICAL INFORMATICS PHYSICIAN Gender Identity Not on file Sexual Orientation Not on file documented as of this encounter Plan of Treatment Not on file documented as of this encounter Visit Diagnoses Diagnosis Sinoatrial node dysfunct- Primary Sinoatrial node dysfunction Fitting and adjustment of cardiac pacemaker Atrial fibrillation (CMS/HCC) Atrial fibrillation documented in this encounter Care Teams House Servant Relationship Specialty Start Date End Date Sai Blackburn MD [address] [place] [address] PCP - General Internal Medicine 06/24/19 01/17/20 documented as of this encounter
--- OUTSIDE RECORDS SUMMARY | 2025-05-27 16:01 | XMS_ITS | Encounter Summary ---
Author Organization [facility] Address [address] [place] [address] Care Team Providers Care Manager Quantitative Name Role Phone Sai Blackburn MD Primary Care Provider Encounter Details Date Type Department Care Team (Latest Contact Info) Description 07/14/2004 Outpatient Historical [facility] Cardiology Ancillary Services-[place] [address] [place] [address] Kvng Moran MD NO ADDRESS ON FILE Sinoatrial node dysfunct (Primary Dx); CARDIAC PACEMAKER IN SITU Social History Tobacco Use Types Packs/Day Years Used Date Smoking Tobacco: Never Assessed Sex and Gender Information Value Date Recorded Sex Assigned at Not on file Legal Sex Male 6:03 AM LINOTYPIST Gender Identity Not on file Sexual Orientation Not on file documented as of this encounter Plan of Treatment Not on file documented as of this encounter Visit Diagnoses Diagnosis Sinoatrial node dysfunct- Primary Sinoatrial node dysfunction Cardiac pacemaker in situ documented in this encounter Care Teams Manager Quantitative Relationship Specialty Start Date End Date Sai Blackburn MD [address] [place] [address] PCP - General Internal Medicine 06/24/19 01/17/20 documented as of this encounter
--- OUTSIDE RECORDS SUMMARY | 2025-05-27 16:01 | XMS_ITS | Encounter Summary ---
Author Organization [facility] Address [address] [place] [address] Care Team Providers Care Property Site Manager Name Role Phone Sai Blackburn MD Primary Care Provider [phone] Encounter Details Date Type Department Care Team (Latest Contact Info) Description 10/28/2003 Outpatient Historical [facility] Cardiology- [place] [address] [place] [address] Kvng Moran MD NO ADDRESS ON FILE Sinoatrial node dysfunct (Primary Dx); CARDIAC PACEMAKER IN SITU Social History Tobacco Use Types Packs/Day Years Used Date Smoking Tobacco: Never Assessed Sex and Gender Information Value Date Recorded Sex Assigned at Not on file Legal Sex Male 6:03 AM DATA ANALYSIS MANAGER Gender Identity Not on file Sexual Orientation Not on file documented as of this encounter Plan of Treatment Not on file documented as of this encounter Visit Diagnoses Diagnosis Sinoatrial node dysfunct- Primary Sinoatrial node dysfunction Cardiac pacemaker in situ documented in this encounter Care Teams Property Site Manager Relationship Specialty Start Date End Date Sai Blackburn MD [address] [place] [address] PCP - General Internal Medicine 06/24/19 01/17/20 documented as of this encounter
--- OUTSIDE RECORDS SUMMARY | 2025-05-27 16:01 | XMS_ITS | Encounter Summary ---
Author Organization [facility] Address [address] [place] [address] Care Team Providers Care De Icer Installer Name Role Phone Sai Blackburn MD Primary Care Provider Encounter Details Date Type Department Care Team (Latest Contact Info) Description 01/19/2005 Outpatient [facility] [address] [place] [address] La Ramon MD NO ADDRESS ON FILE OSTEOARTHROS NOS-OTHER SITE (Primary Dx) Social History Tobacco Use Types Packs/Day Years Used Date Smoking Tobacco: Never Assessed Sex and Gender Information Value Date Recorded Sex Assigned at Not on file Legal Sex Male 6:03 AM WORM SORTER Gender Identity Not on file Sexual Orientation Not on file documented as of this encounter Plan of Treatment Not on file documented as of this encounter Visit Diagnoses Diagnosis Osteoarthrosis, unspecified whether generalized or localized, other specified sites- Primary documented in this encounter Care Teams De Icer Installer Relationship Specialty Start Date End Date Sai Blackburn MD [address] [facility] [place] [address] PCP - General Internal Medicine 06/24/19 01/17/20 documented as of this encounter
--- OUTSIDE RECORDS SUMMARY | 2025-05-27 16:01 | XMS_ITS | Encounter Summary ---
Author Organization [facility] Address [address] [place] [address] Care Team Providers Care Wet Milling Wheel Operator Name Role Phone Sai Blackburn MD Primary Care Provider Encounter Details Date Type Department Care Team (Latest Contact Info) Description 03/24/2004 Outpatient Historical [facility] Cardiology Ancillary Services-[place] [address] [place] [address] Kvng Moran MD NO ADDRESS ON FILE Sinoatrial node dysfunct (Primary Dx); CARDIAC PACEMAKER IN SITU Social History Tobacco Use Types Packs/Day Years Used Date Smoking Tobacco: Never Assessed Sex and Gender Information Value Date Recorded Sex Assigned at Not on file Legal Sex Male 6:03 AM BRIDGES SUPERVISOR Gender Identity Not on file Sexual Orientation Not on file documented as of this encounter Plan of Treatment Not on file documented as of this encounter Visit Diagnoses Diagnosis Sinoatrial node dysfunct- Primary Sinoatrial node dysfunction Cardiac pacemaker in situ documented in this encounter Care Teams Wet Milling Wheel Operator Relationship Specialty Start Date End Date Sai Blackburn MD [address] [place] [address] PCP - General Internal Medicine 06/24/19 01/17/20 documented as of this encounter
--- OUTSIDE RECORDS SUMMARY | 2025-05-27 16:01 | XMS_ITS | Encounter Summary ---
Author Organization [facility] Address [address] [place] [address] Care Team Providers Care Stucco Laborer Name Role Phone Sai Blackburn MD Primary Care Provider Encounter Details Date Type Department Care Team (Latest Contact Info) Description 09/06/1998 Outpatient [facility] [place] [address] Vale Pires MD [address] [place] [address] Atrial fibrillation (CMS/HCC) (Primary Dx); Malaise and fatigue; Need for prophylactic vaccination and inoculation against other combinations of diseases Social History Tobacco Use Types Packs/Day Years Used Date Smoking Tobacco: Never Assessed Sex and Gender Information Value Date Recorded Sex Assigned at Not on file Legal Sex Male 6:03 AM MANAGER SHIPPING Gender Identity Not on file Sexual Orientation Not on file documented as of this encounter Plan of Treatment Not on file documented as of this encounter Visit Diagnoses Diagnosis Atrial fibrillation (CMS/HCC)- Primary Atrial fibrillation Malaise and fatigue Need for prophylactic vaccination and inoculation against other combinations of diseases documented in this encounter Care Teams Stucco Laborer Relationship Specialty Start Date End Date Sai Blackburn MD [address] [place] [address] PCP - General Internal Medicine 06/24/19 01/17/20 documented as of this encounter
--- OUTSIDE RECORDS SUMMARY | 2025-05-27 16:01 | XMS_ITS | Encounter Summary ---
Author Organization [facility] Address [address] 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
--- OUTSIDE RECORDS SUMMARY | 2025-05-27 16:01 | XMS_ITS | Encounter Summary ---
Author Organization [facility] Address [address] [place] [address] Care Team Providers Care Bus Dispatcher Interstate Name Role Phone Sai Blackburn MD Primary Care Provider Encounter Details Date Type Department Care Team (Latest Contact Info) Description 06/29/2004 Outpatient Historical [facility] Endocrinology-[place] [address] [place] [address] Patricio Castellanos MD NO ADDRESS ON FILE HYPOTHYROIDISM NOS (Primary Dx) Social History Tobacco Use Types Packs/Day Years Used Date Smoking Tobacco: Never Assessed Sex and Gender Information Value Date Recorded Sex Assigned at Not on file 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
--- OUTSIDE RECORDS SUMMARY | 2025-05-27 16:01 | XMS_ITS | Encounter Summary ---
Author Organization [facility] Address [address] [place] [address] Care Team Providers Care Parcel Carrier Name Role Phone Sai Blackburn MD Primary Care Provider Encounter Details Date Type Department Care Team (Latest Contact Info) Description 12/25/2001 Outpatient Historical [facility] Cardiology- [place] [address] [place] [address] Kvng Moran MD NO ADDRESS ON FILE ATRIAL FIBRILLATION (CMS/HCC) (Primary Dx) Social History Tobacco Use Types Packs/Day Years Used Date Smoking Tobacco: Never Assessed Sex and Gender Information Value Date Recorded Sex Assigned at Not on file 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
--- OUTSIDE RECORDS SUMMARY | 2025-05-27 16:01 | XMS_ITS | Encounter Summary ---
Author Organization [facility] Address [address] [place] [address] Care Team Providers Care Clinical Education Assistant Name Role Phone Sai Blackburn MD Primary Care Provider [phone] Encounter Details Date Type Department Care Team (Latest Contact Info) Description 08/03/1998 Outpatient Historical [facility] Marques Rodriguez Jr., MD [address] [place] [address] longterm (current) use of anticoagulants (Primary Dx) Social History Tobacco Use Types Packs/Day Years Used Date Smoking Tobacco: Never Assessed Sex and Gender Information Value Date Recorded Sex Assigned at Not on file 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
--- OUTSIDE RECORDS SUMMARY | 2025-05-27 16:01 | XMS_ITS | Encounter Summary ---
Author Organization [facility] Address [address] [place] [address] Care Team Providers Care Business Operations Coordinator Name Role Phone Sai Blackburn MD Primary Care Provider Encounter Details Date Type Department Care Team (Latest Contact Info) Description 12/20/2003 Outpatient Historical [facility] Imaging Services-[place] [address] [place] [address] Patricio Castellanos MD NO ADDRESS ON FILE NONTOX UNINODULAR GOITER (Primary Dx) Social History Tobacco Use Types Packs/Day Years Used Date Smoking Tobacco: Never Assessed Sex and Gender Information Value Date Recorded Sex Assigned at Not on file 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
--- OUTSIDE RECORDS SUMMARY | 2025-05-27 16:01 | XMS_ITS | Encounter Summary ---
Author Organization [facility] Address [address] [place] [address] Care Team Providers Care Emergency Medicine Physician Name Role Phone Sai Blackburn MD Primary Care Provider Encounter Details Date Type Department Care Team (Latest Contact Info) Description 12/20/2003 Outpatient Historical [facility] [place] [address] [place] [address] Patricio Castellanos MD NO ADDRESS ON FILE NONTOX MULTINODUL GOITER (Primary Dx) Social History Tobacco Use Types Packs/Day Years Used Date Smoking Tobacco: Never Assessed Sex and Gender Information Value Date Recorded Sex Assigned at Not on file Legal Sex Male 6: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
--- OUTSIDE RECORDS SUMMARY | 2025-05-27 16:02 | XMS_ITS | Encounter Summary ---
Author Organization [facility] Address [address] [place] [address] Care Team Providers Care Drafter Refrigeration Name Role Phone Sai Blackburn MD Primary Care Provider Encounter Details Date Type Department Care Team (Latest Contact Info) Description 07/04/2005 Outpatient Historical [facility] Cardiology- [place] [address] [place] [address] Kvng Moran MD NO ADDRESS ON FILE ATRIAL FIBRILLATION (CMS/HCC) (Primary Dx); PRECORDIAL PAIN Social History Tobacco Use Types Packs/Day Years Used Date Smoking Tobacco: Never Assessed Sex and Gender Information Value Date Recorded Sex Assigned at Not on file 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
--- OUTSIDE RECORDS SUMMARY | 2025-05-27 16:02 | XMS_ITS | Encounter Summary ---
Author Organization [facility] Address [address] [place] [address] Care Team Providers Care Delivery Driver Name Role Phone Sai Blackburn MD Primary Care Provider [phone] Encounter Details Date Type Department Care Team (Latest Contact Info) Description 06/19/2000 Outpatient Historical [facility] Cardiology- [place] [address] [place] [phone] Kvng Moran MD NO ADDRESS ON FILE Sinoatrial node dysfunct (Primary Dx); Cardiac pacemaker in situ Social History Tobacco Use Types Packs/Day Years Used Date Smoking Tobacco: Never Assessed Sex and Gender Information Value Date Recorded Sex Assigned at Not on file 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
--- OUTSIDE RECORDS SUMMARY | 2025-05-27 16:02 | XMS_ITS | Encounter Summary ---
Author Organization [facility] Address [address] [place] [address] Care Team Providers Care Biomedical Electronics Technician Name Role Phone Sai Blackburn MD Primary Care Provider Encounter Details Date Type Department Care Team (Latest Contact Info) Description 12/20/2006 Outpatient Historical [facility] Cardiology Ancillary Services-[place] [address] [place] [address] Kvng Moran MD NO ADDRESS ON FILE Sinoatrial Node Dysfunct (Primary Dx); Cardiac Pacemaker in Situ Social History Tobacco Use Types Packs/Day Years Used Date Smoking Tobacco: Never Assessed Sex and Gender Information Value Date Recorded Sex Assigned at Not on file Legal Sex Male 6:[address] Gender Identity Not on file Sexual Orientation Not on file documented as of this encounter Plan of Treatment Not on file documented as of this encounter Visit Diagnoses Diagnosis Sinoatrial node dysfunct- Primary Sinoatrial node dysfunction Cardiac pacemaker in situ documented in this encounter Care Teams Biomedical Electronics Technician Relationship Specialty Start Date End Date Sai Blackburn MD [address] [place] [phone] PCP - General Internal Medicine 06/24/19 01/17/20 documented as of this encounter
--- OUTSIDE RECORDS SUMMARY | 2025-05-27 16:02 | XMS_ITS | Encounter Summary ---
Author Organization [facility] Address [address] [place] [address] Care Team Providers Care Fire Protection Inspector Name Role Phone Sai Blackburn MD Primary Care Provider Encounter Details Date Type Department Care Team (Latest Contact Info) Description 06/11/2000 Outpatient Historical [facility] Marques Rodriguez Jr., MD [address] [place] [phone] Screening for malignant neoplasm of the rectum (Primary Dx); Atrial fibrillation (CMS/HCC) Social History Tobacco Use Types Packs/Day Years Used Date Smoking Tobacco: Never Assessed Sex and Gender Information Value Date Recorded Sex Assigned at Not on file Legal Sex Male 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
--- OUTSIDE RECORDS SUMMARY | 2025-05-27 16:02 | XMS_ITS | Encounter Summary ---
Author Organization [facility] Address [address] [place] [address] Care Team Providers Care Caretaker Name Role Phone Sai Blackburn MD Primary Care Provider Encounter Details Date Type Department Care Team (Latest Contact Info) Description 03/28/2007 Outpatient Historical [facility] Cardiology Ancillary Services-[place] [address] [place] [address] Kvng Moran MD NO ADDRESS ON FILE Sinoatrial Node Dysfunct (Primary Dx); Cardiac Pacemaker in Situ Social History Tobacco Use Types Packs/Day Years Used Date Smoking Tobacco: Never Assessed Sex and Gender Information Value Date Recorded Sex Assigned at Not on file 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
--- OUTSIDE RECORDS SUMMARY | 2025-05-27 16:02 | XMS_ITS | Encounter Summary ---
Author Organization [facility] Address [address] [place] [address] Care Team Providers Care Pharmacy Aide Name Role Phone Sai Blackburn MD Primary Care Provider Encounter Details Date Type Department Care Team (Latest Contact Info) Description 08/08/2005 Outpatient Historical [facility] Cardiology Ancillary Services-[place] [address] [place] [address] Kvng Moran MD NO ADDRESS ON FILE Sinoatrial node dysfunct (Primary Dx); CARDIAC PACEMAKER IN SITU Social History Tobacco Use Types Packs/Day Years Used Date Smoking Tobacco: Never Assessed Sex and Gender Information Value Date Recorded Sex Assigned at Not on file 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
--- OUTSIDE RECORDS SUMMARY | 2025-05-27 16:02 | XMS_ITS | Encounter Summary ---
Author Organization [facility] Address [address] [place] [address] Care Team Providers Care Venetian Blind Machine Operator Name Role Phone Jeni Geronimo MD Primary Care Provider [phone] Reason for Visit * Reason Onset Date Comments reschedule appt and device check 02/11/2023 Encounter Details Date Type Department Care Team (Late st Contact Info) Description 02/11/[address] [facility] [address] [facility] [address] [place] [address] Amee Hare MD [address] [place] [address] reschedule appt and device check Social History Tobacco Use Types Packs/Day Years Used Date Smoking Tobacco: Former Cigarettes Q uit: 09/09/1989 Smokeless Tobacco: Never Alcohol Use Standard Drinks/Week Comments Yes 3 (1 standard drink = 0.6 oz pur e alcohol) Sex and Gender Information Value Date Recorded Sex Assigned at Not on file Legal Sex Male 7:39 AM COMB MACHINE OPERATOR Gender Identity Not on file Sexual Orientation Not on file documented as of this encounter Miscellaneous Notes * Telephone Encounter - Ann Marie Mcdonald - 02/11/2023 12:22 PM CDT Provider: Ananya and device check Person calling: Pt Phone #: [phone] Relationship to patient: self Reschedule appts on 02/12/23 due to pt being out of town. Pt lives 2 hrs away and needs a reschedule after 11 am. -Ann Marie Mcdonald documented in this encounter Plan of Treatment Upcoming Encounters Date Type Department Care Team (Late st Contact Info) Description 07/27/2025 8:00 AM COMB MACHINE OPERATOR Procedure visit [facility] [address] [place] [address] Amee Hare MD [address] [place] [address] documented as of this encounter Visit Diagnoses Not on filedocumented in this encounter Additional Health Concerns Infection Onset Date Last Indicated Resolved Time R/O Respiratory 04/20/2025 04/20/2025 04/20/2025 3 :55 PM CDT documented as of this encounter Care Teams Venetian Blind Machine Operator Relationship Specialty Start Date End Date Jeni Geronimo MD [address] [place] [address] PCP - General Family Practice 04/09/25 documented as of this encounter
--- OUTSIDE RECORDS SUMMARY | 2025-05-27 16:02 | XMS_ITS | Encounter Summary ---
Author Organization [facility] Address [address] [place] [address] Care Team Providers Care Japanese Tutor Name Role Phone Sai Blackburn MD Primary Care Provider [phone] Encounter Details Date Type Department Care Team (Latest Contact Info) Description 03/07/1999 Outpatient Historical [facility] Marques Rodriguez Jr., MD [address] [place] [phone] prison (current) use of anticoagulants (Primary Dx) Social History Tobacco Use Types Packs/Day Years Used Date Smoking Tobacco: Never Assessed Sex and Gender Information Value Date Recorded Sex Assigned at Not on file Legal Sex Male 6:03 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
--- OUTSIDE RECORDS SUMMARY | 2025-05-27 16:02 | XMS_ITS | Encounter Summary ---
Author Organization [facility] Address [address] [place] [address] Care Team Providers Care Teletype Installer Name Role Phone Sai Blackburn MD Primary Care Provider Encounter Details Date Type Department Care Team (Latest Contact Info) Description 07/09/2005 Outpatient Historical [facility] Imaging Services [address] [place] [address] Kvng Moran MD NO ADDRESS ON FILE CHEST PAIN NOS (Primary Dx) Social History Tobacco Use Types Packs/Day Years Used Date Smoking Tobacco: Never Assessed Sex and Gender Information Value Date Recorded Sex Assigned at Not on file Legal Sex Male 6:03 AM CITY WELLNESS COORDINATOR Gender Identity Not on file Sexual Orientation Not on file documented as of this encounter Plan of Treatment Not on file documented as of this encounter Procedures Procedure Name Priority Date/Time Associated Diagnosis Comments POC CREATININE Routine 07/09/2005 3:49 PM CITY WELLNESS COORDINATOR documented in this encounter Results * POC CREATININE (07/09/2005 3:49 PM CITY WELLNESS COORDINATOR) CREATININE POC 1.3 0.7 - 1.5 mg/dL INTERFACE SYSTEM 07/09/2005 3:49 PM CITY WELLNESS COORDINATOR us Kvng Moran MD POINT OF CARE TESTING Final Result INTERFACE SYSTEM Refer to clinic/hospital department documented in this encounter Visit Diagnoses Diagnosis Chest pain, unspecified- Primary documented in this encounter Care Teams Teletype Installer Relationship Specialty Start Date End Date Sai Blackburn MD [address] [place] [address] PCP - General Internal Medicine 06/24/19 01/17/20 documented as of this encounter
--- OUTSIDE RECORDS SUMMARY | 2025-05-27 16:02 | XMS_ITS | Encounter Summary ---
Author Organization [facility] Address [address] [place] [address] Care Team Providers Care Tobacco Prizer Name Role Phone Sai Blcakburn MD Primary Care Provider [phone] Encounter Details Date Type Department Care Team (Latest Contact Info) Description 08/09/1999 Outpatient Historical [facility] Marques Rodriguez Jr., MD [address] [place] [address] detention (current) use of anticoagulants (Primary Dx) Social History Tobacco Use Types Packs/Day Years Used Date Smoking Tobacco: Never Assessed Sex and Gender Information Value Date Recorded Sex Assigned at Not on file Legal Sex Male 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
--- OUTSIDE RECORDS SUMMARY | 2025-05-27 16:02 | XMS_ITS | Encounter Summary ---
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
--- OUTSIDE RECORDS SUMMARY | 2025-05-27 16:02 | XMS_ITS | Encounter Summary ---
Author Organization [facility] Address [address] [place] [address] Care Team Providers Care Stock Saw Operator Name Role Phone Jeni Geronimo MD Primary Care Provider [phone] Reason for Visit * Reason Onset Date Comments R/S 03/19/2023 Encounter Details Date Type Department Care Team (Late st Contact Info) Description 03/19/2023 Telephone [facility] [address] [place] [address] Amee Hare MD [address] [place] [address] R/S Social History Tobacco Use Types Packs/Day Years Used Date Smoking Tobacco: Former Cigarettes Q uit: 09/09/1989 Smokeless Tobacco: Never Alcohol Use Standard Drinks/Week Comments Yes 3 (1 standard drink = 0.6 oz pur e alcohol) Sex and Gender Information Value Date Recorded Sex Assigned at Not on file Legal Sex Male 7:39 AM JEWEL STRIPPER Gender Identity Not on file Sexual Orientation Not on file documented as of this encounter Miscellaneous Notes * Telephone Encounter - Grahma December - 03/19/2023 11:[address] Hare and pacer Call back # [phone] or [phone] Multiple recipients? no Reschedule appt date 6051012 Reason for reschedule out of town * Telephone Encounter - Oneyda Stevenson Susan - 03/19/2023 11:[address] Hare and pacer Call back # [phone] Multiple recipients? no Reschedule appt date 6051012 Reason for reschedule out of town documented in this encounter Plan of Treatment Upcoming Encounters Date Type Department Care Team (Late st Contact Info) Description 07/27/2025 8:00 AM JEWEL STRIPPER Procedure visit [facility] [address] [place] [address] Amee Hare MD [address] [place] [address] documented as of this encounter Visit Diagnoses Not on filedocumented in this encounter Additional Health Concerns Infection Onset Date Last Indicated Resolved Time R/O Respiratory 04/20/2025 04/20/2025 04/20/2025 3 :55 PM CDT documented as of this encounter Care Teams Stock Saw Operator Relationship Specialty Start Date End Date Jeni Geronimo MD [address] [facility] [place] [address] PCP - General Family Practice 04/09/25 documented as of this encounter
--- OUTSIDE RECORDS SUMMARY | 2025-05-27 16:02 | XMS_ITS | Encounter Summary ---
Author Organization [facility] Address [address] [place] [address] Care Team Providers Care Chief Engineer Waterworks Name Role Phone Sai Blackburn MD Primary Care Provider Encounter Details Date Type Department Care Team (Latest Contact Info) Description 05/09/1999 Outpatient Historical [facility] Cardiology- [place] [address] [place] [address] Kvng Moran MD NO ADDRESS ON FILE Sinoatrial node dysfunct (Primary Dx); Atrial flutter (CMS/HCC); Atrial fibrillation (CMS/HCC) Social History Tobacco Use Types Packs/Day Years Used Date Smoking Tobacco: Never Assessed Sex and Gender Information Value Date Recorded Sex Assigned at Not on file Legal Sex Male 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
--- OUTSIDE RECORDS SUMMARY | 2025-05-27 16:02 | XMS_ITS | Encounter Summary ---
Author Organization [facility] Address [address] [place] [address] Care Team Providers Care Bulb Grower Name Role Phone Sai Blackburn MD Primary Care Provider [phone] Encounter Details Date Type Department Care Team (Latest Contact Info) Description 09/04/2000 Outpatient Historical [facility] Marques Rodriguez Jr., MD [address] [place] [address] Atrial fibrillation (CMS/HCC) (Primary Dx); shelter (current) use of anticoagulants Social History Tobacco Use Types Packs/Day Years Used Date Smoking Tobacco: Never Assessed Sex and Gender Information Value Date Recorded Sex Assigned at Not on file Legal Sex Male 6:03 AM ORDER PULLER Gender Identity Not on file Sexual Orientation Not on file documented as of this encounter Plan of Treatment Not on file documented as of this encounter Visit Diagnoses Diagnosis Atrial fibrillation (CMS/HCC)- Primary Atrial fibrillation shelter (current) use of anticoagulants Long-term (current) use of anticoagulants documented in this encounter Care Teams Bulb Grower Relationship Specialty Start Date End Date Sai Blackburn MD [address] [place] [address] PCP - General Internal Medicine 06/24/19 01/17/20 documented as of this encounter
--- OUTSIDE RECORDS SUMMARY | 2025-05-27 16:02 | XMS_ITS | Encounter Summary ---
Author Organization [facility] Address [address] [place] [address] Care Team Providers Care Supervisor Accounting Clerks Name Role Phone Sai Blackburn MD Primary Care Provider Encounter Details Date Type Department Care Team (Latest Contact Info) Description 08/08/[address] 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
--- OUTSIDE RECORDS SUMMARY | 2025-05-27 16:02 | XMS_ITS | Encounter Summary ---
Author Organization [facility] Address [address] [place] [address] Care Team Providers Care Registered Nurse Post Partum Name Role Phone Sai Blackburn MD Primary Care Provider Encounter Details Date Type Department Care Team (Latest Contact Info) Description 01/20/2007 Outpatient Historical [facility] Endocrinology-[facility] [place] [address] [place] [address] Patricio Castellanos MD NO ADDRESS ON FILE Nontoxic Multinodular Goiter (Primary Dx) Social History Tobacco Use Types Packs/Day Years Used Date Smoking Tobacco: Never Assessed Sex and Gender Information Value Date Recorded Sex Assigned at Not on file 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
--- OUTSIDE RECORDS SUMMARY | 2025-05-27 16:02 | XMS_ITS | Encounter Summary ---
Author Organization [facility] Address [address] [place] [address] Care Team Providers Care Cup Trimming Machine Operator Name Role Phone Sai Blackburn MD Primary Care Provider Encounter Details Date Type Department Care Team (Latest Contact Info) Description 12/05/2006 Outpatient Historical [facility] Dermatology- [facility] [place] [address] [place] [address] Steven Cuevas MD NO ADDRESS ON FILE Neoplasm of Uncertain Behavior of Skin (Primary Dx) Social History Tobacco Use Types Packs/Day Years Used Date Smoking Tobacco: Never Assessed Sex and Gender Information Value Date Recorded Sex Assigned at Not on file Legal Sex Male 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
--- OUTSIDE RECORDS SUMMARY | 2025-05-27 16:02 | XMS_ITS | Encounter Summary ---
Author Organization [facility] Address [address] [place] [address] Care Team Providers Care Risk Management Consultant Name Role Phone Sai Blackburn MD Primary Care Provider Encounter Details Date Type Department Care Team (Late st Contact Info) Description 03/20/1999 Outpatient Historical [facility] [address] [place] [address] [place] [id number] Social History Tobacco Use Types Packs/Day Years Used Date Smoking Tobacco: Never Assessed Sex and Gender Information Value Date Recorded Sex Assigned at Not on file Legal Sex Male 6:03 AM SUPPLY CHAIN TECH Gender Identity Not on file Sexual Orientation Not on file documented as of this encounter Plan of Treatment Not on file documented as of this encounter Visit Diagnoses Not on filedocumented in this encounter Care Teams Risk Management Consultant Relationship Specialty Start Date End Date Sai Blackburn MD [address] [facility] [place] [id number] PCP - General Internal Medicine 06/24/19 01/17/20 documented as of this encounter
--- OUTSIDE RECORDS SUMMARY | 2025-05-27 16:02 | XMS_ITS | Clinical Summary ---
Author Organization [facility] tone Address [address] [place] [address] Care Team Providers Care It Specialist Name Role Phone Unavailable Primary Care Provider Unavailabl e Allergies Active Allergy Reactions Criticality Noted Date Comments Hydrocodone Other (See Comments) 12/30/2018 Keeps him awake, wired Medications methocarbamol (ROBAXIN) 750 mg tablet Take 750 mg by mouth 3 times daily. NEEEDED Active amiodarone (CORDARONE) 200 mg tablet Take 2 Tablets (400 mg) by mouth 2 times daily For 7 days. Then take 400 mg daily for 7 days. Then take 200 mg daily thereafter. 56 Tablet 01/10/20 Active Additional Information Patient taking differently: 200 mgOralDAILY, For 7 days. Then take 400 mg daily for 7 days. Then take 200 mg daily thereafter, Reported on 09/30/2020 simvastatin (ZOCOR) 40 mg tablet Take 40 mg by mouth daily at bedtime. Takes 1/2 tablet Active POTASSIUM CHLORIDE ORAL Take 20 mEq by mouth daily at bedtime. Active nortriptyline (PAMELOR) 25 mg capsule Take 25 mg by mouth daily at bedtime. Active allopurinoL (ZYLOPRIM) 100 mg tablet Take 100 mg by mouth daily accordion tuner. Active walker Length of Need: 99 months Type of walker:walker with wheels 1 Each 06/24/20 Active apixaban (Eliquis) 5 mg tablet Take 1 Tablet (5 mg) by mouth 2 times daily. 60 Tablet 12/01/19 Active omeprazole (PriLOSEC) 20 mg Capsule, Delayed Release(E.C.) Take 20 mg by mouth daily. Active pregabalin (LYRICA) 75 mg Capsule Take 75 mg by mouth 2 times daily. Pt takes 1 tab hs Active furosemide (LASIX) 40 mg tablet Take 40 mg by mouth daily. Active sacubitriL-valsart an (Entresto) 24-26 mg Tablet Take 1 Tablet by mouth 2 times daily. 60 Tablet 11 06/23/20 20 Active fluticasone propionate (FLONASE) 50 mcg/spray [place], Suspension nasal inhalerIndications :Chronic pansinusitis Administer 2 Sprays in each nostril daily. 16 Gram 09/06/20 20 Active albuterol HFA 90 mcg inhaler INHALE 2 PUFFS BY ORAL INHALATION FOUR TIMES A DAY FOR BREATHING. SHAKE WELL. RINSE MOUTHPIECE FREQUENTLY TO PREVENT CLOGGING. 02/17/20 20 Active carvediloL (COREG) 25 mg tabletIndications: Nonischemic cardiomyopathy (CMS/HCC) Take 0.5 Tablets (12.5 mg) by mouth 2 times daily with meals. 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 10/03/2020 Chest pain 06/13/2020 Atrial flutter 12/01/2019 Chronic systolic heart failure 12/01/2019 Chronic anticoagulation 12/01/2019 Status post total right knee replacement 019 Gout 06/19/2019 Elevated serum creatinine 06/19/2019 Atrial tachycardia 12/30/2018 Status post total left knee replacement 01/01/20 18 Obesity (BMI 30.0-34.9) 12/18/2017 Moderate persistent asthma without complication 01/02/2017 Plantar fasciitis 04/02/2016 Calcaneal spur of left foot 04/02/2016 Calcaneal spur of right foot 04/02/2016 Pronation deformity of both feet 04/02/2016 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 Gurrola Sinoatrial node dysfunction Atrial Fib/flutter depression Hyperlipidemia <70 ANJELICA Overview (10/28/2009): [facility] IBS Essential hypertension Nontoxic multinodular goiter Overview (10/29/2008): Dr. Castellanos hx tub chencho colon polyp Overview (10/29/2008): C 07/16, next 2011 Asthma Resolved Problems Problem Noted Date Diagnosed Date Resolved Date Primary localized osteoarthr osis of right lower leg 06/23/2019 08/03/2019 Primary osteoarthritis of left knee 12/30/2017 03/27/2018 Primary osteoarthritis of both knees 12/18/2017 06/23/2019 Abnormal EKG 10/1910/31/2009 11/02/2010 Overview (10/31/2009): 10/19 change Preoperative general physical examination 06/23/2019 Immunizations Immunization Administration Dates Next Due (ADACEL/BOOSTRIX)(10 YR UP) TDAP VACCINE, 0.5ML, IM 10/10/2007 10/10/2017 (PNEUMOVAX 23)(50 YRS UP) PNEUMOCOCCAL POLYSACCHARIDE (PPV23) 0.5 ML, IM 10/20/2004 (TDVAX)(7 YRS UP) TETANUS AN D DIPHTHERIA TOXOIDS, ADSORBED (2 LF OF TETANUS TOXOID AND 2 LF OF DIPHTHERIA TOXOID), 0.5ML (PF), IM 09/06/1998 Influenza Seasonal Unspecifi ed Formulation IM 06/09/2010,07/08/2009,06/09/2008,06/11,07/10/2006,06/27/2005 Influenza Vaccine High Dose 65+ Yrs IM 07/18/2015 Pneumococcal conjugate, unsp ecified formulation 07/20/2015 Family History Medical History Relation Name Comments Heart Disease Daughter Cathleen atrial tachyca rdia Heart Disease Father age 84 Respiratory Disease Father age 84 emphysem a Stroke Father age 84 Unknown Half-Sister Hypertension Mother age 79 Stroke Mother age 79 Breast Cancer Sister 1 La Other Sister 1 La bipolar Unknown Sister 2 1/ Colon Cancer Neg Hx Relation Name Status Comments Brother none Daughter Cathleen Alive Father age 84 Half-Sister Alive Mother age 79 Sister 1 La Alive Sister 2 1/2 Alive Son none Social History Tobacco Use Types Packs/Day Years Used Date Smoking Tobacco: Former Cigarettes 3 25 0 09/09/1964 - 09/09/1989 Smokeless Tobacco: Never Tobacco Cessation:Counseling Given: Yes Alcohol Use Standard Drinks/Week Comments Yes 3 (1 standard drink = 0.6 oz pure alcohol) 1-2 drinks approx 2-3 times weekly Sex and Gender Information Value Date Recorded Sex Assigned at Not on file Legal Sex Male 6:03 AM COMMISSIONING EDITOR Gender Identity Not on file Sexual Orientation Not on file Occupation Industry Job Start Date Job End Date disability 2001 Not on file Not on file Not on file Last Filed Vital Signs Vital Sign Reading Time Taken Comments Blood Pressure 92/52 01/09/2021 12:58 PM CDT Pulse 75 01/09/2021 12:58 PM CDT Temperature 36.8 C (98.2 F) 09/06/2020 8:42 AM COMMISSIONING EDITOR Respiratory Rate 16 10/04/2020 1:36 PM COMMISSIONING EDITOR Oxygen Saturation 97% 10/04/2020 1:36 PM COMMISSIONING EDITOR Inhaled Oxygen Concentration - - Weight 102.5 kg (226 lb) 01/09/2021 12:58 PM CDT Height 177.8 cm (5' 10 ) 01/09/2021 12:58 PM CDT Body Mass Index 32.43 01/09/2021 12:58 PM CDT Plan of Treatment Health Maintenance Due Date Last Done Comments ZOSTER VACCINE (1 of 2) 11/17/1995 PNEUMOCOCCAL VACCINE 50+ YEA RS (3 of 3 - PCV20 or PCV21) 08/29/2020 08/29/2015, 07/20/2015, 10/20/2004 RSV VACCINE (60+ or ) (1 - 1-dose 75+ series) 2020 DTAP/TDAP/TD VACCINES (3 - T d or Tdap) 09/19/2022 09/19/2012, 10/10/2007, 09/06/1998 COLORECTAL SCREENING 10/04/2023 10/04/2020, 10/04/2020, 09/25/2017, Additional history exists INFLUENZA VACCINE (#1) 2025 0, 10/15/2017, 07/18/2015, Additional history exists Medical Devices Implanted Type Area Applications Developer Device Identifier Shelf Expiration Date Model / Serial / Lot Cement Simplex Hvisc 6194-1-010 - [id number] Implanted:Qty: 1 on 12/31/2017 by Sebastián Thakkar MD at [facility] Cement Left: Knee [employer] 06/08/2019 6194-1-010 / / [id number] Cement Simplex Hvisc 6194-1-010 - [id number] Implanted:Qty: 1 on 12/31/2017 by Sebastián Thakkar MD at [facility] Cement Left: Knee [employer] 06/08/2019 6194-1-010 / / [id number] Cement Simplex Hvisc 6194-1-010 - [id number] Implanted:06/24 by Sebastián Thakkar MD at [facility] (Quantity not on file) Cement Right: Knee [employer]- [employer] 12/07/2020 6194-1-010 / / [id number] Cement Simplex Hvisc 6194-1-010 - [id number] Implanted:06/24 by Sebastián Thakkar MD at [facility] (Quantity not on file) Cement Right: Knee [employer] 12/07/2020 6194-1-010 / / [id number] Comp Fem Attn Cr Cmnt Sz7 1504-00-107 - [id number] Implanted:Qty: 1 on 12/31/2017 by Sebastián Thakkar MD at [facility] Knee Left: Knee [employer] 11/07/2027 [id number] / / [id number] Comp Tib Attn Fb Cmnt Sz7 1506-70-007 - [id number] Implanted:Qty: 1 on 12/31/2017 by Sebastián Thakkar MD at [facility] Knee Left: Knee [employer] 09/08/2027 [id number] / / [id number] Ins Attn Fb Cr Sz7 8mm 1516-20-708 - [id number] Implanted:Qty: 1 on 12/31/2017 by Sebastián Thakkar MD at [facility] Knee Left: Knee [employer] 12/07/2020 [id number] / / [id number] Comp Tib Attn Fb Cmnt Sz7 1506-70-007 - [id number] Implanted:Qty: 1 on 06/24/2019 by Sebastián Thakkar MD at [facility] Knee Right: Knee [employer] 03/08/2029 [id number] / / [id number] Ins Attn Fb Cr Sz7 8mm 1516-20-708 - [id number] Implanted:Qty: 1 on 06/24/2019 by Sebastián Thakkar MD at [facility] Knee Right: Knee [employer] 04/08/2024 [id number] / / [id number] Comp Fem Attn Cr Cmnt Sz7 1504-00-207 - [id number] Implanted:Qty: 1 on 06/24/2019 by Sebastián Thakkar MD at [facility] Knee Right: Knee [employer] 11/06/2028 [id number] / / [id number]/10/201 6 Implanted:11/16 (Quantity not on file) Pacemaker / [id number] / Procedures Procedure Name Priority Date/Time Associated Diagnosis Comments COLONOSCOPY REPORT 10/04/2020 1: 26 PM COMMISSIONING EDITOR from Last 3 Months or Most Recently Relevant to Health Maintenance Results * COLONOSCOPY REPORT (10/04/2020 1:26 PM COMMISSIONING EDITOR) Narrative Procedure Note Víctor Gurrola MD - 10/04/2020 1:25 PM CST [facility] GI Patient Name: Kale Harden Procedure Date: 10/04/2020 Date of : 1945 Admit Type: Outpatient Age: 74 Attending MD: Víctor Gurrola , Procedure: Colonoscopy Indications: Surveillance: Personal history of adenomatous polyps on last colonoscopy 3 years ago Providers: Víctor Gurrola Referring MD: Lynne Parker Medicines: Monitored Anesthesia Care Complications: No immediate complications. Procedure: Pre-Anesthesia Assessment: - The risks and benefits of the procedure and the sedation options and risks were discussed with the patient. All questions were answered and informed consent was obtained. - ASA Grade Assessment: III - A patient with severe systemic disease. After I obtained informed consent, the scope was passed under direct vision. Throughout the procedure, the patient's blood pressure, pulse, and oxygen saturations were monitored continuously. The Colonoscope was introduced through the anus and advanced to 5 cm into the ileum. The colonoscopy was performed without difficulty. The patient tolerated the procedure well. The quality of the bowel preparation was adequate. Estimated Blood Loss: Estimated blood loss was minimal. Findings: The perianal and digital rectal examinations were normal. A 5 mm polyp was found in the transverse colon. The polyp was sessile. The polyp was removed with a cold snare. Resection and retrieval were complete. Many diverticula were found in the sigmoid colon. Internal hemorrhoids were found during retroflexion. The hemorrhoids were moderate. The exam was otherwise without abnormality. The terminal ileum appeared normal. Impression: - One 5 mm polyp in the transverse colon, removed with a cold snare. Resected and retrieved. - Diverticulosis in the sigmoid colon. - Internal hemorrhoids. - The examination was otherwise normal. - The examined portion of the ileum was normal. Recommendation: - Repeat colonoscopy for surveillance based on pathology results. Víctor Gurrola, 10/04/2020 1:24:55 PM Number of Addenda: 0 Note Initiated On: 10/04/2020 12:53 PM Scope Withdrawal Time 0 hours 8 minutes 46 seconds Scope In: 1:03:16 PM Scope Out: 1:19:03 PM [address] [place], [place] Víctor Gurrola MD GI PROCEDURE ORDERABLES Final Result from Last 3 Months or Most Recently Relevant to Health Maintenance Insurance [employer] (INTERNAL) [facility] RX [employer] RX Member Subscriber Plan / Payer (Ef fective for All Dates) Name:Kale Harden Relation to Subscriber:Self Name:Kale Harden Payer ID:Not on file Type:RX Commercial Address: [address] [place] [employer] Commercial MEDICARE PART A AND B [facility] MEDICARE PART A AND B [facility] [employer] Advance Directives For more information, please contact: [phone] Documents on File Type Date Recorded Patient Roll Plugger Expl anation Advance Directive POA 12/17/2017 4:15 PM A dvance Directive POA * Full Code (Latest Code Status on File) Date Activated Date Inactivated Comments 10/04/2020 12:18 PM 10/04/2020 4:02 PM * Full Code Date Activated Date Inactivated Comments 06/24/2019 10:13 AM 06/26/2019 1:48 PM * Full Code Date Activated Date Inactivated Comments 06/24/2019 5:50 AM 06/24/2019 10:13 AM * Full Code Date Activated Date Inactivated Comments 12/31/2017 1:13 PM 01/02/2018 1:40 PM * Full Code Date Activated Date Inactivated Comments 12/31/2017 8:14 AM 12/31/2017 1:13 PM
--- OUTSIDE RECORDS SUMMARY | 2025-05-27 16:02 | XMS_ITS | Clinical Summary ---
Author Organization [facility] Address [address] [place]: Epic Prelude ADT BRENDA ANGEL [phone] Care Team Providers Care Internal Controls Analyst Name Role Phone Jeni Geronimo MD Primary Care Provider Allergies Active Allergy Reactions Criticality Noted Date Comments Hydrocodone Other (See Comments) 12/30/2018 Keeps him awake, wired Medications simvastatin (ZOCOR) 40 mg tablet Take 40 mg by mouth daily at bedtime. Takes 1/2 tablet 06/19/20 19 Active nortriptyline (PAMELOR) 25 mg capsule Take 25 mg by mouth daily at bedtime. 06/19/20 19 Active POTASSIUM CHLORIDE ORAL Take 20 mEq by mouth daily at bedtime. 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 06/19/20 19 Active omeprazole (PriLOSEC) 20 mg Capsule, Delayed Release(E.C.) Take 20 mg by mouth daily. 12/01/19 20 Active pregabalin (LYRICA) 75 mg Capsule Take 75 mg by mouth 2 times daily. Pt takes 1 tab hs 12/01/19 20 Active furosemide (LASIX) 40 mg tablet Take 40 mg by mouth daily. 06/07/20 20 Active fluticasone propionate (FLONASE) 50 mcg/spray Dun[place], Suspension nasal inhalerIndication s:Chronic pansinusitis Administer 2 Sprays in each nostril daily. 16 Gram 0 09/06/20 20 Active Additional Information Patient taking differently:2 Dundee Both NostrilsDAILY PRN, Allergies, Reported on 04/26/2025 sacubitriL-valsar gama (Entresto) 24-26 mg Tablet Take 1 Tablet by mouth 2 times daily. 60 Tablet 11 06/23/20 20 Active albuterol HFA 90 mcg inhaler INHALE 2 PUFFS BY ORAL INHALATION FOUR TIMES A DAY FOR BREATHING. SHAKE WELL. RINSE MOUTHPIECE FREQUENTLY TO PREVENT CLOGGING. 02/17/20 20 Active methocarbamoL (ROBAXIN) 750 mg tablet Take 750 mg by mouth 3 times daily. NEEEDED 12/31/19 19 Active carvediloL (COREG) 25 mg tabletIndications :Nonischemic cardiomyopathy (CMS/HCC) Take 0.5 Tablets (12.5 mg) by mouth 2 times daily with meals. 90 Tablet 3 01/10/20 21 Active apixaban (ELIQUIS) 5 mg tablet TAKE ONE TABLET BY MOUTH TWICE A DAY FOR ANTICOAGULATION 12/01/19 20 Active ipratropium bromide (ATROVENT) 21 mcg (0.03 %) Dundee, Non-Aerosol USE 1 SPRAY INTO NOSTRIL(S) THREE TIMES A DAY FOR ALLERGIES/NASAL SYMPTOMS. 02/17/20 21 Active loratadine (CLARITIN) 10 mg tablet TAKE ONE TABLET BY MOUTH ONCE A DAY ON EMPTY STOMACH FOR ALLERGIES 03/20/20 21 Active tiotropium-olodat Joseph (STIOLTO RESPIMAT) 2.5-2.5 mcg/actuation metered inhaler INHALE 1 PUFF BY ORAL INHALATION ONCE A DAY ADMINISTER AT SAME TIME EACH DAY FOR BREATHING 10/13/19 21 Active calcium carbonate/vitamin D3 (CALCIUM 600 + D,3, ORAL) Take 2 Capsules by mouth. Active ZINC ACETATE ORAL Take by mouth. Active dextromethorphan- guaiFENesin (MUCINEX DM) 30-600 mg Tablet Sustained Release 12HRIndications:P roductive cough Take 1 Tablet by mouth every 12 hours. 60 Tablet 2 10/19/19 22 Active MAGNESIUM CITRATE ORAL Take by mouth. Activ e vit B complex no.12/niacin,B3, (VITAMIN B COMPLEX NO.12-NIACIN ORAL) Take by mouth. Activ e traMADol (ULTRAM) 50 mg tabletIndications :NICM (nonischemic cardiomyopathy) (CMS/HCC),Atrial flutter, unspecified type (CMS/HCC) Take 1 Tablet (50 mg) by mouth every 8 hours as needed for Pain. 15 Tablet 04/19/20 Active empagliflozin (JARDIANCE) 25 mg tablet Take 12.5 mg by mouth daily in the morning. 04/02/20 Active cefdinir (OMNICEF) 300 mg capsule Take 1 Capsule (300 mg) by mouth every 12 hours for 5 days. 10 Capsule 04/22/202024 Active Problems Problem Noted Date Diagnosed Date History of pulmonary embolism 04/23/2025 Hyperlipidemia 04/20/2025 Acute pulmonary embolism without acute cor pulmo nale 04/20/2025 Sleep apnea 04/20/2025 Possible pneumonia of right lower lobe due to infectious organism 04/20/2025 Cardiac pacemaker in situ 04/02/2025 NICM (nonischemic cardiomyopathy) 04/02/2025 continuous churn buttermaker current use of amiodarone 10/03/2020 Chest pain 06/13/2020 Chronic anticoagulation 12/01/2019 Atrial flutter 12/01/2019 Chronic systolic heart failure 12/01/2019 Status post total right knee replacement 019 Gout 06/19/2019 Elevated serum creatinine 06/19/2019 Atrial tachycardia 12/30/2018 Status post total left knee replacement 01/01/20 18 Obesity (BMI 30.0-34.9) 12/18/2017 Moderate persistent asthma without complication 01/02/2017 Plantar fasciitis 04/02/2016 Calcaneal spur of right foot 04/02/2016 Pronation deformity of both feet 04/02/2016 Calcaneal spur of left foot 04/02/2016 Combined systolic and diasto lic congestive heart failure, NYHA class 3 03/29/2016 Nonischemic cardiomyopathy 03/27/2016 Presence of permanent cardiac pacemaker 06/14/20 15 V70.0 11/10/2012 Pacemaker 2007 Medtronic 10/29/2008 Overview (01/05/2021): Dr. 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 Gurrola Atrial Fib/flutter ANJELICA Overview (01/04/2021): Bipap [facility] Nontoxic multinodular goiter Overview (01/04/2021): Dr. Castellanos Sinoatrial node dysfunction Hyperlipidemia <70 Essential hypertension depression IBS hx tub chencho colon polyp Overview (01/04/2021): C 2011 Asthma Resolved Problems Problem Noted Date Diagnosed Date Resolved Date Fever 04/20/2025 04/22/2025 Primary localized osteoarthr osis of right lower leg 06/23/2019 08/03/2019 Primary osteoarthritis of left knee 12/30/2017 03/27/2018 Primary osteoarthritis of both knees 12/18/2017 06/23/2019 Abnormal EKG 10/1910/31/2009 11/02/2010 Overview (01/04/2021): 10/19 change Preoperative general physical examination 06/23/2019 Encounters Date Type Department Care Team Description 05/18/2025 External Device Data STL ABSTRACTION Provider, Abstract 05/06/2025 1:30 PM CDT Nurse Only [place] [address] [place] [address] [phone] Amee Hare MD Sick sinus syndrome (CMS/HCC) (Primary Dx); Atrial fibrillation, unspecified type (CMS/HCC); Nonischemic cardiomyopathy 05/05/2025 External Device Data STL ABSTRACTION Provider, Abstract 04/28/2025 External Device Data STL ABSTRACTION Provider, Abstract 04/27/2025 External Device Data STL ABSTRACTION Provider, Abstract 04/27/2025 Telephone [place] [address] [place] [phone] Amee Hare MD Question 04/26/2025 11:15 AM CDT Procedure visit [place] [address] [place] [phone] Amee Hare MD NICM (nonischemic cardiomyopathy) (CMS/HCC) (Primary Dx); Atrial fibrillation, unspecified type (CMS/HCC); SSS (sick sinus syndrome) (CMS/HCC) 04/26/2025 11:00 AM CDT Procedure visit [facility] [address] [place] [phone] Amee Hare MD Atrial fibrillation, unspecified type (CMS/HCC) (Primary Dx); Sick sinus syndrome (CMS/HCC); Nonischemic cardiomyopathy; Cardiac pacemaker in situ 04/26/2025 10:20 AM CDT Office Visit [facility] [address] [place] [address] [phone] Zia Mata CRNP Mahata, Indrajeet, MD Acute pulmonary embolism without acute cor pulmonale, unspecified pulmonary embolism type (CMS/HCC) (Primary Dx) 04/22/2025 Telephone [place] [address] [place] [address] [phone] Amee Hare MD Needing a sooner appt 04/20/2025 1:06 PM CDT - 04/22/2025 12:12 PM CDT Hospital Encounter [facility] 4C Medical [address] [place] [phone] Marques Mcleod DO Griffin, Kristin L, MD Nagotu Kambagiri, Sharada, MD Acute pulmonary embolism without acute cor pulmonale (CMS/HCC) Discharge Disposition: Home or Self Care 04/20/2025 Travel 04/19/2025 Telephone [facility] [address] [place] [address] [phone] Amee Hare MD Question 04/16/2025 Abstract [facility] [address] [place] [address] [phone] Scanning, Provider 04/14/2025 9:27 AM CDT Anesthesia Event [facility] Cardiac Chief Deputy Court Clerk [address] [place] [phone] Sebastián Ordonez MD Thornsberry, Amanda G, CRNA 04/14/2025 8:50 AM CDT - 04/14/2025 11:36 AM CDT Surgery [facility] Cardiac Chief Deputy Court Clerk [address] [place] [phone] Amee Hare MD Pacemaker Upgrade to Biventricular Pacemaker 04/14/2025 6:16 AM CDT - 04/14/2025 4:10 PM CDT Hospital Encounter [facility] Prep Recovery [address] [place] [phone] Amee Hare MD Atrial fibrillation (CMS/HCC) Discharge Disposition: Home or Self Care 04/13/2025 External Device Data STL ABSTRACTION Provider, Abstract 04/02/2025 Prep for Surgery [facility] [address] [place] [phone] Amee Hare MD Cardiac pacemaker in situ (Primary Dx); NICM (nonischemic cardiomyopathy) (CMS/HCC); Atrial fibrillation, unspecified type (CMS/HCC); Atrial flutter, unspecified type (CMS/HCC); Sinoatrial node dysfunction (CMS/HCC) 03/31/2025 Telephone [facility] [address] [place] [address] [phone] Ariana Gregory RN Needs Appointment 03/30/2025 Chart Note [facility] [address] [place] [phone] Ariana Gregory RN 03/29/2025 7:22 AM CDT - 03/29/2025 11:59 PM CDT Hospital Encounter [facility] Echo [address] [place] [phone] Zia Mata CRNP Discharge Disposition: Home or Self Care 03/26/2025 Orders Only [facility] [address] [place] [address] [phone] Zia Mata CRNP Nonischemic cardiomyopathy (CMS/HCC) (Primary Dx); SSS (sick sinus syndrome) ([facility]/HCC); SOBOE (shortness of breath on exertion) 03/24/2025 External Device Data STL ABSTRACTION Provider, Abstract 03/24/2025 External Device Data STL ABSTRACTION Provider, Abstract 03/22/2025 Results Follow-Up [facility] [address] [place] [address] [phone] Zia Mata CRNP CTA HEART AND ARTERIES 03/17/2025 8:20 AM CDT - 03/17/2025 11:59 PM CDT Hospital Encounter [facility] CT Scan [address] [place] [phone] Zia Mata CRNP Discharge Disposition: Home or Self Care 03/17/2025 8:04 AM CDT - 03/17/2025 11:59 PM CDT Hospital Encounter [facility] CT Scan [address] [place] [phone] Zia Mata CRNP Discharge Disposition: Home or Self Care 03/11/2025 Telephone [facility] [address] [place] [address] [phone] Zia Mata CRNP 03/17/25 CTA Needs RFS 03/01/2025 Telephone [facility] [address] [place] [phone] Zia Mata CRNP Medication Question 02/24/2025 External Device Data STL ABSTRACTION Provider, Abstract from Last 3 Months Immunizations Immunization Administration Dates Next Due (ADACEL/BOOSTRIX)(10 YR UP) TDAP VACCINE, 0.5ML, IM 09/18/2022,09/19/2012,10/10/2007 (PFIZER)(12 YR UP) COVID-19 VACCINE - EMERGENCY USE AUTHORIZATION, MRNA, [id number](PF) 30 MCG/0.3 ML IM SUSP 11/04/2020 (PNEUMOVAX 23)(50 YRS UP) PN EUMOCOCCAL POLYSACCHARIDE (PPV23) 0.5 ML, IM 10/20/2004 (PREVNAR 13)(6 WKS UP) PNEUM OCOCCAL CONJUGATE (PCV13) 0.5 ML, IM 08/29/2015 (TDVAX)(7 YRS UP) TETANUS AN D DIPHTHERIA TOXOIDS, ADSORBED (2 LF OF TETANUS TOXOID AND 2 LF OF DIPHTHERIA TOXOID), 0.5ML (PF), IM 09/06/1998 INFLUENZA VACCINE QUADRIVALE NT 6 MOS UP PF IM 09/26/2023,08/11/2021,06/02/2020,09/07,12/24/2018 INFLUENZA VACCINE QUADRIVALE NT ADJ 65 YR UP PF IM 08/23/2022 Influenza Seasonal Unspecifi ed Formulation IM 08/09/2021,06/09/2010,07/08/2009,06/09,07/09/2007,07/10/2006,06/27/2005 Influenza Seasonal Unspecifi ed Formulation PF IM 06/26/2024,10/15/2017,07/11/2016,06/29 Influenza Vaccine High Dose 65+ Yrs IM 5 Influenza, Unspecified Formulation 06/18,09/15/2014,09/19/2012,05/19,06/26/2010,05/19/2009,06/28/2008 ,06/24/2008,06/09/2008,10/02/2007,07/11,08/17/2005,06/20/2004 Pneumococcal conjugate, unsp ecified formulation 07/20/2015 Pneumococcal vaccine, unspec ified formulation 02/19/2011,09/09/1994 Family History Medical History Relation Name Comments Heart Disease Daughter Cathleen atrial tachyca rdia Heart Disease Father age 84 Respiratory Disease Father age 84 emphysem a Stroke Father age 84 Unknown Half-Sister Hypertension Mother age 79 Stroke Mother age 79 Unknown Sister 1 1/2 Breast Cancer Sister 2 La Other Sister 2 La bipolar Colon Cancer Neg Hx Relation Name Status Comments Brother none Daughter Cathleen Alive Father age 84 Half-Sister Alive Mother age 79 Sister 1 1/2 Alive Sister 2 La Alive Son none Social History Tobacco Use Types Packs/Day Years Used Date Smoking Tobacco: Former Cigarettes Q uit: 09/09/1989 Smokeless Tobacco: Never Tobacco Cessation:Counseling Given: Not Answered Alcohol Use Standard Drinks/Week Comments Yes 1 (1 standard drink = 0.6 oz pur e alcohol) Feeling Safe Answer Date Recorded Are you in a relationship wi th someone who hurts you emotionally and/or physically? 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 Gender Identity Not on file Sexual Orientation Not on file Last Filed Vital Signs Vital Sign Reading Time Taken Comments Blood Pressure 132/80 04/26/2025 10:30 AM CDT Pulse 66 04/26/2025 10:30 AM CDT Temperature 36.7 C (98.1 F) 04/22/2025 7:40 AM CDT Respiratory Rate 18 04/22/2025 7:40 AM CDT Oxygen Saturation 92% 04/22/2025 7:40 AM CDT Inhaled Oxygen Concentration - - Weight 102.5 kg (226 lb) 04/26/2025 10:30 AM CDT Height 177.8 cm (5' 10 ) 04/26/2025 10:30 AM CDT Body Mass Index 32.43 04/26/2025 10:30 AM CDT Plan of Treatment Upcoming Encounters Date Type Department Care Team (Late st Contact Info) Description 07/27/2025 8:00 AM DRY KILN LOADER Procedure visit [facility] [address] [place] [phone] Amee Hare MD [address] [place] [phone] Health Maintenance Due Date Last Done Comments ZOSTER VACCINE (1 of 2) 11/17/1995 PNEUMOCOCCAL VACCINE 50+ YEA RS (3 of 3 - PCV20 or PCV21) 08/29/2020 08/29/2015, 07/20/2015, 02/19/2011, Additional history exists RSV VACCINE (60+ or ) (1 - 1-dose 75+ series) 2020 COLORECTAL SCREENING 10/04/2023 10/04/2020, 10/04/2020, 09/25/2017, Additional history exists INFLUENZA VACCINE (#1) 2025 , 09/26/2023, 08/23/2022, Additional history exists COVID-19 Vaccine (2024-2 6 season) 2025 08/29/2022, 03/29/2022, 06/22/2021, Additional history exists DTAP/TDAP/TD VACCINES (4 - T d or Tdap) 09/18/2032 09/18/2022, 09/19/2012, 10/10/2007, Additional history exists Medical Devices Implanted Type Area Career Law Clerk Device Identifier Shelf Expiration Date Model / Serial / Lot Cement Simplex Hvisc 6194-1-010 - [id number] Implanted:Qty: 1 on 12/31/2017 by Sebastián Thakkar MD Cement Left: Knee SAMINA- [employer] 06/08/2019 6194-1-010 / / [id number] Cement Simplex Hvisc 6194-1-010 - [id number] Implanted:Qty: 1 on 12/31/2017 by Sebastián Thakkar MD Cement Left: Knee [employer]INA- [employer] 06/08/2019 6194-1-010 / / [id number] Cement Simplex Hvisc 6194-1-010 - [id number] Implanted:06/09 by Sebastián Thakkar MD (Quantity not on file) Cement Right: Knee SAMINA- [employer]MED[employer] INC 12/07/2020 6194-1-010 / / [id number] Cement Simplex Hvisc 6194-1-010 - [id number] Implanted:06/09 by Sebastián Thakkar MD (Quantity not on file) Cement Right: Knee SAMINA- [employer] 12/07/2020 6194-1-010 / / [id number] Comp Tib Attn Fb Cmnt Sz7 1506-70-007 - [id number] Implanted:Qty: 1 on 12/31/2017 by Sebastián Thakkar MD Knee Left: Knee J[employer]J- [employer] 09/08/2027 [id number] / / [id number] Ins Attn Fb Cr Sz7 8mm 1516-20-708 - [id number] Implanted:Qty: 1 on 12/31/2017 by Sebastián Thakkar MD Knee Left: Knee J[employer]J- [employer] 12/07/2020 [id number] / / [id number] Comp Fem Attn Cr Cmnt Sz7 1504-00-107 - [id number] Implanted:Qty: 1 on 12/31/2017 by Sebastián Thakkar MD Knee Left: Knee J[employer] 11/07/2027 [id number] / / [id number] Comp Tib Attn Fb Cmnt Sz7 1506-70-007 - [id number] Implanted:Qty: 1 on 06/24/2019 by Sebastián Thakkar MD Knee Right: Knee J[employer] 03/08/2029 [id number] / / [id number] Ins Attn Fb Cr Sz7 8mm 1516-20-708 - [id number] Implanted:Qty: 1 on 06/24/2019 by Sebastián Thakkar MD Knee Right: Knee J[employer] 04/08/2024 [id number] / / [id number] Comp Fem Attn Cr Cmnt Sz7 1504-00-207 - [id number] Implanted:Qty: 1 on 06/24/2019 by Sebastián Thakkar MD Knee Right: Knee J[employer]J- [employer] 11/06/2028 [id number] / / [id number] Lead Attain 88cm St Vent Quad 4798-88 - [id number] Implanted:Qty: 1 on 04/14/2025 by Amee Hare MD at [facility] Lead N/A: Chest Wall [employer]- CARD RHYTHM MGMT [id number] 11/27/2026 4798-88 / [id number] / Uspp17-3/10/20 16 Implanted:11/07 (Quantity not on file) Pacemaker / [id number] / Pacemaker Percepta Business Excellence Manager-P Quad Mri Surescan W4tr01 - [id number] Implanted:Qty: 1 on 04/14/2025 by Amee Hare MD at [facility] Pacemaker N/A: Chest Wall [employer]- CRM - BULK BUY [id number] 06/06/2026 W4TR01 / [id number] / Procedures Procedure Name Priority Date/Time Associated Diagnosis Comments IA INTERROG EVAL, REMOTE, UP TO 90 DAYS, PACER/DEFIB WITHIN GLOBAL Routine 05/06/2025 2:43 PM CDT Sick sinus syndrome (CMS/HCC) Atrial fibrillation, unspecified type (CMS/HCC) Nonischemic cardiomyopathy IA INTERROG EVAL,REMOTE,UP TO 90 DAYS,PACEMAKER WITHIN GLOBAL Routine 05/06/2025 2:43 PM CDT Sick sinus syndrome (CMS/HCC) Atrial fibrillation, unspecified type (CMS/HCC) Nonischemic cardiomyopathy IA PROGRAM EVAL IMPLANT DEVICE, PACEMAKER, MULTI-LEAD WITHIN GLOBAL Routine 04/26/2025 11:48 AM CDT NICM (nonischemic cardiomyopathy) (CMS/HCC) Atrial fibrillation, unspecified type (CMS/HCC) SSS (sick sinus syndrome) (CMS/HCC) IA PROGRAM EVAL IMPLANTABLE IN PRSN MULTI LD PACER Routine 04/26/2025 11:48 AM CDT Atrial fibrillation, unspecified type (CMS/HCC) Sick sinus syndrome (CMS/HCC) Nonischemic cardiomyopathy Cardiac pacemaker in situ TELEMETRY REPORT 04/23/2025 3:10 AM CDT PTT Routine 04/22/2025 8:59 AM CDT PTT Timed Study 04/22/2025 3:16 AM CDT BASIC METABOLIC PANEL Routine 04/22/2025 3:16 AM CDT CBC WITHOUT DIFFERENTIAL Routine 04/22/2025 3:16 AM CDT HOME O2 EVAL (DESATURATION SCREEN) Routine 04/22/2025 12:16 AM CDT LEGIONELLA ANTIGEN, URINE Routine 04/21/2025 8:05 PM CDT STREPTOCOCCUS PNEUMONIAE ANTIGEN Routine 04/21/2025 8:05 PM CDT PTT Timed Study 04/21/2025 6:40 PM CDT PROCALCITONIN Routine 04/21/2025 4:23 PM CDT BRAIN NATRIURETIC PEPTIDE, BNP OR PROBNP Routine 04/21/2025 1:45 PM CDT BASIC METABOLIC PANEL Routine 04/21/2025 1:45 PM CDT PTT Timed Study 04/21/2025 1:45 PM CDT PTT Timed Study 04/21/2025 5:36 AM CDT MAGNESIUM LEVEL Routine 04/21/2025 5:36 AM CDT BASIC METABOLIC PANEL Routine 04/21/2025 5:36 AM CDT CBC WITHOUT DIFFERENTIAL Routine 04/21/2025 5:36 AM CDT PTT Timed Study 04/20/2025 9:49 PM CDT EXTRA TUBE (URINE WESLEY) Stat 04/20/2025 4:20 PM CDT URINALYSIS W/REFLEX MICROSCOPIC Stat 04/20/2025 4:20 PM CDT TROPONIN 6 HR, 5TH GEN Timed Study 04/20/2025 4:19 PM CDT PTT Stat 04/20/2025 4:19 PM CDT RT ASSESS AND TREAT Stat 04/20/2025 4:07 PM CDT MAGNESIUM LEVEL Stat 04/20/2025 2:58 PM CDT TROPONIN 2 HR, 5TH GEN Timed Study 04/20/2025 2:58 PM CDT RESPIRATORY PATHOGEN PCR PANEL Stat 04/20/2025 2:57 PM CDT CTA CHEST W AND/OR WO CONTRAST Stat 04/20/2025 2:16 PM CDT CBC WITH DIFFERENTIAL Stat 04/20/2025 1:35 PM CDT BLOOD CULTURE Stat 04/20/2025 1:33 PM CDT BLOOD CULTURE Stat 04/20/2025 1:33 PM CDT BLOOD CULTURE Stat 04/20/2025 1:33 PM CDT BLOOD CULTURE Stat 04/20/2025 1:33 PM CDT XR CHEST PA OR AP 1 VW Stat 04/20/2025 12:30 PM CDT EXTRA TUBE (GREEN) Stat 04/20/2025 12:17 PM CDT EXTRA TUBE Stat 04/20/2025 12:17 PM CDT TROPONIN BASELINE, 5TH GEN Stat 04/20/2025 12:17 PM CDT LIPASE Stat 04/20/2025 12:17 PM CDT COMPREHENSIVE METABOLIC PANEL Stat 04/20/2025 12:17 PM CDT EKG 12-LEAD Stat 04/20/2025 11:26 AM CDT CRITICAL CARE Routine 04/20/2025 11:22 AM CDT TELEMETRY REPORT 04/15/2025 2:13 PM CDT EKG 12-LEAD Pending Discharge 04/14/2025 2:45 PM CDT XR CHEST PA AND LATERAL 2 VW Pending Discharge 04/14/2025 1:51 PM CDT PACEMAKER UPGRADE TO BIVENTRICULAR PACEMAKER W ANES Routine 04/14/2025 11:18 AM CDT Cardiac pacemaker in situ Atrial fibrillation (CMS/HCC) Atrial flutter (CMS/HCC) Sinoatrial node dysfunction (CMS/HCC) NICM (nonischemic cardiomyopathy) (CMS/HCC) EKG 12-LEAD Pending Discharge 04/14/2025 7:55 AM CDT XR CHEST PA OR AP 1 VW Pending Discharge 04/14/2025 7:49 AM CDT BASIC METABOLIC PANEL Routine 04/14/2025 7:08 AM CDT PROTIME-INR Routine 04/14/2025 7:08 AM CDT CBC WITH DIFFERENTIAL Routine 04/14/2025 7:08 AM CDT ECHOCARDIOGRAM W/ CONTRAST AGENT Stat 03/29/2025 8:44 AM CDT Nonischemic cardiomyopathy (CMS/HCC) SSS (sick sinus syndrome) (CMS/HCC) SOBOE (shortness of breath on exertion) CT CARDIAC CHEST INTERPRETATION Routine 03/17/2025 10:13 AM CDT Complete heart block (CMS/HCC) Presence of permanent cardiac pacemaker Paroxysmal atrial fibrillation (CMS/HCC) Hx of atrioventricular node ablation Chronic anticoagulation Chronic combined systolic and diastolic CHF, NYHA class 1 (CMS/HCC) Nonischemic cardiomyopathy (CMS/HCC) Essential hypertension Dyslipidemia SOBOE (shortness of breath on exertion) Unstable angina pectoris (CMS/HCC) CTA HEART AND ARTERIES Routine 03/17/2025 10:13 AM CDT Complete heart block (CMS/HCC) Presence of permanent cardiac pacemaker Paroxysmal atrial fibrillation (CMS/HCC) Hx of atrioventricular node ablation Chronic anticoagulation Chronic combined systolic and diastolic CHF, NYHA class 1 (CMS/HCC) Nonischemic cardiomyopathy (CMS/HCC) Essential hypertension Dyslipidemia SOBOE (shortness of breath on exertion) Unstable angina pectoris (CMS/HCC) POC CREATININE Routine 03/17/2025 8:36 AM CDT COLONOSCOPY REPORT 10/04/2020 1:25 PM DRY KILN LOADER from Last 3 Months or Most Recently Relevant to Health Maintenance Results * IA INTERROG EVAL,REMOTE,UP TO 90 DAYS,PACEMAKER WITHIN GLOBAL, IA INTERROG EVAL, REMOTE, UP TO 90 DAYS, PACER/DEFIB WITHIN GLOBAL (05/06/2025 2:43 PM CDT) 05/06/2025 2:43 PM CDT Narrative INTERFACE SYSTEM - 05/06/2025 2:15 PM CDT Remote Transmission Report Date of Procedure: May 06, 2025 Events: since 04-26-2025: 1 NSVT episode, 2 seconds, 167 BPM, previously reported. Comments: [facility] remote transmission reveals normal multi chamber pacemaker function with stable available threshold and impedance trends. Presenting EGM indicates Atrial Pacing and BiVentricular Pacing. Follow-up [facility], remote transmission, from home 3 month, 07-27-2025. See attached report for details. No charge. Procedure Note Provider, Historical - 05/06/2025 Remote Transmission Report Date of Procedure: May 06, 2025 Events: since 04-26-2025: 1 NSVT episode, 2 seconds, 167 BPM, previouslyreported. Comments: [facility] remote transmission reveals normal multi chamber pacemakerfunction with stable available threshold and impedance trends. Presenting EGM indicates Atrial Pacing and BiVentricular Pacing. Follow-up [facility], remote transmission, from home 3 month, 07-27-2025. See attached report for details. No charge. us Amee Hare MD CARDIAC SERVICES ORDERABLES Edited Result - Final INTERFACE SYSTEM Refer to clinic/hospital department * IA PROGRAM EVAL IMPLANT DEVICE, PACEMAKER, MULTI-LEAD WITHIN GLOBAL (04/26/2025 11:48 AM CDT) Only the most recent of2 resultswithin the time period is included. 04/26/2025 11:4 8 AM CDT Narrative INTERFACE SYSTEM - 04/27/2025 1:04 PM CDT Office Device Check Report Date of Procedure: April 26, 2025 Events: Since 04/20/2025 Atrial: 23 (6.7%) known hx on Eliquis per med list Ventricular: 1 nonsustained high ventricular rate episode Other Episodes: None Changes: None Comments: Reason for office check: ER follow up. Normal tri chamber [employer] OP-P function with stable thresholds and impedances. Battery reserve is 8.8 years. Presenting - atrial/biventricular pacing 60s to 70s bpm. Underlying - sinus rhythm with 3rd degree AV block and ventricular escape < 30 bpm. Follow-up by remote transmission in 3 months. See attached report for details. Procedure Note Provider, Historical - 04/27/2025 Office Device Check Report Date of Procedure: April 26, 2025 Events: Since 04/20/2025 Atrial: 23 (6.7%) known hx on Eliquis per med list Ventricular: 1 nonsustained high ventricular rate episode Other Episodes: None Changes: None Comments: Reason for office check: ER follow up. Normal tri chamber [employer] OP-P function with stable thresholds and impedances. Battery reserve is 8.8 years. Presenting - atrial/biventricular pacing 60s to 70s bpm. Underlying - sinus rhythm with 3rd degree AV block and ventricular escape< 30 bpm. Follow-up by remote transmission in 3 months. See attached report for details. us Amee Hare MD CARDIAC SERVICES ORDERABLES Edited Result - Final INTERFACE SYSTEM Refer to clinic/hospital department * TELEMETRY REPORT (04/23/2025 3:10 AM CDT) Only the most recent of2 resultswithin the time period is included. us Provider Scanning ECG ORDERABLES Final Result * (ABNORMAL) PTT (04/22/2025 8:59 AM CDT) Only the most recent of7 resultswithin the time period is included. [facility] PTT 74.8(H) 24.8 - 37.2 seconds 04/22/2025 9:42 AM CDT [facility] Blood Venipuncture / Unknown 04/22/2025 8:59 AM CDT 04/22/2025 9:15 AM CDT [facility] - 04/22/2025 9:42 AM CDT Therapeutic Range: Hi-level PE/DVT heparin protocol 80.1 - 95.0 sec Lo-level PE/DVT heparin protocol 70.1 - 85.0 sec Cardiac Heparin Protocol 70.1 - 100.0 sec us Mena Calvillo MD HEMATOLOGY ORDERABLE S Final Result Performing Organization Address City/State/[facility] Co de Phone Number [facility] CLIA # [id number] [address] [place] [address] * (ABNORMAL) CBC WITHOUT DIFFERENTIAL (04/22/2025 3:16 AM CDT) Only the most recent of2 resultswithin the time period is included. [facility] WBC 7.1 4.8 - 10.8 K/uL 04/22/2025 4:21 AM [facility] RBC 3.91(L) 4.60 - 6.20 M/uL 04/22/2025 4:21 AM T [facility] HEMOGLOBIN 12.9(L) 14.0 - 18.0 g/dL 04/22/2025 4:21 AM T [facility] HEMATOCRIT 38.4(L) 41.0 - 53.0 % 04/22/2025 4:21 AM T [facility] MCV 98.2 84.0 - 103.0 fL 04/22/2025 4:21 AM T [facility] MCH 33.0 27.0 - 34.0 pg 04/22/2025 4:21 AM CDT [facility] MCHC 33.6 30.0 - 35.0 g/dL 04/22/2025 4:21 AM CDT [facility] PLATELETS 137(L) 140 - 440 K/uL 04/22/2025 4:21 AM CDT [facility] MPV 11.6 8.9 - 12.8 fL 04/22/2025 4:21 AM CDT [facility] RDW 14.0 11.0 - 14.5 % 04/22/2025 4:21 AM T [facility] RDW-STDEV 51.3 37.0 - 54.0 fL 04/22/2025 4:21 AM T [facility] Blood Venipuncture / Unknown 04/22/2025 3:16 AM CDT 04/22/2025 4:09 AM CDT Divya Lester MD HEMATOLOGY ORDERABLES Final Result [facility] CLIA # [id number] [address] [place] [address] * (ABNORMAL) BASIC METABOLIC PANEL (04/22/2025 3:16 AM CDT) Only the most recent of4 resultswithin the time period is included. SODIUM 135(L) 136 - 145 mmol/L 04/22/2025 4:51 AM CDT [facility] POTASSIUM 4.1 3.5 - 5.1 mmol/L 04/22/2025 4:51 AM CDT [facility] CHLORIDE 100 98 - 107 mmol/L 04/22/2025 4:51 AM CDT [facility] CO2 22 22 - 29 mmol/L 04/22/2025 4:51 AM CDT [facility] CALCIUM 8.7(L) 8.8 - 10.2 mg/dL 04/22/2025 4:51 AM CDT [facility] BUN 35(H) 8 - 23 mg/dL 04/22/2025 4:51 AM CDT [facility] CREATININE 1.54(H) 0.67 - 1.17 mg/dL 04/22/2025 4:51 AM CDT [facility] Comment:The GFR result is no t clinically significant on patients <18 or >70 years of age. GLUCOSE 91 74 - 99 mg/dL 04/22/2025 4:51 AM CDT [facility] GFR 46 mL/min/1. 73 sq meter 04/22/2025 4:51 AM CDT [facility] Comment:eGFR calculated with 2020 CKD-EPI equation. Vegetarian diet, extremely high or low muscle mass, and may affect results. Cystatin C with Glomerular Filtration Rate is a suitable alternative for these patients. ANION GAP 13 9 - 20 mmol/L 04/22/2025 4:51 AM CDT [facility] Blood Venipuncture / Unknown 04/22/2025 3:16 AM CDT 04/22/2025 4:09 AM CDT Divya Lester MD CHEMISTRY ORDERABLES Final Result Performing Organization Address City/State/[facility] Co de Phone Number [facility] CLIA # [id number] [address] [place] [address] * LEGIONELLA ANTIGEN, URINE (04/21/2025 8:05 PM CDT) LEGIONELLA AG, URINE NOT DETECTED Not Detected 04/21/2025 9:15 PM CDT [facility] Urine URINE SPECIMEN OBTAINED BY CLEAN CATCH PROCEDURE / Unknown Collection / Unknown 04/21/2025 8:05 PM CDT 04/21/2025 8:14 PM CDT Narrative [facility] - 04/21/2025 9:15 PM CDT This test will not detect infections caused by Legionella species other than L. pneumophila serogroup 1. A negative antigen result does not exclude infection with L. pneumophila serogroup 1. Culture is recommended for suspected pneumoniae to detect causative agents other than L. pneumophila serogroup 1 and to recover L. pneumophila serogroup 1 when antigen is not detected in urine. Shahla A Call SKOOG OPERATOR MICROBIOLOGY - GENERAL ORDERABLE S Final Result Performing Organization Address [facility] Co de Phone Number [facility] CLIA # [id number] [facility] [address] * STREPTOCOCCUS PNEUMONIAE ANTIGEN (04/21/2025 8:05 PM CDT) Pathologist [facility] STREPTOCOCCUS PNEUMONIAE AG NOT DETECTED Not Detected 04/21/2025 9:16 PM CDT [facility] Urine URINE SPECIMEN OBTAINED BY CLEAN CATCH PROCEDURE / Unknown Collection / Unknown 04/21/2025 8:05 PM CDT 04/21/2025 8:14 PM CDT Shahla A Call SKOOG OPERATOR MICROBIOLOGY - GENERAL ORDERABLE S Final Result Performing Organization Address [facility] Co de Phone Number [facility] CLIA # [id number] [facility] [address] * (ABNORMAL) PROCALCITONIN (04/21/2025 4:23 PM CDT) Pathologist [facility] PROCALCITONIN 0.24(H) <=0.08 ng/mL 04/21/2025 5:38 PM CDT [facility] Blood Venipuncture / Unknown 04/21/2025 4:23 PM CDT 04/21/2025 4:38 PM CDT Narrative [facility] - 04/21/2025 5:38 PM CDT The utility of procalcitonin is limited/NOT recommended in certain populations (e.g. newborns, dialysis/ESRD, patients with recent major surgery/trauma/nayak, liver cirrhosis, viral hepatitis, certain cancers, etc.). Procalcitonin levels MUST be interpreted in the context of the patient's clinical condition and CANNOT be solely relied upon for diagnosis of infection. <0.25 ng/mL: Bacterial infection unlikely, particularly lower respiratory tract infections. <0.5 ng/mL: Low risk for progression to severe sepsis/septic shock. Localized infection possible. Measurements done early (<6 hours) after systemic process starts may still be low. 0.5-2 ng/mL: Moderate risk for progression to severe sepsis/septic shock. >2 ng/mL: High risk for progression to severe sepsis/septic shock. If antibiotics ARE administered, repeat testing is recommended every 2-3 days to help guide antibiotic cessation. Once a decrease of 80% or more has occurred from baseline, discontinuation of antibiotics should strongly be considered in clinically stable patients. Procalcitonin is produced in the setting of systemic inflammation, particularly bacterial infections. It is detectable within 2-4 hours and peaks within 6-24 hours. us Shahla A Call SKOOG OPERATOR CHEMISTRY ORDERABLES Final Resul t [facility] Private Practice [facility] CLIA # [id number] [address] [place] [address] * (ABNORMAL) BRAIN NATRIURETIC PEPTIDE, BNP OR PROBNP (04/21/2025 1:45 PM CDT) PROBNP, N TERMINAL 905(H) 0 - 450 pg/mL 04/21/2025 4:17 PM CDT [facility] Private Practice [facility] Comment: INTERPRETIVE COMMENT based on diagnosis: Diagnostic NT pro-BNP cutoffs for Heart Failure in the absence of renal failure is suggested for the following ranges <75 years: <125 pg/mL >=75 years: <450 pg/mL Exclusionary rule out cut-point for Acute Decompensated Heart Failure(ADHF) All ages: <300 pg/mL Diagnostic NT pro-BNP cutoffs for Acute Decompensated Heart Failure(ADHF) in the absence of renal failure is suggested for the following ages <50 years: > 450 pg/mL 50-75 years: > 900 pg/mL >75 years: >1800 pg/mL Blood Venipuncture / Unknown 04/21/2025 1:45 PM CDT 04/21/2025 2:20 PM CDT us Shahla Bell NP CHEMISTRY ORDERABLES Final Resul t Performing Organization Address [facility] Co de Phone Number [facility] Private Practice [facility] CLIA # [id number] [address] [address] [place] [address] * (ABNORMAL) MAGNESIUM LEVEL (04/21/2025 5:36 AM CDT) Only the most recent of2 resultswithin the time period is included. MAGNESIUM 2.8(H) 1.6 - 2.4 mg/dL 04/21/2025 6:24 AM CDT [facility] Private Practice [facility] Blood Venipuncture / Unknown 04/21/2025 5:36 AM CDT 04/21/2025 5:48 AM CDT us Divya Lester MD CHEMISTRY ORDERABLES Final Result Performing Organization Address [facility] de Phone Number [facility] Private Practice [facility] CLIA # [id number] [address] [address] [place] [address] * EXTRA TUBE (URINE WESLEY) (04/20/2025 4:20 PM CDT) Urine URINE SPECIMEN OBTAINED BY CLEAN CATCH PROCEDURE / Unknown Collection / Unknown 04/20/2025 4:20 PM CDT 04/20/2025 4:38 PM CDT us Neal LIVE URINE ORDERABLES Final Result Performing Organization Address [facility] Co de Phone Number [facility] Private Practice [facility] CLIA # [id number] [address] [place] [address] * (ABNORMAL) URINALYSIS WITH REFLEX MICROSCOPIC (04/20/2025 4:20 PM CDT) COLOR UA Yellow Pale to Dark Yellow 04/20/2025 4:57 PM CDT [facility] CLARITY UA Clear Clear 04/20/2025 4:57 PM CDT [facility] SPECIFIC GRAVITY UA 1.015 1.003 - 1.035 04/20/2025 4:57 PM CDT [facility] PH UA 5.5 5.0 - 8.0 04/20/2025 4:57 PM CDT [facility] LEUKOCYTE ESTERASE UA Negative Negative 04/20/2025 4:57 PM CDT [facility] NITRITE UA Negative Negative 04/20/2025 4:57 PM CDT [facility] PROTEIN UA 2+(A) Negative 04/20/2025 4:57 PM CDT [facility] GLUCOSE UA 2+(A) Negative 04/20/2025 4:57 PM CDT [facility] KETONES UA Negative Negative 04/20/2025 4:57 PM CDT [facility] UROBILINOGEN UA 0.2 <2.0 mg/dL 4:57 PM CDT [facility] BILIRUBIN UA Negative Negative 04/20/2025 4:57 PM CDT [facility] BLOOD UA Negative Negative 04/20/2025 4:57 PM CDT [facility] WBC UA 0-2 0 - 2 /hpf 04/20/2025 4:57 PM CDT [facility] RBC UA 0-2 0 - 2 /hpf 04/20/2025 4:57 PM CDT [facility] BACTERIA UA 1+(A) Negative /hpf 04/20/2025 4:57 PM CDT [facility] EPITHELIAL CELLS, URINE 0-5 0 - 5 /hpf 04/20/2025 4:57 PM CDT [facility] Urine URINE SPECIMEN OBTAINED BY CLEAN CATCH PROCEDURE / Unknown Collection / Unknown 04/20/2025 4:20 PM CDT 04/20/2025 4:38 PM CDT us Neal LIVE URINE ORDERABLES Final Result Performing Organization Address [facility]/ZIP Co de Phone Number [facility] CLIA # [id number] [address] [address] [place] [address] * (ABNORMAL) TROPONIN 6 HR, 5TH GEN (04/20/2025 4:19 PM CDT) TROPONIN T, 6 HR 5TH GEN 23(H) <=15 ng/L 04/20/2025 5:11 PM CDT [facility] DELTA 6HR TROPONIN T 1 See Interp. 04/20/2025 5:11 PM CDT [facility] Private Practice [facility] Blood Venipuncture / Unknown 04/20/2025 4:19 PM CDT 04/20/2025 4:39 PM CDT [facility] Private Practice [facility] - 04/20/2025 5:11 PM CDT Troponin elevated. Delta indeterminate. Delay in collection of timed specimen beyond recommended collection interval. Results must be interpreted in clinical context. us Neal LIVE CHEMISTRY ORDERABLES Final Re sult Performing Organization Address [facility] Co de Phone Number [facility] Private Practice [facility] CLIA # [id number] [address] [id number] * (ABNORMAL) TROPONIN 2 HR, 5TH GEN (04/20/2025 2:58 PM CDT) TROPONIN T, 2 HR 5TH GEN 21(H) <=15 ng/L 04/20/2025 3:37 PM CDT [facility] DELTA 2HR TROPONIN T -1 See Interp. 04/20/2025 3:37 PM CDT [facility] Blood Venipuncture / Unknown 04/20/2025 2:58 PM CDT 04/20/2025 3:04 PM CDT Narrative [facility] - 04/20/2025 3:37 PM CDT Troponin elevated. Delta not changing. Delay in collection of timed specimen beyond recommended collection interval. Results must be interpreted in clinical context. us Neal LIVE CHEMISTRY ORDERABLES Final Re sult Performing Organization Address [facility] Co de Phone Number [facility] CLIA # [id number] [address] [address] [place], [place] [address] * RESPIRATORY PATHOGEN PCR PANEL (04/20/2025 2:57 PM CDT) Pathologist [facility] Respiratory Pathogen PCR Panel NOT DETECTED No respiratory pathogen nucleic acids detected. 04/20/2025 3:55 PM CDT [facility] COVID-19 PCR NOT DETECTED Not Detected 04/20/2025 3:55 PM CDT [facility] Upper Respiratory ENTIRE NASOPHARYNX / Unknown Collection / Unknown 04/20/2025 2:57 PM CDT 04/20/2025 3:01 PM CDT [facility] - 04/20/2025 3:55 PM CDT The Film Array Respiratory Panel (RP2.1) is a multiplex nucleic acid detection test for 22 targets. Viruses: Adenovirus Coronavirus HKU1, NL63, 229E, and OC43 COVID-19/Severe Acute Respiratory Syndrome Coronavirus 2 Influenza A with the following subtypes: H1, H1-2009, and H3 Influenza B Human Metapneumovirus Parainfluenza virus 1, 2, 3, and 4 Respiratory Syncytial virus (RSV) Rhinovirus/Enterovirus (cannot differentiate due to genetic similarities) Bacteria: Bordetella pertussis Bordetella parapertussis Chlamydophila pneumoniae Mycoplasma pneumoniae us Marques Mcleod DO MICROBIOLOGY - GENERAL ORDERA BLES Final Result Performing Organization Address [facility] Co de Phone Number [facility] CLIA # [id number] [address] [place] [address] * CTA CHEST W AND/OR WO CONTRAST (04/20/2025 2:16 PM CDT) Anatomical Region Laterality Modality Chest Computed Tomogra phy 04/20/2025 2:06 PM CDT Impressions 04/20/2025 2:31 PM CDT IMPRESSION: Please see below. Exam: CTA CHEST W AND/OR WO CONTRAST Date/Time of Exam: 04/20/2025 2:16 PM Reason For Exam: Pulmonary embolism (PE) suspected, high prob. Diagnosis: See Reason for Exam. Technique: CTA of the chest was performed prior to and/or following the administration of intravenous contrast. Post-processing was performed, including sagittal and coronal reformations and 3-D reconstruction. Contrast (if used): 85 mL Isovue 300 Findings: Comparison from 03/17/2025 and 08/11/2015. There is no pneumothorax. The right upper lobe is clear. There is mild atelectasis in the right middle lobe. There is a tiny calcified right lower lobe granuloma. There is mild to moderate airspace opacity and groundglass opacity in the posterior aspect of the right lower lobe. The left upper lobe is clear. There is mild streaky opacity in the left lower lobe most consistent with scarring. No pathologic axillary, mediastinal or hilar mass or adenopathy is noted. No mediastinal fluid collections are noted. There is a left subclavian pacemaker with right atrial, right ventricular and coronary sinus leads. The ascending thoracic aorta is mildly dilated measuring 4.0 cm in diameter. No acute abnormality of the thoracic aorta is appreciated. The pulmonary arteries are adequately opacified with contrast. 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 No filling defects consistent with pulmonary emboli are noted on the left. There is mild cardiomegaly. No right heart strain is appreciated. Limited images of the upper abdomen are remarkable only for surgical absence of the gallbladder. No concerning bony abnormality is noted. IMPRESSION: 1. 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 No right heart strain is noted. 2. There are groundglass and airspace opacities in the right lower lobe that may be secondary to atelectasis, pneumonia or infarction. 3. Triple lead left subclavian pacemaker. 4. Mild dilatation of the ascending thoracic aorta with a diameter of 4.0 cm. 5. Prior cholecystectomy. The findings and/or imaging diagnoses in the above impression have been deemed a critical result by the interpreting radiologist and immediately reported as such to the ordering physician or appropriate licensed caregiver in accordance with current radiology department policy. Narrative Procedure Note Fe Randall MD - 04/20/2025 IMPRESSION: Please see below. Exam: CTA CHEST W AND/OR WO CONTRAST Date/Time of Exam: 04/20/2025 2:16 PM Reason For Exam: Pulmonary embolism (PE) suspected, high prob. Diagnosis: See Reason for Exam. Technique: CTA of the chest was performed prior to and/or following the administration of intravenous contrast. Post-processing was performed, including sagittal and coronal reformations and 3-D reconstruction. Contrast (if used): 85 mL Isovue 300 Findings: Comparison from 03/17/2025 and 08/11/2015. There is no pneumothorax. The right upper lobe is clear. There is mild atelectasis in the right middle lobe. There is a tiny calcified right lower lobe granuloma. There is mild to moderate airspace opacity and groundglass opacity in the posterior aspect of the right lower lobe. The left upper lobe is clear. There is mild streaky opacity in the left lower lobe most consistent with scarring. No pathologic axillary, mediastinal or hilar mass or adenopathy is noted. No mediastinal fluid collections are noted. There is a left subclavian pacemaker with right atrial, right ventricular and coronary sinus leads. The ascending thoracic aorta is mildly dilated measuring 4.0 cm in diameter. No acute abnormality of the thoracic aorta is appreciated. The pulmonary arteries are adequately opacified with contrast. 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 No filling defects consistent with pulmonary emboli are noted on the left. There is mild cardiomegaly. No right heart strain is appreciated. Limited images of the upper abdomen are remarkable only for surgical absence of the gallbladder. No concerning bony abnormality is noted. IMPRESSION: 1. 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 No right heart strain is noted. 2. There are groundglass and airspace opacities in the right lower lobe that may be secondary to atelectasis, pneumonia or infarction. 3. Triple lead left subclavian pacemaker. 4. Mild dilatation of the ascending thoracic aorta with a diameter of 4.0 cm. 5. Prior cholecystectomy. The findings and/or imaging diagnoses in the above impression have been deemed a critical result by the interpreting radiologist and immediately reported as such to the ordering physician or appropriate licensed caregiver in accordance with current radiology department policy. Marques Mcleod DO CT ORDERABLES Final Result * (ABNORMAL) CBC WITH DIFFERENTIAL (04/20/2025 1:35 PM CDT) Only the most recent of2 resultswithin the time period is included. WBC 11.8(H) 4.8 - 10.8 K/uL 04/20/2025 1:55 PM CDT [facility] RBC 4.61 4.60 - 6.20 M/uL 04/20/2025 1:55 PM CDT [facility] HEMOGLOBIN 14.9 14.0 - 18.0 g/dL 04/20/2025 1:55 PM CDT [facility] HEMATOCRIT 44.8 41.0 - 53.0 % 04/20/2025 1:55 PM CDT [facility] MCV 97.2 84.0 - 103.0 fL 04/20/2025 1:55 PM CDT [facility] MCH 32.3 27.0 - 34.0 pg 04/20/2025 1:55 PM CDT [facility] MCHC 33.3 30.0 - 35.0 g/dL 04/20/2025 1:55 PM CDT [facility] PLATELETS 131(L) 140 - 440 K/uL 04/20/2025 1:55 PM CDT [facility] MPV 10.4 8.9 - 12.8 fL 04/20/2025 1:55 PM CDT [facility] RDW 14.0 11.0 - 14.5 % 04/20/2025 1:55 PM [facility] RDW-STDEV 49.9 37.0 - 54.0 fL 04/20/2025 1:55 PM [facility] NEUTROPHILS 76(H) 42 - 75 % 04/20/2025 1:55 PM [facility] LYMPHOCYTES 10(L) 24 - 44 % 04/20/2025 1:55 PM [facility] MONOCYTES 13(H) 2 - 10 % 04/20/2025 1:55 PM [facility] EOSINOPHILS 0 0 - 7 % 04/20/2025 1:55 PM [facility] BASOPHILS 0 0 - 1 % 04/20/2025 1:55 PM [facility] IMMATURE GRANULOCYTES 0 0 - 2 % 04/20/2025 1:55 PM [facility] NEUTROPHIL ABSOLUTE 8.98(H) 2.00 - 8.00 K/uL 04/20/2025 1:55 PM [facility] LYMPHOCYTE ABSOLUTE 1.23 1.20 - 4.00 K/uL 04/20/2025 1:55 PM [facility] MONOCYTE ABSOLUTE 1.49(H) 0.10 - 0.60 K/uL 04/20/2025 1:55 PM [facility] EOSINOPHIL ABSOLUTE 0.03 0.00 - 0.70 K/uL 04/20/2025 1:55 PM [facility] BASOPHILS ABSOLUTE 0.05 0.00 - 0.20 K/uL 04/20/2025 1:55 PM [facility] IMMATURE GRANULOCYTES ABSOLUTE 0.05 0.00 - 0.10 K/uL 04/20/2025 1:55 PM [facility] SMEAR REVIEWED: NN - No Action Needed 04/20/2025 1:55 PM [facility] Blood Venipuncture / Unknown 04/20/2025 1:35 PM CDT 04/20/2025 1:45 PM CDT us Neal LIVE HEMATOLOGY ORDERABLES Final R esult Performing Organization Address City/[facility]/ZIP Co de Phone Number [facility] CLIA # [id number] [address] [place] [address] * BLOOD CULTURE (04/20/2025 1:33 PM CDT) Only the most recent of2 resultswithin the time period is included. BLOOD CULTURE No growth 04/25/2025 3:03 PM CDT [facility] Blood (Peripheral) Venipuncture / Unknown 04/20/2025 1:33 PM CDT 04/20/2025 1:39 PM CDT Marques Mcleod DO MICROBIOLOGY - GENERAL ORDERA BLES Final Result Performing Organization Address [facility] Co de Phone Number [facility] Private Practice [facility] CLIA # [id number] [address] [place] [address] * XR CHEST PA OR AP 1 VW (04/20/2025 12:30 PM CDT) Only the most recent of2 resultswithin the time period is included. Anatomical Region Laterality Modality Chest Computed Radiogr aphy 04/20/2025 12:3 0 PM CDT Impressions 04/20/2025 2:32 PM CDT IMPRESSION: 1. Mild left basilar atelectasis or consolidation. Possible pneumonia. 2. Cardiomegaly. Narrative 04/20/2025 2:32 PM CDT EXAM: XR CHEST PA OR AP 1 VW DIAGNOSIS/REASON FOR EXAM: Chest Pain. DATE AND TIME: 04/20/2025, 12:30 PM. COMPARISON: Chest x-ray obtained on 04/14/2025. TECHNIQUE: Upright AP view of the chest. FINDINGS: The cardiac silhouette is enlarged. The left costophrenic angle is mildly blunted. No pneumothorax is identified. There are mild degenerative changes of the thoracic spine. A dual lead cardiac pacing device is implanted in the left anterior chest wall. Procedure Note Harmeet Gibbs MD - 04/20/2025 EXAM: XR CHEST PA OR AP 1 VW DIAGNOSIS/REASON FOR EXAM: Chest Pain. DATE AND TIME: 04/20/2025, 12:30 PM. COMPARISON: Chest x-ray obtained on 04/14/2025. TECHNIQUE: Upright AP view of the chest. FINDINGS: The cardiac silhouette is enlarged. The left costophrenic angle is mildly blunted. No pneumothorax is identified. There are mild degenerative changes of the thoracic spine. A dual lead cardiac pacing device is implanted in the left anterior chest wall. IMPRESSION: 1. Mild left basilar atelectasis or consolidation. Possible pneumonia. 2. Cardiomegaly. Neal LIVE DIAGNOSTIC IMAGING ORDERABLES Final Result * EXTRA TUBE (GREEN) (04/20/2025 12:17 PM CDT) Blood Venipuncture / Unknown 04/20/2025 12:17 PM CDT 04/20/2025 1:30 PM CDT External Provider [facility] CHEMISTRY ORDERABLES Final Result [facility] Private Practice [facility] CLIA # [id number] [address] [place] [address] [place] [address] * (ABNORMAL) TROPONIN BASELINE, 5TH GEN (04/20/2025 12:17 PM CDT) TROPONIN T, BASELINE 5TH GEN 22(H) <=15 ng/L 04/20/2025 1:46 PM CDT [facility] Private Practice [facility] Blood Venipuncture / Unknown 04/20/2025 12:17 PM CDT 04/20/2025 1:14 PM CDT Narrative [facility] Private Practice [facility] - 04/20/2025 1:46 PM CDT Troponin elevated. Neal LIVE CHEMISTRY ORDERABLES Final Re sult Performing Organization Address [facility] Co de Phone Number [facility] CLIA # [id number] [address] [address] * LIPASE (04/20/2025 12:17 PM CDT) LIPASE 28 13 - 60 U/L 04/20/2025 1:48 PM CDT [facility] Blood Venipuncture / Unknown 04/20/2025 12:17 PM CDT 04/20/2025 1:14 PM CDT Neal LIVE CHEMISTRY ORDERABLES Final Re [facility] Performing Organization Address [facility] de Phone Number [facility] CLIA # [id number] [address] [place] [address] * (ABNORMAL) COMPREHENSIVE METABOLIC PANEL (04/20/2025 12:17 PM CDT) SODIUM 138 136 - 145 mmol/L 04/20/2025 1:52 PM CDT [facility] POTASSIUM 4.5 3.5 - 5.1 mmol/L 04/20/2025 1:52 PM CDT [facility] CHLORIDE 97(L) 98 - 107 mmol/L 04/20/2025 1:52 PM CDT [facility] CO2 25 22 - 29 mmol/L 04/20/2025 1:52 PM CDT [facility] CALCIUM 10.0 8.8 - 10.2 mg/dL 04/20/2025 1:52 PM CDT [facility] BUN 30(H) 8 - 23 mg/dL 04/20/2025 1:52 PM CDT [facility] CREATININE 1.55(H) 0.67 - 1.17 mg/dL 04/20/2025 1:52 PM CDT [facility] Comment:The GFR result is no t clinically significant on patients <18 or >70 years of age. GLUCOSE 94 74 - 99 mg/dL 04/20/2025 1:52 PM CDT [facility] TOTAL PROTEIN 7.6 6.4 - 8.3 g/dL 04/20/2025 1:52 PM CDT [facility] ALBUMIN 4.2 3.5 - 5.2 g/dL 04/20/2025 1:52 PM CDT [facility] BILIRUBIN TOTAL 1.5(H) 0.0 - 1.0 mg/dL 04/20/2025 1:52 PM CDT [facility] ALKALINE PHOSPHATASE 101 40 - 129 U/L 04/20/2025 1:52 PM CDT [facility] AST 25 10 - 50 U/L 04/20/2025 1:52 PM CDT [facility] ALT 20 <=50 U/L 04/20/2025 1:52 PM CDT [facility] GFR 45 mL/min/1. 73 sq meter 04/20/2025 1:52 PM CDT [facility] Comment:eGFR calculated with 2020 CKD-EPI equation. Vegetarian diet, extremely high or low muscle mass, and may affect results. Cystatin C with Glomerular Filtration Rate is a suitable alternative for these patients. ANION GAP 16 9 - 20 mmol/L 04/20/2025 1:52 PM T [facility] Blood Venipuncture / Unknown 04/20/2025 12:17 PM CDT 04/20/2025 1:14 PM CDT us Neal LIVE CHEMISTRY ORDERABLES Final Re sult [facility] CLIA # [id number] [address] [place] [address] * EKG 12-LEAD (04/20/2025 11:26 AM CDT) Only the most recent of3 resultswithin the time period is included. 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1945 Requested By: Order Number: [id number] Reading MD: Bert Butler Measurements Intervals [place] Rate: 114 P: 0 IA: 0 QRS: -89 QRSD: 146 T: 83 QT: 394 QTc: 543 Interpretive Statements Ventricular-paced rhythm Biventricular pacemaker detected Abnormal ECG Electronically Signed On 04-20-2025 20:44:16 CDT by Bert Butler Procedure Note Bert Butler MD - 04/20/[address] [address] Test Date: 2025-04-20 Pat Name: ROBERTO HARDEN Department: 11 Room: 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: [id number] : 1945 Requested By: Order Number: [id number] Reading : Bert Butler Measurements Intervals [place] Rate: 114 P: 0 IA: 0 QRS: -89 QRSD: 146 T: 83 QT: 394 QTc: 543 Interpretive Statements Ventricular-paced rhythm Biventricular pacemaker detected Abnormal ECG Electronically Signed On 04-20-2025 20:44:16 CDT by Bert Butler us Marques Mcloed DO ECG ORDERABLES Final Result INTERFACE SYSTEM Refer to clinic/hospital department * Critical Care (04/20/2025 11:22 AM CDT) Narrative Marques Mcleod DO - 04/20/2025 11:22 AM CDT Marques Mcleod DO 04/22/2025 9:50 PM Critical Care Performed by: Marques Mcleod DO Authorized by: Marques Mcleod DO Critical care provider statement: Critical care time (minutes): 35 Critical care was necessary to treat or prevent imminent or life-threatening deterioration of the following conditions: Cardiac failure and circulatory failure Critical care was time spent personally by me on the following activities: Discussions with primary provider, examination of patient, ordering and review of radiographic studies, ordering and review of laboratory studies, ordering and performing treatments and interventions, re-evaluation of patient's condition, review of old charts and obtaining history from patient or surrogate us Marques Mcleod DO PROCEDURE/MINOR SURGICAL ORDE ESVIN Final Result * XR CHEST PA AND LATERAL 2 VW (04/14/2025 1:51 PM CDT) Anatomical Region Laterality Modality Chest Computed Radiogr aphy 04/14/2025 1:51 PM CDT Impressions 04/14/2025 1:56 PM CDT IMPRESSION: Please see below. Exam: XR CHEST PA AND LATERAL 2 VW Date/Time of Exam: 04/14/2025 1:51 PM Reason For Exam: Line Placement. Diagnosis: Cardiac pacemaker in situ; Atrial fibrillation (CMS/HCC); Atrial flutter (CMS/HCC); Sinoatrial node dysfunction (CMS/HCC); NICM (nonischemic cardiomyopathy) (CMS/HCC); Atrial fibrillation, unspecified type (CMS/HCC); Atrial flutter, unspecified type (CMS/HCC). Findings: Comparison to 04/14/2025. Cardiac pacer and pacer leads present. Stable enlarged cardiac silhouette. No consolidating airspace disease. No pleural effusion or pneumothorax. No acute pathology of imaged skeleton. Narrative Procedure Note Dean Thakur MD - 04/14/2025 IMPRESSION: Please see below. Exam: XR CHEST PA AND LATERAL 2 VW Date/Time of Exam: 04/14/2025 1:51 PM Reason For Exam: Line Placement. Diagnosis: Cardiac pacemaker in situ; Atrial fibrillation (CMS/HCC); Atrial flutter (CMS/HCC); Sinoatrial node dysfunction (CMS/HCC); NICM (nonischemic cardiomyopathy) (CMS/HCC); Atrial fibrillation, unspecified type (CMS/HCC); Atrial flutter, unspecified type (CMS/HCC). Findings: Comparison to 04/14/2025. Cardiac pacer and pacer leads present. Stable enlarged cardiac silhouette. No consolidating airspace disease. No pleural effusion or pneumothorax. No acute pathology of imaged skeleton. us Amee Hare MD DIAGNOSTIC IMAGING ORDERABLE S Final Result * PACEMAKER UPGRADE TO BIVENTRICULAR PACEMAKER W ANES (04/14/2025 11:18 AM CDT) Narrative [facility] - 04/14/2025 2:45 PM CDT Procedure Details [facility] Clinical Cardiac Electrophysiology Device Report Procedures: 1. CRTP Upgrade , placement of new LV lead and implantation of new CRTP generator 2. Pocket revision 3. Contrast Venography 4. Device Interrogation 5. Fluoroscopy with Interpretation Procedure Description: After the patient was informed and consented in regards to the risks, benefits, and alternatives to the procedure, the patient was brought to the EP lab in a fasting, non-sedated state. Contrast injection of the left subclavian vein was performed, which was patent . After appropriate antiseptic prep and with germain-operative antibiotics infusing and using local anesthesia, cutdown to the deltopectoral fascia was performed using blunt dissection and electrocautery to find the pocket. A subcutaneous pocket revised in order to filt the bigger CRTP can. Next, access was obtained via the left subclavian stephanie. A sheath was passed into the heart over a Granville wire. This was used to cannulate the coronary sinus. The system was then advanced into the coronary sinus and the wire was subsequently removed. A balloontipped catheter was used for contrast venography , outlining the main body of the coronary sinus and its branches. A posterolateral branch was found and the LV lead was placed in said vein. The sheath was then removed and the lead was secured with ethabond.. The pocket was irrigated with antibiotic/saline solution. The pacing parameters were tested as described below. The old leads did not a lot of lead in the pocket (mostly it was capsulated). Blunt dissection was performed with caution given these leads are >25 yrs old . he generator was placed in the pocket header down ,as that was the most natural angle for the old lead . The pocket was closed with multiple layers of absorbable suture and skin glue was applied, sterile dressing were applied. 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 Pocket revision . 2. No complications 3. EBL 10 ml Instructions : ## Xray, ekg and device interrogation to be reviewed in am #1 oral antibiotics for 5 days -prefer keflex 500 tid or doxycycline 100 bid for 5 days #2 no water in the surgical area for next 7 days, can take a scrub bath elsewhere #3 use sling for 7 days consistently in the left arm, after that mandatory during sleep and at night for 30 days, no motion of the left arm beyond 90 degrees at the shoulder. #4 follow-up in EP wound clinic in 2 weeks and EP clinic with me in 3 months. #5 cardiac rehab cx, okay to remove okay to remove dressing #6 avoid anticoagulants and all heparin products for 3 days post procedure. us Amee Hare MD CUP EP ORDERABLES Final Resu lt [facility] [id number] [address] [facility] [address] [place] [address], [place] [phone] * PROTIME-INR (04/14/2025 7:08 AM CDT) PROTIME 13.8 12.7 - 14.9 Seconds 04/14/2025 7:27 AM CDT [facility] INR 1.0 0.8 - 1.2 04/14/2025 7:27 AM CDT [facility] Blood BLOOD SPECIMEN / Unknown Venipuncture / Unknown 04/14/2025 7:08 AM CDT 04/14/2025 7:10 AM CDT Narrative [facility] - 04/14/2025 7:27 AM CDT Expected Values for INR: DVT/PE Goal INR 2.5; range 2.0 - 3.0 Valve Replacement Tissue Goal INR 2.5; range 2.0 - 3.0 Valve Replacement Mechanical Goal INR 3.0; range 2.5 - 3.5 POST-MT Goal INR 2.5; range 2.0 - 3.0 or Goal INR 3.0; range 2.5 - 3.5 Atrial Fibrillation Goal INR 2.5; range 2.0 - 3.0 Ischemic Stroke Goal INR 2.5; range 2.0 - 3.0 us Amee Hare MD HEMATOLOGY ORDERABLES Final Result [facility] CLIA # [id number] [facility] [address] * ECHOCARDIOGRAM W/ CONTRAST AGENT (03/29/2025 8:44 AM CDT) EJECTION FRACTION 40 INTERFACE SYSTEM 03/29/2025 7:51 AM CDT Narrative INTERFACE SYSTEM - 03/30/2025 8:04 AM CDT [facility] Cardiovascular Services Echocardiography Laboratory [address] [place] [address] Transthoracic Echocardiography Patient: Roberto Harden Study ECHO TERESA Quintana ID: Gender: M : 1945 Age: 79 Room: [facility] Study 03/29/2025 Pt Outpatient Date: Status: Study 07:51:20 AM CSN #: [id number] Time: Ordering:Zia Mata Franchise Sales Manager: Eve Monte [facility] Indications and History: Nonischemic cardiomyopathy (CMS/HCC) [I42.8 (ICD-10-CM)]; SSS (sick sinus syndrome) (CMS/HCC) [I49.5 (ICD-10-CM)]; SOBOE (shortness of breath on exertion) [R06.02 (ICD-10-CM)]. Labs, prior tests, procedures, and surgery: Transthoracic echocardiogram (08/31/2021). EF was 37%. Permanent pacemaker system implantation. Summary and Conclusion: - Left ventricle: The cavity size is normal. Wall thickness is at the upper limits of normal. Global systolic function is moderately reduced. The estimated ejection fraction is 35-40%. For Epic reporting: the left ventricular ejection fraction is 40% by visual assessment. There is diffuse hypokinesis which appears worse at the apex. Regional wall motion difficult to determine despite echo contrast. Interventricular septum shows dyssynergy, consistent with previous thoracotomy, conduction delay or RV pacing. Findings consistent with left ventricular diastolic dysfunction. The longitudinal strain is -7.3% (Normal range is -18 to -25). - Right ventricle: Not well visualized. Pacer wire or catheter noted in right ventricle. Systolic function is difficult to assess and probably normal. Systolic pressure is within the normal range. The estimated peak pressure is 33mm Hg. - Left atrium: Not well visualized. The atrium is dilated. - Aortic valve: The valve is trileaflet. The leaflets are mildly calcified. There is no stenosis. - Tricuspid valve: There is mild regurgitation. - Aortic root: The root is mildly dilated and 42.0mm diameter. - Ascending aorta: The vessel is mildly dilated and 41.0mm diameter. Impressions: Technically difficult study. Comparison: Prior Study Date: 08/31/2021. Procedure information: Comparison is made to the study of August 2021. Study status: Routine. Procedure: Intravenous access was obtained. A transthoracic echocardiogram was performed. Image quality was adequate. The study was technically limited due to poor acoustic window availability and irregular rhythm. Scanning was performed from the parasternal, apical, subcostal, and suprasternal notch acoustic windows. Intravenous contrast (Definity) was administered. There were no complications. There were no contrast reactions. Contrast study performed to evaluate left ventricular endocardial borders due to suboptimal non-contrast images. Study components: M-mode, 2D, complete spectral Doppler, and color Doppler. Height: 177.8cm. Height: 70in. Weight: 102.5kg. Weight: 226lb. BMI: 32.4kg/m^2. BSA: 2.28m^2. Blood pressure: 103/66 Study date: 03/29/2025. Study time: 07:51 AM. Location: Echo laboratory. Cardiac Anatomy: LEFT VENTRICLE: The cavity size is normal. Wall thickness is at the upper limits of normal. Global systolic function is moderately reduced. The estimated ejection fraction is 35-40%. For Epic reporting: the left ventricular ejection fraction is 40% by visual assessment. There is diffuse hypokinesis which appears worse at the apex. Regional wall motion difficult to determine despite echo contrast. Interventricular septum shows dyssynergy, consistent with previous thoracotomy, conduction delay or RV pacing. The longitudinal strain is -7.3% (Normal range is -18 to -25). Findings consistent with left ventricular diastolic dysfunction. RIGHT VENTRICLE: Not well visualized. Pacer wire or catheter noted in right ventricle. Systolic function is difficult to assess and probably normal. Systolic pressure is within the normal range. The estimated peak pressure is 33mm Hg. LEFT ATRIUM: Not well visualized. The atrium is dilated. RIGHT ATRIUM: The atrium is normal in size. ATRIAL SEPTUM: No obvious PFO or ASD identified by 2D imaging and color Doppler. AORTIC VALVE: The valve is trileaflet. The leaflets are mildly calcified. Mobility is not restricted. There is no stenosis. There is no significant regurgitation. MITRAL VALVE: Structurally normal valve. Mobility is not restricted. No evidence for prolapse. There is no evidence for stenosis. There is no significant regurgitation. TRICUSPID VALVE: Structurally normal valve. Mobility is unrestricted. There is no evidence for stenosis. There is mild regurgitation. PULMONIC VALVE: Not well visualized. The valve appears to be grossly normal. There is no evidence for stenosis. There is trace regurgitation. PERICARDIUM: There is no pericardial effusion. AORTA: Aortic root: The root is mildly dilated and 42.0mm diameter. Ascending aorta: The vessel is mildly dilated and 41.0mm diameter. Aortic arch: The vessel is not dilated. INTRACARDIAC MASS THROMBUS: No apparent intracavitary masses or thrombi detected. Measurements Left ventricle Value Right ventricle Value GLS, 2D -7.3 % ZOYA, LAX 3.1 cm ZOYA, LAX 4.2 cm TAPSE, MM 1.9 cm ESD, LAX 3.1 cm S' lateral 12.9 cm/sec ZOYA/bsa, LAX 1.8 cm/m^2 ESD/bsa, LAX 1.4 cm/m^2 Left atrium Value FS, LAX 26 % AP dim, ES 4.9 cm FS, LAX chord 26 % AP dim index, ES 2.1 cm/m^2 ESD major ax, A4C 6.9 cm SI dim, A4C 6.1 cm ESD/bsa major ax, A4C 3.0 cm/m^2 Area ES, A4C 28 cm^2 ZOYA minor ax, A4C 6.9 cm Vol, S 89 ml ZOYA/bsa minor ax, A4C 3.0 cm/m^2 Vol/bsa, S 39 ml/m^2 ZOYA major ax, A2C 8.3 cm Vol, ES, 1-p A4C 98 ml ESD major ax, A2C 7.1 cm Vol/bsa, ES, 1-p A4C 43 ml/m^2 ZOYA/bsa major ax, A2C 3.6 cm/m^2 Vol, ES, 1-p A2C 65 ml ESD/bsa major ax, A2C 3.1 cm/m^2 Vol/bsa, ES, 1-p A2C 29 ml/m^2 IVS, ED 1.1 cm Vol, ES, 2-p 83 ml ESD 3.1 cm Vol/bsa, ES, 2-p 36 ml/m^2 ESD/bsa 1.4 cm/m^2 Vol, ES, A/L 107 ml FS 26 % Vol/bsa, ES, A/L 47 ml/m^2 PW, ED 1.0 cm IVS/PW, ED 1.09 Right atrium Value EDV, 1-p A2C 100 ml Area, ES 19 cm^2 ESV, 1-p A2C 44 ml Area, ES, A4C 19 cm^2 EF, 1-p A2C 44 % EDV/bsa, 1-p A2C 44 ml/m^2 Aortic valve Value ESV/bsa, 1-p A2C 19 ml/m^2 Peak v, S 90 cm/sec EDV, 1-p A4C 86 ml Peak grad, S 3 mm Hg ESV, 1-p A4C 48 ml LVOT/AV, Vpeak ratio 0.58 EF, 1-p A4C 45 % SV, 1-p A4C 39 ml Tricuspid valve Value EDV/bsa, 1-p A4C 38 ml/m^2 TR peak v 261 cm/sec ESV/bsa, 1-p A4C 21 ml/m^2 Peak RV-RA grad, S 27 mm Hg SV/bsa, 1-p A4C 17 ml/m^2 EDV, 2-p 96 ml Aortic root Value ESV, 2-p 52 ml Root diam 4.2 cm EF, 2-p 45 % Root diam/bsa 1.8 cm/m^2 SV, 2-p 56 ml EDV/bsa, 2-p 42 ml/m^2 Ascending aorta Value ESV/bsa, 2-p 23 ml/m^2 AAo AP diam, S 4.1 cm SV/bsa, 2-p 24.7 ml/m^2 AAo AP diam/bsa, S 1.8 cm/m^2 LVOT Value Peak dorothea, S 52.4 cm/sec Peak grad, S 1 mm Hg Legend: (L) and (H) kait values outside specified reference range. [facility] Echo Labs are accredited with the Intersocietal Accreditation Commission - Echocardiography. Prepared and Electronically Authenticated Albino Merrill Confirmed 03/30/2025 08:03 Procedure Note Albino Merrill MD - 03/30/2025 [facility] Cardiovascular Services Echocardiography Laboratory [address] [place] [id number] Transthoracic Echocardiography Patient: Roberto Harden Study JULIANNA Quintana ID: Gender: Susan : 1945 Age: 79 Room: [facility] Study 03/29/2025 Pt Outpatient Date: Status: Study 07:51:20 AM CSN #: [id number] Time: Ordering:Zia Mata Franchise Sales Manager: Eve Monte [facility] Indications and History: Nonischemic cardiomyopathy (CMS/HCC)[I42.8 (ICD-10-CM)]; SSS (sick sinus syndrome) (CMS/HCC) [I49.5 (ICD-10-CM)];SOBOE (shortness of breath on exertion) [R06.02 (ICD-10-CM)]. Labs, prior tests, procedures, and surgery: Transthoracic echocardiogram (08/31/2021). EF was 37%. Permanent pacemaker system implantation. Summary and Conclusion: - Left ventricle: The cavity size is normal. Wall thickness is at theupper limits of normal. Global systolic function is moderately reduced. The estimated ejection fraction is 35-40%. For Epic reporting: the left ventricular ejection fraction is 40% by visual assessment. There isdiffuse hypokinesis which appears worse at the apex. Regional wall motiondifficult to determine despite echo contrast. Interventricular septum shows dyssynergy, consistent with previous thoracotomy, conduction delay orRV pacing. Findings consistent with left ventricular diastolic dysfunction.The longitudinal strain is -7.3% (Normal range is -18 to -25). - Right ventricle: Not well visualized. Pacer wire or catheter noted inright ventricle. Systolic function is difficult to assess and probablynormal. Systolic pressure is within the normal range. The estimated peakpressure is 33mm Hg. - Left atrium: Not well visualized. The atrium is dilated. - Aortic valve: The valve is trileaflet. The leaflets are mildlycalcified. There is no stenosis. - Tricuspid valve: There is mild regurgitation. - Aortic root: The root is mildly dilated and 42.0mm diameter. - Ascending aorta: The vessel is mildly dilated and 41.0mm diameter. Impressions: Technically difficult study. Comparison: Prior Study Date: 08/31/2021. Procedure information: Comparison is made to the study of August2021. Study status: Routine. Procedure: Intravenous access was obtained. A transthoracic echocardiogram was performed. Image quality was adequate.The study was technically limited due to poor acoustic window availabilityand irregular rhythm. Scanning was performed from the parasternal, apical, subcostal, and suprasternal notch acoustic windows. Intravenous contrast (Definity) was administered. There were no complications. There were no contrast reactions. Contrast study performed to evaluate leftventricular endocardial borders due to suboptimal non-contrast images.Study components: M-mode, 2D, complete spectral Doppler, and color Doppler. Height: 177.8cm. Height: 70in. Weight: 102.5kg. Weight: 226lb.BMI: 32.4kg/m^2. BSA: 2.28m^2. Blood pressure: 103/66 Studydate: 03/29/2025. Study time: 07:51 AM. Location: Echo laboratory. Cardiac Anatomy: LEFT VENTRICLE: The cavity size is normal. Wall thickness is at theupper limits of normal. Global systolic function is moderately reduced. The estimated ejection fraction is 35-40%. For Epic reporting: the left ventricular ejection fraction is 40% by visual assessment. There isdiffuse hypokinesis which appears worse at the apex. Regional wall motiondifficult to determine despite echo contrast. Interventricular septum showsdyssynergy, consistent with previous thoracotomy, conduction delay or RV pacing. The longitudinal strain is -7.3% (Normal range is -18 to -25). Findingsconsistent with left ventricular diastolic dysfunction. RIGHT VENTRICLE: Not well visualized. Pacer wire or catheter noted inright ventricle. Systolic function is difficult to assess and probably normal. Systolic pressure is within the normal range. The estimated peak pressureis 33mm Hg. LEFT ATRIUM: Not well visualized. The atrium is dilated. RIGHT ATRIUM: The atrium is normal in size. ATRIAL SEPTUM: No obvious PFO or ASD identified by 2D imaging and color Doppler. AORTIC VALVE: The valve is trileaflet. The leaflets are mildlycalcified. Mobility is not restricted. There is no stenosis. There is nosignificant regurgitation. MITRAL VALVE: Structurally normal valve. Mobility is not restricted.No evidence for prolapse. There is no evidence for stenosis. There is no significant regurgitation. TRICUSPID VALVE: Structurally normal valve. Mobility isunrestricted. There is no evidence for stenosis. There is mild regurgitation. PULMONIC VALVE: Not well visualized. The valve appears to be grosslynormal. There is no evidence for stenosis. There is trace regurgitation. PERICARDIUM: There is no pericardial effusion. AORTA: Aortic root: The root is mildly dilated and 42.0mm diameter. Ascending aorta: The vessel is mildly dilated and 41.0mm diameter. Aortic arch: The vessel is not dilated. INTRACARDIAC MASS THROMBUS: No apparent intracavitary masses or thrombi detected. Measurements Left ventricle Value Right ventricle Value GLS, 2D -7.3 % ZOYA, LAX 3.1 cm ZOYA, LAX 4.2 cm TAPSE, MM 1.9 cm ESD, LAX 3.1 cm S' lateral 12.9 cm/sec ZOYA/bsa, LAX 1.8 cm/m^2 ESD/bsa, LAX 1.4 cm/m^2 Left atrium Value FS, LAX 26 % AP dim, ES 4.9 cm FS, LAX chord 26 % AP dim index, ES 2.1 cm/m^2 ESD major ax, A4C 6.9 cm SI dim, A4C 6.1 cm ESD/bsa major ax, A4C 3.0 cm/m^2 Area ES, A4C 28 cm^2 ZOYA minor ax, A4C 6.9 cm Vol, S 89 ml ZOYA/bsa minor ax, A4C 3.0 cm/m^2 Vol/bsa, S 39 ml/m^2 ZOYA major ax, A2C 8.3 cm Vol, ES, 1-p A4C 98 ml ESD major ax, A2C 7.1 cm Vol/bsa, ES, 1-p A4C 43 ml/m^2 ZOYA/bsa major ax, A2C 3.6 cm/m^2 Vol, ES, 1-p A2C 65 ml ESD/bsa major ax, A2C 3.1 cm/m^2 Vol/bsa, ES, 1-p A2C 29 ml/m^2 IVS, ED 1.1 cm Vol, ES, 2-p 83 ml ESD 3.1 cm Vol/bsa, ES, 2-p 36 ml/m^2 ESD/bsa 1.4 cm/m^2 Vol, ES, A/L 107 ml FS 26 % Vol/bsa, ES, A/L 47 ml/m^2 PW, ED 1.0 cm IVS/PW, ED 1.09 Right atrium Value EDV, 1-p A2C 100 ml Area, ES 19 cm^2 ESV, 1-p A2C 44 ml Area, ES, A4C 19 cm^2 EF, 1-p A2C 44 % EDV/bsa, 1-p A2C 44 ml/m^2 Aortic valve Value ESV/bsa, 1-p A2C 19 ml/m^2 Peak v, S 90 cm/sec EDV, 1-p A4C 86 ml Peak grad, S 3 mm Hg ESV, 1-p A4C 48 ml LVOT/AV, Vpeak ratio 0.58 EF, 1-p A4C 45 % SV, 1-p A4C 39 ml Tricuspid valve Value EDV/bsa, 1-p A4C 38 ml/m^2 TR peak v 261 cm/sec ESV/bsa, 1-p A4C 21 ml/m^2 Peak RV-RA grad, S 27 mm Hg SV/bsa, 1-p A4C 17 ml/m^2 EDV, 2-p 96 ml Aortic root Value ESV, 2-p 52 ml Root diam 4.2 cm EF, 2-p 45 % Root diam/bsa 1.8 cm/m^2 SV, 2-p 56 ml EDV/bsa, 2-p 42 ml/m^2 Ascending aorta Value ESV/bsa, 2-p 23 ml/m^2 AAo AP diam, S 4.1 cm SV/bsa, 2-p 24.7 ml/m^2 AAo AP diam/bsa, S 1.8 cm/m^2 LVOT Value Peak dorothea, S 52.4 cm/sec Peak grad, S 1 mm Hg Legend: (L) and (H) kait values outside specified reference range. [facility] are accredited with theIntersocietal Accreditation Commission - Echocardiography. Prepared and Electronically Authenticated Albino Merrill Confirmed 03/30/2025 08:03 us Zia TRINH US ORDERABLES Final Re sult INTERFACE SYSTEM Refer to clinic/hospital department * CT CARDIAC CHEST INTERPRETATION (03/17/2025 10:13 AM CDT) Anatomical Region Laterality Modality Chest Computed Tomogra phy 03/17/2025 10:1 3 AM CDT Impressions 03/17/2025 10:45 AM CDT IMPRESSION: 1. Acute findings on this limited CT of the chest. 2. Cardiomegaly. 3. Coronary artery atherosclerotic calcifications. 4. The ascending thoracic aorta measures 4.2 cm in diameter. 5. Cholecystectomy. Narrative 03/17/2025 10:45 AM CDT Exam: CT CARDIAC CHEST INTERPRETATION Date/Time of Exam: 03/17/2025, 10:13 AM. Diagnosis/Reason For Exam: Chest pain/anginal equiv, high CAD risk, not treadmill candidate. Complete heart block (CMS/HCC); Presence of permanent cardiac pacemaker; Paroxysmal atrial fibrillation (CMS/HCC); Hx of atrioventricular node ablation; Chronic anticoagulation; Chronic combined systolic and diastolic CHF, NYHA class 1 (CMS/HCC); Nonischemic cardiomyopathy (CMS/HCC); Essential hypertension; Dyslipidemia; SOBOE (shortness of breath on exertion); Unstable angina pectoris (CMS/HCC). Technique: CT of the chest was performed following the administration of intravenous contrast. Cardiac portion of the exam to be interpreted by cardiology department. Contrast: Isovue-370, 75 mL intravenous. Comparison: None. FINDINGS: The heart size is enlarged. The coronary arteries contain a moderate amount of calcified plaque. The tubular portion of the ascending thoracic aorta measures 4.2 cm in diameter. The leads of a cardiac pacing device are partially imaged. A small amount of dependent atelectasis is present within both lungs. Small amount of probable subsegmental and linear atelectasis is also present in the right middle lobe. There is no definite focal consolidation. No pneumothorax or pleural effusion is seen. The gallbladder is surgically absent. There are moderate degenerative changes of the thoracic spine. Procedure Note Harmeet Gibbs MD - 03/17/2025 Exam: CT CARDIAC CHEST INTERPRETATION Date/Time of Exam: 03/17/2025, 10:13 AM. Diagnosis/Reason For Exam: Chest pain/anginal equiv, high CAD risk, not treadmill candidate. Complete heart block (CMS/HCC); Presence of permanent cardiac pacemaker; Paroxysmal atrial fibrillation (CMS/HCC); Hx of atrioventricular node ablation; Chronic anticoagulation; Chronic combined systolic and diastolic CHF, NYHA class 1 (CMS/HCC); Nonischemic cardiomyopathy (CMS/HCC); Essential hypertension; Dyslipidemia; SOBOE (shortness of breath on exertion); Unstable angina pectoris (CMS/HCC). Technique: CT of the chest was performed following the administration of intravenous contrast. Cardiac portion of the exam to be interpreted by cardiology department. Contrast: Isovue-370, 75 mL intravenous. Comparison: None. FINDINGS: The heart size is enlarged. The coronary arteries contain a moderate amount of calcified plaque. The tubular portion of the ascending thoracic aorta measures 4.2 cm in diameter. The leads of a cardiac pacing device are partially imaged. A small amount of dependent atelectasis is present within both lungs. Small amount of probable subsegmental and linear atelectasis is also present in the right middle lobe. There is no definite focal consolidation. No pneumothorax or pleural effusion is seen. The gallbladder is surgically absent. There are moderate degenerative changes of the thoracic spine. IMPRESSION: 1. Acute findings on this limited CT of the chest. 2. Cardiomegaly. 3. Coronary artery atherosclerotic calcifications. 4. The ascending thoracic aorta measures 4.2 cm in diameter. 5. Cholecystectomy. Zia TRINH CT ORDERABLES Final Re sult * CTA HEART AND ARTERIES (03/17/2025 10:13 AM CDT) 03/17/2025 9:29 AM CDT Narrative INTERFACE SYSTEM - 03/18/2025 1:16 PM CDT CTA Coronary Arteries With Cardiac Structure: Image quality is only fair Findings: 1. Aorta: The visualized thoracic aorta exhibited mild scattered calcification. The ascending aorta measures 4.00 cm in diameter.. 2. Pericardium: Thickness is normal, and no pericardial effusion is present. A pericardial fat pad is present. 3. Atria: Both atria are enlarged. The left atrium measures 4.1 cm in diameter. A portion of the inferior left atrium both slightly from left to right. Pacer leads are noted in the right atrium and right ventricle. 4. Right ventricle: The right ventricle appears to be normal size. 5. Left ventricle: The left ventricle appears to be normal size with normal wall thickness. The basilar septum measures 12.1 mm in thickness. 6. Aortic valve: The aortic valve appears unremarkable. 7. Mitral valve: The mitral valve appears remarkable. 8. Cardiac function: Gating was not performed to reduce radiation dose. 9. Coronary arteries: The coronary calcium score is [683]. A. Left main: Has minor calcification but appears widely patent.. B. Left anterior descending: On selected reconstructions appears to have a mild focal soft narrowing at its origin. There is then irregular shelf of calcium with probable mild soft plaque associated with it. Just beyond it there is mild to moderate focal soft plaque narrowing. The first diagonal branch arises from the calcified segment and appears unremarkable. The distal LAD appears unremarkable.. C. Circumflex: Has minor scattered calcification but no discrete stenoses are noted.. D. Right coronary artery: Is a dominant vessel with scattered calcification present. There appears to be mild soft plaque present in the mid vessel and also a segment of mild plaque near the acute angle distally. The distal most branch appears unremarkable. Impressions 1. The quantitative coronary artery Agatston score is [684], which is at the [64th] percentile for age/ethnicity. 2. Normal coronary artery origins. The left main coronary artery appears widely patent. [The LAD appears to have mild soft plaque and a shelf of calcification in its proximal portion. Beyond the first diagonal branch there appears to be a mild to moderate focal soft plaque narrowing. The distal LAD appears to be widely patent. There is mild to moderate scattered calcification in the circumflex and RCA with probable mild soft plaque in the mid and distal RCA.]. No severe stenoses are identified. 3. CAD RADS- [2-3]. 4. The ascending aorta measures 4.0 cm in diameter. Pacer leads are present in the right heart chambers. Both atria are enlarged. The left atrium measures 5.1 cm in diameter. Unremarkable valvular structures and myocardial wall thickness. 5. Please refer to separate dictation for non-cardiac findings. Coronary artery disease reporting and data system (CAD- RADS) grading of disease: CAD-RADS 0: documented absence of coronary artery disease; 0% maximal coronary stenosis and no plaque CAD-RADS 1: minimal nonobstructive coronary artery disease; 1-24% maximal coronary stenosis = minimal stenosis, or plaque with no stenosis (positive remodeling) CAD-RADS 2: mild nonobstructive coronary artery disease, 25-49% maximal coronary stenosis = mild stenosis CAD-RADS 3: moderate stenosis; 50-69% maximal coronary stenosis CAD-RADS 4: severe stenosis CAD-RADS 4a: 70-99% maximal coronary stenosis CAD-RADS 4b: left main >50% stenosis or three-vessel obstructive (>=70% stenosis) disease CAD-RADS 5: total coronary occlusion; 100% maximal coronary stenosis = total occlusion CAD-RADS N: obstructive coronary artery disease cannot be excluded; nondiagnostic study Procedure Note Víctor Navarro MD - 03/18/2025 CTA Coronary Arteries With Cardiac Structure: Image quality is only fair Findings: 1. Aorta: The visualized thoracic aorta exhibited mild scattered calcification. The ascending aorta measures 4.00 cm in diameter.. 2. Pericardium: Thickness is normal, and no pericardial effusion is present. A pericardial fat pad is present. 3. Atria: Both atria are enlarged. The left atrium measures 4.1 cm in diameter. A portion of the inferior left atrium both slightly from left to right. Pacer leads are noted in the right atrium and right ventricle. 4. Right ventricle: The right ventricle appears to be normal size. 5. Left ventricle: The left ventricle appears to be normal size with normal wall thickness. The basilar septum measures 12.1 mm in thickness. 6. Aortic valve: The aortic valve appears unremarkable. 7. Mitral valve: The mitral valve appears remarkable. 8. Cardiac function: Gating was not performed to reduce radiation dose. 9. Coronary arteries: The coronary calcium score is [683]. A. Left main: Has minor calcification but appears widely patent.. B. Left anterior descending: On selected reconstructions appears to have a mild focal soft narrowing at its origin. There is then irregular shelf of calcium with probable mild soft plaque associated with it. Just beyond it there is mild to moderate focal soft plaque narrowing. The first diagonal branch arises from the calcified segment and appears unremarkable. The distal LAD appears unremarkable.. C. Circumflex: Has minor scattered calcification but no discrete stenoses are noted.. D. Right coronary artery: Is a dominant vessel with scattered calcification present. There appears to be mild soft plaque present in the mid vessel and also a segment of mild plaque near the acute angle distally. The distal most branch appears unremarkable. Impressions 1. The quantitative coronary artery Agatston score is [684], which is at the [64th] percentile for age/ethnicity. 2. Normal coronary artery origins. The left main coronary artery appears widely patent. [The LAD appears to have mild soft plaque and a shelf of calcification in its proximal portion. Beyond the first diagonal branch there appears to be a mild to moderate focal soft plaque narrowing. The distal LAD appears to be widely patent. There is mild to moderate scattered calcification in the circumflex and RCA with probable mild soft plaque in the mid and distal RCA.]. No severe stenoses are identified. 3. CAD RADS- [2-3]. 4. The ascending aorta measures 4.0 cm in diameter. Pacer leads are present in the right heart chambers. Both atria are enlarged. The left atrium measures 5.1 cm in diameter. Unremarkable valvular structures and myocardial wall thickness. 5. Please refer to separate dictation for non-cardiac findings. Coronary artery disease reporting and data system (CAD- RADS) grading of disease: CAD-RADS 0: documented absence of coronary artery disease; 0% maximal coronary stenosis and no plaque CAD-RADS 1: minimal nonobstructive coronary artery disease; 1-24% maximal coronary stenosis = minimal stenosis, or plaque with no stenosis (positive remodeling) CAD-RADS 2: mild nonobstructive coronary artery disease, 25-49% maximal coronary stenosis = mild stenosis CAD-RADS 3: moderate stenosis; 50-69% maximal coronary stenosis CAD-RADS 4: severe stenosis CAD-RADS 4a: 70-99% maximal coronary stenosis CAD-RADS 4b: left main >50% stenosis or three-vessel obstructive (>=70% stenosis) disease CAD-RADS 5: total coronary occlusion; 100% maximal coronary stenosis = total occlusion CAD-RADS N: obstructive coronary artery disease cannot be excluded; nondiagnostic study Zia TRINH CT ORDERABLES Final Re sult INTERFACE SYSTEM Refer to clinic/hospital department * (ABNORMAL) POC CREATININE (03/17/2025 8:36 AM CDT) CREATININE POC 1.60(H) 0.60 - 1.30 mg/dL 03/17/2025 8:36 AM T [email or web address] [facility] Comment:The GFR result is no t clinically significant on patients <18 or >70 years of age. GFR POC 44 mL/min/1. 73 sq meter 03/17/2025 8:36 AM T [facility] Comment:eGFR calculated with 2020 CKD-EPI equation. Vegetarian diet, extremely high or low muscle mass, and may affect results. Cystatin C with Glomerular Filtration Rate is a suitable alternative for these patients. Blood, whole 03/17/2025 8:36 AM CDT 03/17/2025 8:55 AM CDT Zia TRINH POINT OF CARE TESTING Fi nal Result [facility] CLIA # [id number] [address] [address] * COLONOSCOPY REPORT (10/04/2020 1:25 PM DRY KILN LOADER) Narrative Procedure Note Víctor Gurrola MD - 10/04/2020 1:25 PM CST Procedures signed by Víctor Gurrola MD at 10/04/2020 1:25 PM Author: Víctor Gurrola MD Service: -- Author Type: Physician Filed: 10/04/2020 1:25 PM Date of Service: 10/04/2020 1:25 PM Status:Signed Health Promoter: Víctor Gurrloa MD (Physician) Procedure Orders 1. COLONOSCOPY REPORT [[id number]] ordered by Víctor Gurrola MD at10/04/20 1325 [facility] GI Patient Name: Roberto Harden Procedure Date: 10/04/2020 Date of : [...] 1:03:16 PM Scope Out: 1:19:03 PM [address] [place], [place] Víctor Gurrola MD GI PROCEDURE ORDERABLES Edite d Result - Final from Last 3 Months or Most Recently Relevant to Health Maintenance Insurance MEDICARE PART A AND B [facility] * Guarantor: ROBERTO HARDEN Account Type Relation to Patient Date of Phone Billing Address Personal/Family [address] [place] [id number] RX [employer] (INTERNAL) [facility] Plans RX [employer] Commercial RX [employer] RX Member Subscriber Plan / Payer (Ef fective for All Dates) Name:Roberto Harden Relation to Subscriber:Self Name:Roberto Harden Payer ID:Not on file Type:RX Commercial Address: [address] * Guarantor: [employer] L (C) Account Type Relation to Patient Date of Phone Billing Address Corporate Other DEFAULT ADDRESS [address] [employer] * Guarantor: GRETA SERVIN L (C) Account Type Relation to Patient Date of Phone [facility] DEFAULT ADDRESS [address] [employer] Advance Directives For more information, please contact: [phone] Documents on File Type Date Recorded Patient Carding Machine Feeder Expl anation Advance Directive POA 12/17/2017 4:14 PM A dvance Directive POA * Full Code (Latest Code Status on File) Date Activated Date Inactivated Comments 04/20/2025 3:42 PM 04/22/2025 2:17 PM * Full Code Date Activated Date Inactivated Comments 04/14/2025 6:36 AM 04/14/2025 6:10 PM Care Teams Internal Controls Analyst Relationship Specialty Start Date End Date Jeni Geronimo MD [address] [place] [id number] PCP - General Family Practice 04/09/25
--- OUTSIDE RECORDS SUMMARY | 2025-05-27 16:02 | XMS_ITS | Encounter Summary ---
Author Organization [facility] Address [address] [place] [address] Care Team Providers Care Campus Safety Officer Name Role Phone Sai Blackburn MD Primary Care Provider Encounter Details Date Type Department Care Team (Latest Contact Info) Description 01/19/2005 Outpatient Historical [facility] Cardiology Ancillary Services-[place] [address] [place] [address] Kvng Moran MD NO ADDRESS ON FILE Sinoatrial node dysfunct (Primary Dx); CARDIAC PACEMAKER IN SITU Social History Tobacco Use Types Packs/Day Years Used Date Smoking Tobacco: Never Assessed Sex and Gender Information Value Date Recorded Sex Assigned at Not on file 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
--- OUTSIDE RECORDS SUMMARY | 2025-05-27 16:02 | XMS_ITS | Encounter Summary ---
Author Organization [facility] Address [address] [place] [address] Care Team Providers Care Personal Shopper Name Role Phone Sai Blackburn MD Primary Care Provider [phone] Encounter Details Date Type Department Care Team (Latest Contact Info) Description 10/26/2005 Outpatient [facility] [address] [place] [address] La Ramon MD NO ADDRESS ON FILE HYPERLIPIDEMIA NEC/NOS (Primary Dx); ELEV BL PRES W/O HYPERTN; DEPRESSIVE DISORDER NEC; Routine medical exam Social History Tobacco Use Types Packs/Day Years Used Date Smoking Tobacco: Never Assessed Sex and Gender Information Value Date Recorded Sex Assigned at Not on file Legal Sex Male 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 FERRY HAND Gender Identity Not on file Sexual Orientation Not on file documented as of this encounter Plan of Treatment Not on file documented as of this encounter Visit Diagnoses Diagnosis Other and unspecified hyperlipidemia- Primary Elevated blood pressure reading without diagnosis of hypertension Depressive disorder, not elsewhere classified Routine medical exam Routine general medical examination at a health care facility documented in this encounter Care Teams Personal Shopper Relationship Specialty Start Date End Date Sai Blackburn MD [address] [place] [id number] PCP - General Internal Medicine 06/24/19 01/17/20 documented as of this encounter
--- OUTSIDE RECORDS SUMMARY | 2025-05-27 16:02 | XMS_ITS | Encounter Summary ---
Author Organization [facility] Address [address] [place] [address] Care Team Providers Care Trimmer Press Clippings Name Role Phone Sai Blackburn MD Primary Care Provider Encounter Details Date Type Department Care Team (Latest Contact Info) Description 07/04/2005 Outpatient Historical [facility] Cardiology Ancillary Services-[place] [address] [place] [address] Kvng Moran MD NO ADDRESS ON FILE Sinoatrial node dysfunct (Primary Dx); CARDIAC PACEMAKER IN SITU Social History Tobacco Use Types Packs/Day Years Used Date Smoking Tobacco: Never Assessed Sex and Gender Information Value Date Recorded Sex Assigned at Not on file 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
--- OUTSIDE RECORDS SUMMARY | 2025-05-27 16:02 | XMS_ITS | Encounter Summary ---
Author Organization [facility] Address [address] [place] [address] Care Team Providers Care Railroad Engineer Name Role Phone Sai Blackburn MD Primary Care Provider Encounter Details Date Type Department Care Team (Latest Contact Info) Description 05/09/2005 Outpatient Historical [facility] Cardiology Ancillary Services-[place] [address] [place] [address] Kvng Moran MD NO ADDRESS ON FILE Sinoatrial node dysfunct (Primary Dx); CARDIAC PACEMAKER IN SITU Social History Tobacco Use Types Packs/Day Years Used Date Smoking Tobacco: Never Assessed Sex and Gender Information Value Date Recorded Sex Assigned at Not on file 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
--- OUTSIDE RECORDS SUMMARY | 2025-05-27 16:03 | XMS_ITS | Encounter Summary ---
Author Organization [facility] Address [address] [place] [address] Care Team Providers Care Dedicated Truck Driver Name Role Phone Sai Blackburn MD Primary Care Provider [phone] Encounter Details Date Type Department Care Team (Latest Contact Info) Description 10/30/2000 Outpatient Historical [facility] Marques Rodriguez Jr., MD [address] [place] [phone] nursing home (current) use of anticoagulants (Primary Dx) Social History Tobacco Use Types Packs/Day Years Used Date Smoking Tobacco: Never Assessed Sex and Gender Information Value Date Recorded Sex Assigned at Not on file 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
--- OUTSIDE RECORDS SUMMARY | 2025-05-27 16:03 | XMS_ITS | Encounter Summary ---
Author Organization [facility] Address [address] [place] [address] Care Team Providers Care Corporate Analyst Name Role Phone Sai Blackburn MD Primary Care Provider [phone] Encounter Details Date Type Department Care Team (Late st Contact Info) Description 09/24/2000 Outpatient Historical [facility] O[place] MD [address] [place] [address] Atrial fibrillation (CMS/HCC) (Primary Dx); Pure hypercholesterolem; Special screening for malignant neoplasm of prostate; prison (current) use of anticoagulants Social History Tobacco Use Types Packs/Day Years Used Date Smoking Tobacco: Never Assessed Sex and Gender Information Value Date Recorded Sex Assigned at Not on file 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 Gender Identity Not on file Sexual Orientation Not on file documented as of this encounter Plan of Treatment Not on file documented as of this encounter Visit Diagnoses Diagnosis Atrial fibrillation (CMS/HCC)- Primary Atrial fibrillation Pure hypercholesterolem Pure hypercholesterolemia Special screening for malignant neoplasm of prostate prison (current) use of anticoagulants Long-term (current) use of anticoagulants documented in this encounter Care Teams Corporate Analyst Relationship Specialty Start Date End Date Sai Blackburn MD [address] [place] [address] PCP - General Internal Medicine 06/24/19 01/17/20 documented as of this encounter
--- OUTSIDE RECORDS SUMMARY | 2025-05-27 16:03 | XMS_ITS | Encounter Summary ---
Author Organization [facility] Address [address] [place] [address] Care Team Providers Care Corporate Tax Manager Name Role Phone Sai Blackburn MD Primary Care Provider Encounter Details Date Type Department Care Team (Latest Contact Info) Description 12/09/[address] [facility] [address] [place] [phone] Vale Pires MD [address] [place] [address] Depressive disorder, not elsewhere classified (Primary Dx); Osteoarthrosis, unspecified whether generalized or localized, unspecified site Social History Tobacco Use Types Packs/Day Years Used Date Smoking Tobacco: Never Assessed Sex and Gender Information Value Date Recorded Sex Assigned at Not on file 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
--- OUTSIDE RECORDS SUMMARY | 2025-05-27 16:03 | XMS_ITS | Encounter Summary ---
Author Organization [facility] Address [address] [place] [address] Care Team Providers Care Social Problems Specialist Name Role Phone Sai Blackburn MD Primary Care Provider [phone] Encounter Details Date Type Department Care Team (Latest Contact Info) Description 02/10/2007 Outpatient Historical [facility] Cardiology Ancillary Services-[place] [address] [place] [address] Kvng Moran MD NO ADDRESS ON FILE Sinoatrial Node Dysfunct (Primary Dx); Cardiac Pacemaker in Situ Social History Tobacco Use Types Packs/Day Years Used Date Smoking Tobacco: Never Assessed Sex and Gender Information Value Date Recorded Sex Assigned at Not on file 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
--- OUTSIDE RECORDS SUMMARY | 2025-05-27 16:03 | XMS_ITS | Encounter Summary ---
Author Organization [facility] Address [address] [place] [address] Care Team Providers Care Table Assembler Name Role Phone Sai Blackburn MD Primary Care Provider Encounter Details Date Type Department Care Team (Latest Contact Info) Description 09/24/2000 Outpatient [facility] [address] [place] [address] Vale Pires MD [address] [place] [address] Routine medical exam (Primary Dx) Social History Tobacco Use Types Packs/Day Years Used Date Smoking Tobacco: Never Assessed Sex and Gender Information Value Date Recorded Sex Assigned at Not on file 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
--- OUTSIDE RECORDS SUMMARY | 2025-05-27 16:03 | XMS_ITS | Encounter Summary ---
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
--- OUTSIDE RECORDS SUMMARY | 2025-05-27 16:03 | XMS_ITS | Encounter Summary ---
Author Organization [facility] Address [address] [place] [address] Care Team Providers Care Map And Chart Mounter Name Role Phone Sai Blackburn MD Primary Care Provider Encounter Details Date Type Department Care Team (Latest Contact Info) Description 05/31/2000 Outpatient Historical [facility] Marques Rodriguez Jr., MD [address] [place] [address] senior care (current) use of anticoagulants (Primary Dx); Atrial fibrillation (CMS/HCC) Social History Tobacco Use Types Packs/Day Years Used Date Smoking Tobacco: Never Assessed Sex and Gender Information Value Date Recorded Sex Assigned at Not on file 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
--- OUTSIDE RECORDS SUMMARY | 2025-05-27 16:03 | XMS_ITS | Encounter Summary ---
Author Organization [facility] Address [address] [place] [address] Care Team Providers Care Roller Setter Name Role Phone Sai Blackburn MD Primary Care Provider [phone] Encounter Details Date Type Department Care Team (Latest Contact Info) Description 10/18/2000 Outpatient Historical [facility] Marques Rodriguez Jr., MD [address] [place] [address] intermediate (current) use of anticoagulants (Primary Dx) Social History Tobacco Use Types Packs/Day Years Used Date Smoking Tobacco: Never Assessed Sex and Gender Information Value Date Recorded Sex Assigned at Not on file 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
--- OUTSIDE RECORDS SUMMARY | 2025-05-27 16:03 | XMS_ITS | Encounter Summary ---
Author Organization [facility] Address [address] [place] [address] Care Team Providers Care Manager Rental Name Role Phone Sai Blackburn MD Primary Care Provider Encounter Details Date Type Department Care Team (Latest Contact Info) Description 09/24/[address] 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
--- OUTSIDE RECORDS SUMMARY | 2025-05-27 16:03 | XMS_ITS | Encounter Summary ---
Author Organization [facility] Address [address] 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
--- OUTSIDE RECORDS SUMMARY | 2025-05-27 16:03 | XMS_ITS | Encounter Summary ---
Author Organization [facility] Address [address] [place] [address] Care Team Providers Care Vendor Management Specialist Name Role Phone Sai Blackburn MD Primary Care Provider [phone] Encounter Details Date Type Department Care Team (Latest Contact Info) Description 11/15/2006 Outpatient Historical [facility] Cardiology Ancillary Services-[place] [address] [place] [address] Kvng Moran MD NO ADDRESS ON FILE Sinoatrial Node Dysfunct (Primary Dx); Cardiac Pacemaker in Situ Social History Tobacco Use Types Packs/Day Years Used Date Smoking Tobacco: Never Assessed Sex and Gender Information Value Date Recorded Sex Assigned at Not on file 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
--- OUTSIDE RECORDS SUMMARY | 2025-05-27 16:03 | XMS_ITS | Encounter Summary ---
Author Organization [facility] Address [address] [place] [address] Care Team Providers Care Bread Wrapping Machine Feeder Name Role Phone Sai Blackburn MD Primary Care Provider Encounter Details Date Type Department Care Team (Latest Contact Info) Description 07/18/2007 Outpatient Historical [facility] Cardiology Ancillary Services-[place] [address] [place] [address] Kvng Moran MD NO ADDRESS ON FILE Sinoatrial Node Dysfunct (Primary Dx); Cardiac Pacemaker in Situ Social History Tobacco Use Types Packs/Day Years Used Date Smoking Tobacco: Never Assessed Sex and Gender Information Value Date Recorded Sex Assigned at Not on file 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
--- OUTSIDE RECORDS SUMMARY | 2025-05-27 16:03 | XMS_ITS | Encounter Summary ---
Author Organization [facility] Address [address] [place] [address] Care Team Providers Care Cigarette Making Machine Catcher Name Role Phone Sai Blackburn MD Primary Care Provider [phone] Encounter Details Date Type Department Care Team (Latest Contact Info) Description 12/05/2006 Outpatient Historical [facility] [address] 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
--- OUTSIDE RECORDS SUMMARY | 2025-05-27 16:03 | XMS_ITS | Encounter Summary ---
Author Organization [facility] Address [address] [place] [address] Care Team Providers Care Refractory Bricklayer Name Role Phone Sai Blackburn MD Primary Care Provider Encounter Details Date Type Department Care Team (Latest Contact Info) Description 05/07/2007 Outpatient Historical [facility] Cardiology Ancillary Services-[place] [address] [place] [address] Kvng Moran MD NO ADDRESS ON FILE Atrioventricular Block, Complete (CMS/HCC) (Primary Dx); Sinoatrial Node Dysfunct; Cardiac Pacemaker in Situ; Fitting and Adjustment of Cardiac Pacemaker Social History Tobacco Use Types Packs/Day Years Used Date Smoking Tobacco: Never Assessed Sex and Gender Information Value Date Recorded Sex Assigned at Not on file 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 Gender Identity Not on file Sexual Orientation Not on file documented as of this encounter Plan of Treatment Not on file documented as of this encounter Visit Diagnoses Diagnosis Atrioventricular block, complete (CMS/HCC)- Primary Atrioventricular block, complete Sinoatrial node dysfunct Sinoatrial node dysfunction Cardiac pacemaker in situ Fitting and adjustment of cardiac pacemaker documented in this encounter Care Teams Refractory Bricklayer Relationship Specialty Start Date End Date Sai Blackburn MD [address] [place] [address] PCP - General Internal Medicine 06/24/19 01/17/20 documented as of this encounter
--- OUTSIDE RECORDS SUMMARY | 2025-05-27 16:03 | XMS_ITS | Encounter Summary ---
Author Organization [facility] Address [address] [place] [address] Care Team Providers Care Registered Pharmacy Technician Name Role Phone Sai Blackburn MD Primary Care Provider Encounter Details Date Type Department Care Team (Latest Contact Info) Description 08/04/2007 Outpatient Historical [facility] Gastroenterology- [place] [address] [phone] Víctor Gurrola MD [address] [place] [address] Personal History of Colonic Polyps (Primary Dx); Benign Bassam Lg Bowel Social History Tobacco Use Types Packs/Day Years Used Date Smoking Tobacco: Never Assessed Sex and Gender Information Value Date Recorded Sex Assigned at Not on file 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
--- OUTSIDE RECORDS SUMMARY | 2025-05-27 16:03 | XMS_ITS | Encounter Summary ---
Author Organization [facility] Address [address] [place] [address] Care Team Providers Care Physician Asst Name Role Phone Sai Blackburn MD Primary Care Provider [phone] Encounter Details Date Type Department Care Team (Latest Contact Info) Description 06/13/2007 Outpatient Historical [facility] Cardiology Ancillary Services-[place] [address] [place] [address] Kvng Moran MD NO ADDRESS ON FILE Sinoatrial Node Dysfunct (Primary Dx); Cardiac Pacemaker in Situ Social History Tobacco Use Types Packs/Day Years Used Date Smoking Tobacco: Never Assessed Sex and Gender Information Value Date Recorded Sex Assigned at Not on file 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
--- OUTSIDE RECORDS SUMMARY | 2025-05-27 16:03 | XMS_ITS | Encounter Summary ---
Author Organization [facility] Address [address] [place] [address] Care Team Providers Care Mill Tender Name Role Phone Sai Blackburn MD Primary Care Provider Encounter Details Date Type Department Care Team (Latest Contact Info) Description 10/24/2000 Outpatient Historical [facility] Cardiology- [place] [address] [place] [address] Kvng Moran MD NO ADDRESS ON FILE Atrial fibrillation (CMS/HCC) (Primary Dx) Social History Tobacco Use Types Packs/Day Years Used Date Smoking Tobacco: Never Assessed Sex and Gender Information Value Date Recorded Sex Assigned at Not on file 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
--- OUTSIDE RECORDS SUMMARY | 2025-05-27 16:04 | XMS_ITS | Encounter Summary ---
Author Organization [facility] Address [address] [place] [address] Care Team Providers Care Early Intervention Specialist Name Role Phone Sai Blackburn MD Primary Care Provider [phone] Encounter Details Date Type Department Care Team (Latest Contact Info) Description 04/14/2007 Outpatient Historical [facility] Cardiac National Sales Representative [address] [place] [address] Kvng Moran MD NO ADDRESS ON FILE Fitting and Adjustment of Cardiac Pacemaker (Primary Dx) Social History Tobacco Use Types Packs/Day Years Used Date Smoking Tobacco: Never Assessed Sex and Gender Information Value Date Recorded Sex Assigned at Not on file 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 INR 1.2 INTERFACE SYSTEM Comment: Expected Values for INR: DVT/PE Goal INR 2.5; range 2.0 - 3.0 Valve Replacement Tissue Goal INR 2.5; range 2.0 - 3.0 Mechanical Goal INR 3.0; range 2.5 - 3.5 POST-MD Goal INR 2.5; range 2.0 - 3.0 or Goal 3.0; range 2.5 - 3.5 Atrial Fibrillation Goal INR 2.5; range 2.0 - 3.0 Ischemic Stroke Goal INR 2.5; range 2.0 - 3.0 For additional information see Guidelines for Anticoagulation available from the pharmacy [facility]. PTT 41.2(H) 21.6 - 35.6 Secs INTERFACE SYSTEM Comment: Therapeutic Range: Hi-level PE/DVT heparin protocol 80.1 -95.0 sec Lo-level PE/DVT heparin protocol 67.1 - 80.0 sec Cardiac Heparin Protocol 67.1 - 85.0 sec Neuro Heparin Protocol 67.1 - 80.0 sec As of 08/15/2006 note change in APTT Normal Range. 04/14/2007 5:47 AM CDT us Kvng Moran MD HEMATOLOGY ORDERABLES Edite d INTERFACE SYSTEM Refer to clinic/hospital department documented in this encounter Visit Diagnoses Diagnosis Fitting and adjustment of cardiac pacemaker- Primary documented in this encounter Care Teams Early Intervention Specialist Relationship Specialty Start Date End Date Sai Blackburn MD [address] [place] [phone] PCP - General Internal Medicine 06/24/19 01/17/20 documented as of this encounter
--- OUTSIDE RECORDS SUMMARY | 2025-05-27 16:04 | XMS_ITS | Encounter Summary ---
Author Organization [facility] Address [address] [place] [address] Care Team Providers Care Poultry Feed Supervisor Name Role Phone Sai Blackburn MD Primary Care Provider [phone] Reason for Referral * Outpatient Services (Routine) - Closed Specialty Diagnoses / Procedures Referred By Tracey burnett Referred To Contact Diagnoses Chronic atrial fibrillation (CMS/HCC) Procedures ECHOCARDIOGRAM W/ CONTRAST AGENT ECHO COMPLETE Naye Lowery FNP Phone: tel: fax: Referral ID Status Reason Start Date Expiration Date Visits Re quested Visits Authorized [id number] Closed 12/24/2017 01/24/2019 1 1 Encounter Details Date Type Department Care Team (Latest Contact Info) Description 12/24/2017 Ancillary Orders [facility] [place] [address] [place] [phone] Naye Lowery FNP [address] 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 Gender Identity Not on file Sexual Orientation Not on file Occupation Industry Job Start Date Job End Date disability 2001 Not on file Not on file Not on file documented as of this encounter Plan of Treatment Not on file documented as of this encounter Results * ECHOCARDIOGRAM W/ CONTRAST AGENT (12/24/2017 3:08 PM CDT) EJECTION FRACTION 40 INTERFACE SYSTEM 12/24/2017 2:28 PM CDT Narrative INTERFACE SYSTEM - 12/24/2017 4:21 PM CDT [facility] Echocardiography-[address] [place] [id number] Transthoracic Echocardiography Patient: Fina Study ECHO Kale Burnett ID: COMPLETE Gender: Susan : 1945 Age: 72 Room: Study 12/24/2017 Pt Outpatient Date: Status: Study 02:28 PM CSN #: [id number] Time: Ordering:Naye Lowery Interpreting:Shmuel Contreras MD Hospice Case Manager: Cathy Newell [facility] Indications and History: Atrial Fibrillation. Labs, prior tests, procedures, and surgery: Permanent pacemaker system implantation. Summary and Conclusion: - Left ventricle: The cavity size was normal. Wall thickness was increased in a pattern of mild LVH. Systolic function was mildly to moderately reduced. The left ventricular ejection fraction was 40%. Diffuse hypokinesis. Interventricular septum and apex show dyssynergy, consistent with previous thoracotomy, conduction delay or RV pacing. Diastolic function is indeterminate. - Right ventricle: The cavity size was at the upper limits of normal. Pacer wire or catheter noted in right ventricle. Systolic function was normal. Systolic pressure was within the normal range. - Left atrium: The atrium was mildly dilated. - Mitral valve: Mild regurgitation. - Tricuspid valve: Mild-moderate regurgitation. - Pericardium: A minimal pericardial effusion and/or fat pad was identified. Procedure information: Study status: Routine. Procedure: Transthoracic echocardiography. Image quality was adequate. Scanning was performed from the parasternal, apical, subcostal, and suprasternal notch acoustic windows. Intravenous contrast (Definity) was administered. Study components: M-mode, 2D, complete spectral Doppler, and color Doppler. Height: Height: 177.8cm. Height: 70in. Weight: Weight: 102.1kg. Weight: 224.5lb. Body mass index: BMI: 32.3kg/m\S\2. Body surface area: BSA: 2.28m\S\2. Patient status: Outpatient. Study date: Study date: December 24, 2017. Cardiac Anatomy: LEFT VENTRICLE: The cavity size was normal. Wall thickness was increased in a pattern of mild LVH. Systolic function was mildly to moderately reduced. The left ventricular ejection fraction was 40%. Diffuse hypokinesis. Interventricular septum and apex show dyssynergy, consistent with previous thoracotomy, conduction delay or RV pacing. Diastolic function is indeterminate. RIGHT VENTRICLE: The cavity size was at the upper limits of normal. Pacer wire or catheter noted in right ventricle. Systolic function was normal. Systolic pressure was within the normal range. LEFT ATRIUM: The atrium was mildly dilated. RIGHT ATRIUM: The atrium was normal in size. ATRIAL SEPTUM: No obvious PFO or ASD identified by 2D imaging and color Doppler. AORTIC VALVE: Not well visualized. Trileaflet; normal thickness leaflets. Mobility was not restricted. Doppler: There was no stenosis. Trivial regurgitation. Peak velocity ratio of LVOT to aortic valve: 0.65. Valve area: 2.15cm\S\2 (Vmax). Indexed valve area: 0.94cm\S\2/m\S\2 (Vmax). Peak gradient: 5mm Hg (S). MITRAL VALVE: Structurally normal valve. Mobility was not restricted. No echocardiographic evidence for prolapse. Doppler: There was no evidence for stenosis. Mild regurgitation. Valve area by pressure half-time: 3.52cm\S\2. Indexed valve area by pressure half-time: 1.55cm\S\2/m\S\2. Mean gradient: 1mm Hg (D). Peak gradient: 3mm Hg (D). TRICUSPID VALVE: Structurally normal valve. Mobility was not restricted. Doppler: There was no evidence for stenosis. Mild-moderate regurgitation. PULMONIC VALVE: Not well visualized. The valve appears to be grossly normal. Doppler: There was no evidence for stenosis. Trivial regurgitation. Peak gradient: 3mm Hg (S). PERICARDIUM: A minimal pericardial effusion and/or fat pad was identified. AORTA: Aortic root: The aortic root was normal in size. Aortic arch: The aortic arch was normal in size. SYSTEMIC VEINS: Inferior vena cava: The vessel was normal in size. INTRACARDIAC MASS THROMBUS: No apparent intracavitary masses or thrombi detected. 2D measurements Doppler measurements Left ventricle Left ventricle LVID ED, chord, 46.92 mm IVRT 134 ms PLAX LVOT LVID ES, chord, 30.32 mm Peak dorothea, S 72.77 cm/s PLAX Aortic valve FS, chord, PLAX 35 % Peak dorothea, S 111.96 cm/s LVPW, ED 12.1 mm Peak 5 mm Hg IVS/LVPW ratio, 1.11 gradient, S ED Peak dorothea 0.65 Vol ED, MOD1 93.3 ml ratio, Vol ES, MOD1 49.7 ml LVOT/AV EF, MOD1 46.75 % Area, Vmax 2.15 cm\S\2 Stroke vol, MOD1 43.6 ml Area index 0.94 cm\S\2/m\S\2 Vol index, ED, 41 ml/m\S\2 (Vmax) MOD1 Mitral valve Vol index, ES, 22 ml/m\S\2 Peak E dorothea 61.05 cm/s MOD1 Peak A dorothea 25.24 cm/s Stroke index, 19.2 ml/m\S\2 Mean dorothea, D 40.66 cm/s MOD1 Deceleration 216 ms Vol ED, MOD2 91.1 ml time Vol ES, MOD2 53.2 ml Pressure 63 ms EF, MOD2 41.62 % half-time Vol index, ED, 40 ml/m\S\2 Mean 1 mm Hg MOD2 gradient, D Vol index, ES, 23 ml/m\S\2 Peak 3 mm Hg MOD2 gradient, D Ventricular septum Peak E/A 2.42 IVS, ED 13.41 mm ratio LVOT Area (PHT) 3.52 cm\S\2 Diam, S 20.5 mm Area index 1.55 cm\S\2/m\S\2 AP diam 20.52 mm (PHT) Area 3.3 cm\S\2 Tricuspid valve Aorta Regurg peak 258.33 cm/s Root diam, ED 35.12 mm dorothea AAo AP diam, S 33.41 mm Peak RV-RA 27 mm Hg Left atrium gradient, S AP dim ES, PLAX 44.43 mm Max regurg 258.33 cm/s Right atrium dorothea SI dim, ES, A4C 54.24 mm Pulmonic valve Right ventricle Peak dorothea, S 88.23 cm/s RVID ED, PLAX 24.77 mm Peak 3 mm Hg gradient, S [facility] are accredited with the [facility] Accreditation Commission - Echocardiography. Prepared and Electronically Authenticated Shmuel Contreras MD Confirmed 12/24/2017 16:21 Procedure Note Shmuel Contreras MD - 12/24/2017 [facility] Echocardiography-[place] [address] [facility] [address] [place] [address] Transthoracic Echocardiography Patient: Fina Study ECHO Kale Burnett ID: COMPLETE Gender: Susan : 1945 Age: 72 Room: Study 12/24/2017 Pt Outpatient Date: Status: Study 02:28 PM CSN #: [id number] Time: Ordering:Naye Lowery Interpreting:Shmuel Contreras MD Hospice Case Manager: Cathy Newell [facility] Indications and History: Atrial Fibrillation. Labs, prior tests, procedures, and surgery: Permanent pacemaker system implantation. Summary and Conclusion: - Left ventricle: The cavity size was normal. Wall thickness was increased in a pattern of mild LVH. Systolic function was mildly to moderately reduced. The left ventricular ejection fraction was 40%. Diffuse hypokinesis. Interventricular septum and apex show dyssynergy, consistent with previous thoracotomy, conduction delay or RV pacing. Diastolic function is indeterminate. - Right ventricle: The cavity size was at the upper limits of normal. Pacer wire or catheter noted in right ventricle. Systolic function was normal. Systolic pressure was within the normal range. - Left atrium: The atrium was mildly dilated. - Mitral valve: Mild regurgitation. - Tricuspid valve: Mild-moderate regurgitation. - Pericardium: A minimal pericardial effusion and/or fat pad was identified. Procedure information: Study status: Routine. Procedure: Transthoracic echocardiography. Image quality was adequate. Scanning was performed from the parasternal, apical, subcostal, and suprasternal notch acoustic windows. Intravenous contrast (Definity) was administered. Study components: M-mode, 2D, complete spectral Doppler, and color Doppler. Height: Height: 177.8cm. Height: 70in. Weight: Weight: 102.1kg. Weight: 224.5lb. Body mass index: BMI: 32.3kg/m\S\2. Body surface area: BSA: 2.28m\S\2. Patient status: Outpatient. Study date: Study date: December 24, 2017. Cardiac Anatomy: LEFT VENTRICLE: The cavity size was normal. Wall thickness was increased in a pattern of mild LVH. Systolic function was mildly to moderately reduced. The left ventricular ejection fraction was 40%. Diffuse hypokinesis. Interventricular septum and apex show dyssynergy, consistent with previous thoracotomy, conduction delay or RV pacing. Diastolic function is indeterminate. RIGHT VENTRICLE: The cavity size was at the upper limits of normal. Pacer wire or catheter noted in right ventricle. Systolic function was normal. Systolic pressure was within the normal range. LEFT ATRIUM: The atrium was mildly dilated. RIGHT ATRIUM: The atrium was normal in size. ATRIAL SEPTUM: No obvious PFO or ASD identified by 2D imaging and color Doppler. AORTIC VALVE: Not well visualized. Trileaflet; normal thickness leaflets. Mobility was not restricted. Doppler: There was no stenosis. Trivial regurgitation. Peak velocity ratio of LVOT to aortic valve: 0.65. Valve area: 2.15cm\S\2 (Vmax). Indexed valve area: 0.94cm\S\2/m\S\2 (Vmax). Peak gradient: 5mm Hg (S). MITRAL VALVE: Structurally normal valve. Mobility was not restricted. No echocardiographic evidence for prolapse. Doppler: There was no evidence for stenosis. Mild regurgitation. Valve area by pressure half-time: 3.52cm\S\2. Indexed valve area by pressure half-time: 1.55cm\S\2/m\S\2. Mean gradient: 1mm Hg (D). Peak gradient: 3mm Hg (D). TRICUSPID VALVE: Structurally normal valve. Mobility was not restricted. Doppler: There was no evidence for stenosis. Mild-moderate regurgitation. PULMONIC VALVE: Not well visualized. The valve appears to be grossly normal. Doppler: There was no evidence for stenosis. Trivial regurgitation. Peak gradient: 3mm Hg (S). PERICARDIUM: A minimal pericardial effusion and/or fat pad was identified. AORTA: Aortic root: The aortic root was normal in size. Aortic arch: The aortic arch was normal in size. SYSTEMIC VEINS: Inferior vena cava: The vessel was normal in size. INTRACARDIAC MASS THROMBUS: No apparent intracavitary masses or thrombi detected. 2D measurements Doppler measurements Left ventricle Left ventricle LVID ED, chord, 46.92 mm IVRT 134 ms PLAX LVOT LVID ES, chord, 30.32 mm Peak dorothea, S 72.77 cm/s PLAX Aortic valve FS, chord, PLAX 35 % Peak dorothea, S 111.96 cm/s LVPW, ED 12.1 mm Peak 5 mm Hg IVS/LVPW ratio, 1.11 gradient, S ED Peak dorothea 0.65 Vol ED, MOD1 93.3 ml ratio, Vol ES, MOD1 49.7 ml LVOT/AV EF, MOD1 46.75 % Area, Vmax 2.15 cm\S\2 Stroke vol, MOD1 43.6 ml Area index 0.94 cm\S\2/m\S\2 Vol index, ED, 41 ml/m\S\2 (Vmax) MOD1 Mitral valve Vol index, ES, 22 ml/m\S\2 Peak E dorothea 61.05 cm/s MOD1 Peak A dorothea 25.24 cm/s Stroke index, 19.2 ml/m\S\2 Mean dorothea, D 40.66 cm/s MOD1 Deceleration 216 ms Vol ED, MOD2 91.1 ml time Vol ES, MOD2 53.2 ml Pressure 63 ms EF, MOD2 41.62 % half-time Vol index, ED, 40 ml/m\S\2 Mean 1 mm Hg MOD2 gradient, D Vol index, ES, 23 ml/m\S\2 Peak 3 mm Hg MOD2 gradient, D Ventricular septum Peak E/A 2.42 IVS, ED 13.41 mm ratio LVOT Area (PHT) 3.52 cm\S\2 Diam, S 20.5 mm Area index 1.55 cm\S\2/m\S\2 AP diam 20.52 mm (PHT) Area 3.3 cm\S\2 Tricuspid valve Aorta Regurg peak 258.33 cm/s Root diam, ED 35.12 mm dorothea AAo AP diam, S 33.41 mm Peak RV-RA 27 mm Hg Left atrium gradient, S AP dim ES, PLAX 44.43 mm Max regurg 258.33 cm/s Right atrium dorothea SI dim, ES, A4C 54.24 mm Pulmonic valve Right ventricle Peak dorothea, S 88.23 cm/s RVID ED, PLAX 24.77 mm Peak 3 mm Hg gradient, S [facility] are accredited with the [facility] Accreditation Commission - Echocardiography. Prepared and Electronically Authenticated Shmuel Contreras MD Confirmed 12/24/2017 16:21 us Naye Lowery [facility] US ORDERABLES Final Result INTERFACE SYSTEM Refer to clinic/hospital department documented in this encounter Visit Diagnoses Diagnosis Chronic atrial fibrillation (CMS/HCC) Atrial fibrillation Chronic atrial fibrillation (CMS/HCC) Atrial fibrillation documented in this encounter Care Teams Poultry Feed Supervisor Relationship Specialty Start Date End Date Sai Blackburn MD [address] [place] [phone] PCP - General Internal Medicine 06/24/19 01/17/20 documented as of this encounter
--- OUTSIDE RECORDS SUMMARY | 2025-05-27 16:04 | XMS_ITS | Encounter Summary ---
Author Organization [facility] Address [address] [place] [address] Care Team Providers Care Pension Manager Name Role Phone Sai Blackburn MD Primary Care Provider [phone] Encounter Details Date Type Department Care Team (Latest Contact Info) Description 10/28/2006 Outpatient [facility] [address] [place] [address] La Ramon MD NO ADDRESS ON FILE Other and Unspecified Hyperlipidemia (Primary Dx); Elevated Blood Pressure Reading without Diagnosis of Hypertension; Atrial Fibrillation (CMS/HCC); Routine Medical Exam Social History Tobacco Use Types Packs/Day Years Used Date Smoking Tobacco: Never Assessed Sex and Gender Information Value Date Recorded Sex Assigned at Not on file 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 Sex 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 Gender Identity Not on file Sexual Orientation Not on file documented as of this encounter Plan of Treatment Not on file documented as of this encounter Visit Diagnoses Diagnosis Other and unspecified hyperlipidemia- Primary Elevated blood pressure reading without diagnosis of hypertension Atrial fibrillation (CMS/HCC) Atrial fibrillation Routine medical exam Routine general medical examination at a health care facility documented in this encounter Care Teams Pension Manager Relationship Specialty Start Date End Date Sai Blackburn MD [address] [place] [phone] PCP - General Internal Medicine 06/24/19 01/17/20 documented as of this encounter
--- OUTSIDE RECORDS SUMMARY | 2025-05-27 16:04 | XMS_ITS | Encounter Summary ---
Author Organization [facility] Address [address] [place] [address] Care Team Providers Care Wardrobe Manager Name Role Phone Sai Blackburn MD Primary Care Provider [phone] Encounter Details Date Type Department Care Team (Late st Contact Info) Description 09/11/1999 Outpatient Historical [facility] [place] MD [address] [place] [address] Routine medical exam (Primary Dx); FDC (current) use of anticoagulants Social History Tobacco Use Types Packs/Day Years Used Date Smoking Tobacco: Never Assessed Sex and Gender Information Value Date Recorded Sex Assigned at Not on file 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
--- OUTSIDE RECORDS SUMMARY | 2025-05-27 16:04 | XMS_ITS | Encounter Summary ---
Author Organization [facility] Address [address] [place] [address] Care Team Providers Care Ingredient Scaler Name Role Phone Sai Blackburn MD Primary Care Provider [phone] Encounter Details Date Type Department Care Team (Latest Contact Info) Description 03/26/2000 Outpatient Historical [facility] Marques Rodriguez Jr., MD [address] [place] [phone] senior living (current) use of anticoagulants (Primary Dx) Social History Tobacco Use Types Packs/Day Years Used Date Smoking Tobacco: Never Assessed Sex and Gender Information Value Date Recorded Sex Assigned at Not on file 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
--- OUTSIDE RECORDS SUMMARY | 2025-05-27 16:04 | XMS_ITS | Encounter Summary ---
Author Organization [facility] Address [address] [place] [address] Care Team Providers Care Bilingual Trainer Name Role Phone Sai Blackburn MD Primary Care Provider Encounter Details Date Type Department Care Team (Latest Contact Info) Description 09/13/2006 Outpatient Historical [facility] Cardiology [facility] [address] [place] [address] Kvng Moran MD NO ADDRESS ON FILE Sinoatrial Node Dysfunct (Primary Dx); Cardiac Pacemaker in Situ Social History Tobacco Use Types Packs/Day Years Used Date Smoking Tobacco: Never Assessed Sex and Gender Information Value Date Recorded Sex Assigned at Not on file 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
--- OUTSIDE RECORDS SUMMARY | 2025-05-27 16:04 | XMS_ITS | Encounter Summary ---
Author Organization [facility] Address [address] [place] [address] Care Team Providers Care Track Manager Name Role Phone Sai Blackburn MD Primary Care Provider [phone] Encounter Details Date Type Department Care Team (Latest Contact Info) Description 11/10/1999 Outpatient Historical [facility] Cardiology- [place] [address] [place] [phone] Kvng Moran MD NO ADDRESS ON FILE Sinoatrial node dysfunct (Primary Dx); Cardiac pacemaker in situ Social History Tobacco Use Types Packs/Day Years Used Date Smoking Tobacco: Never Assessed Sex and Gender Information Value Date Recorded Sex Assigned at Not on file Legal Sex Male 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
--- OUTSIDE RECORDS SUMMARY | 2025-05-27 16:04 | XMS_ITS | Encounter Summary ---
Author Organization [facility] Address [address] [place] [address] Care Team Providers Care Record Producer Name Role Phone Sai Blackburn MD Primary Care Provider [phone] Encounter Details Date Type Department Care Team (Latest Contact Info) Description 10/26/1999 Outpatient Historical [facility] Marques Rodriguez Jr., MD [address] [place] [phone] halfway (current) use of anticoagulants (Primary Dx) Social History Tobacco Use Types Packs/Day Years Used Date Smoking Tobacco: Never Assessed Sex and Gender Information Value Date Recorded Sex Assigned at Not on file 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
--- OUTSIDE RECORDS SUMMARY | 2025-05-27 16:04 | XMS_ITS | Encounter Summary ---
Author Organization [facility] Address [address] [place] [address] Care Team Providers Care Pyridine Operator Name Role Phone Sai Blackburn MD Primary Care Provider [phone] Encounter Details Date Type Department Care Team (Latest Contact Info) Description 11/30/2005 Outpatient Historical [facility] Cardiology Ancillary Services-[place] [address] [place] [address] Kvng Moran MD NO ADDRESS ON FILE Sinoatrial Node Dysfunct (Primary Dx); Cardiac Pacemaker in Situ Social History Tobacco Use Types Packs/Day Years Used Date Smoking Tobacco: Never Assessed Sex and Gender Information Value Date Recorded Sex Assigned at Not on file 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
--- OUTSIDE RECORDS SUMMARY | 2025-05-27 16:04 | XMS_ITS | Encounter Summary ---
Author Organization [facility] Address [address] [place] [address] Care Team Providers Care Assistant Curator Name Role Phone Sai Blackburn MD Primary Care Provider Encounter Details Date Type Department Care Team (Latest Contact Info) Description 01/04/2006 Outpatient Historical [facility] Cardiology Ancillary Services[place] [address] [place] [address] Kvng Moran MD NO ADDRESS ON FILE Sinoatrial Node Dysfunct (Primary Dx); Cardiac Pacemaker in Situ Social History Tobacco Use Types Packs/Day Years Used Date Smoking Tobacco: Never Assessed Sex and Gender Information Value Date Recorded Sex Assigned at Not on file 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
--- OUTSIDE RECORDS SUMMARY | 2025-05-27 16:04 | XMS_ITS | Encounter Summary ---
Author Organization [facility] Address [address] [place] [address] Care Team Providers Care Infantry Unit Leader Name Role Phone Sai Blackburn MD Primary Care Provider [phone] Encounter Details Date Type Department Care Team (Latest Contact Info) Description 05/17/2006 Outpatient Historical [facility] Cardiology Ancillary Services[place] [address] [place] [address] Kvng Moran MD NO ADDRESS ON FILE Sinoatrial Node Dysfunct (Primary Dx); Cardiac Pacemaker in Situ Social History Tobacco Use Types Packs/Day Years Used Date Smoking Tobacco: Never Assessed Sex and Gender Information Value Date Recorded Sex Assigned at Not on file 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
--- OUTSIDE RECORDS SUMMARY | 2025-05-27 16:04 | XMS_ITS | Encounter Summary ---
Author Organization [facility] Address [address] [place] [address] Care Team Providers Care Senior Administrative Services Officer Name Role Phone Sai Blackburn MD Primary Care Provider Encounter Details Date Type Department Care Team (Latest Contact Info) Description 05/15/2000 Outpatient Historical [facility] Cardiology- [place] [address] [place] [phone] Kvng Moran MD NO ADDRESS ON FILE Sinoatrial node dysfunct (Primary Dx); Cardiac pacemaker in situ Social History Tobacco Use Types Packs/Day Years Used Date Smoking Tobacco: Never Assessed Sex and Gender Information Value Date Recorded Sex Assigned at Not on file 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
--- OUTSIDE RECORDS SUMMARY | 2025-05-27 16:04 | XMS_ITS | Encounter Summary ---
Author Organization [facility] Address [address] [place] [address] Care Team Providers Care Maintenance Aide Name Role Phone Sai Blackburn MD Primary Care Provider Encounter Details Date Type Department Care Team (Latest Contact Info) Description 01/01/[address] 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
--- OUTSIDE RECORDS SUMMARY | 2025-05-27 16:04 | XMS_ITS | Encounter Summary ---
Author Organization [facility] Address [address] [place] [address] Care Team Providers Care Rubber Roller Grinder Operator Name Role Phone Sai Blackburn MD Primary Care Provider Encounter Details Date Type Department Care Team (Latest Contact Info) Description 04/12/2006 Outpatient Historical [facility] Cardiology Ancillary Services-[place] [address] [place] [address] Kvng Moran MD NO ADDRESS ON FILE Sinoatrial Node Dysfunct (Primary Dx); Cardiac Pacemaker in Situ Social History Tobacco Use Types Packs/Day Years Used Date Smoking Tobacco: Never Assessed Sex and Gender Information Value Date Recorded Sex Assigned at Not on file 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
--- OUTSIDE RECORDS SUMMARY | 2025-05-27 16:04 | XMS_ITS | Encounter Summary ---
Author Organization [facility] Address [address] [place] [address] Care Team Providers Care Edging Machine Feeder Name Role Phone Sai Blackburn MD Primary Care Provider Encounter Details Date Type Department Care Team (Latest Contact Info) Description 08/07/2006 Outpatient Historical [facility] Cardiology- [place] [address] [place] [phone] Magalys Sylvester, [place] [address] [place] [address] Unspecified Chest Pain (Primary Dx); Atrial Fibrillation (CMS/HCC) Social History Tobacco Use Types Packs/Day Years Used Date Smoking Tobacco: Never Assessed Sex and Gender Information Value Date Recorded Sex Assigned at Not on file 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
--- OUTSIDE RECORDS SUMMARY | 2025-05-27 16:04 | XMS_ITS | Encounter Summary ---
Author Organization [facility] Address [address] [place] [address] Care Team Providers Care Tightener Name Role Phone Sai Blackburn MD Primary Care Provider Encounter Details Date Type Department Care Team (Latest Contact Info) Description 07/24/2006 Outpatient Historical [facility] 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
--- OUTSIDE RECORDS SUMMARY | 2025-05-27 16:04 | XMS_ITS | Encounter Summary ---
Author Organization [facility] Address [address] [place] [address] Care Team Providers Care Photograph Mounter Name Role Phone Sai Blackburn MD Primary Care Provider Encounter Details Date Type Department Care Team (Latest Contact Info) Description 10/18/2006 Outpatient Historical [facility] Cardiology Ancillary Services-[place] [address] [place] [address] Kvng Moran MD NO ADDRESS ON FILE Sinoatrial Node Dysfunct (Primary Dx); Cardiac Pacemaker in Situ Social History Tobacco Use Types Packs/Day Years Used Date Smoking Tobacco: Never Assessed Sex and Gender Information Value Date Recorded Sex Assigned at Not on file 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
--- OUTSIDE RECORDS SUMMARY | 2025-05-27 16:04 | XMS_ITS | Encounter Summary ---
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 Gender Identity Not on file Sexual Orientation Not on file documented as of this encounter Plan of Treatment Not on file documented as of this encounter Procedures Procedure Name Priority Date/Time Associated Diagnosis Comments LIPID PANEL Routine 04/11/2007 6:03 AM CDT CARDIAC ENZYMES Routine 04/10/2007 9:45 PM CDT CARDIAC ENZYMES Routine 04/10/2007 5:40 PM CDT PTT Routine 04/10/2007 5:40 PM CDT STRESS TEST EXERCISE NUCLEAR MED Routine 04/10/2007 12:44 PM CDT NM MYOCARD PERF IMAG SPECT MULT Routine 04/10/2007 12:44 PM CDT XR CHEST PA OR AP 1 VW Routine 04/10/2007 12:44 PM CDT XR CHEST PA OR AP 1 VW Routine 04/10/2007 12:44 PM CDT CARDIAC ENZYMES Routine 04/10/2007 10:29 AM CDT CBC WITH DIFFERENTIAL Routine 04/10/2007 10:29 AM CDT PTT Routine 04/10/2007 10:29 AM CDT PROTIME-INR Routine 04/10/2007 10:29 AM CDT BASIC METABOLIC PANEL Routine 04/10/2007 10:29 AM CDT documented in this encounter Results * (ABNORMAL) LIPID PANEL (04/11/2007 6:03 AM CDT) CHOLESTEROL 148 75 - 200 mg/dL INTERFACE SYSTEM HDL 38(L) 40 - 60 mg/dL INTERFACE SYSTEM TRIGLYCERIDE 159 0 - 200 mg/dL INTERFACE SYSTEM CALCULATED LDL CHOLESTEROL 78 0 - 130 mg/dL INTERFACE SYSTEM CALCULATED TOTAL CHOLESTEROL TO HDL RATIO 3.89 3.43 - 4.97 INTERFACE SYSTEM 04/11/2007 6:03 AM CDT us Kvng Moran MD CHEMISTRY ORDERABLES Edited INTERFACE SYSTEM Refer to clinic/hospital department * CARDIAC ENZYMES (04/10/2007 9:45 PM CDT) TROPONIN I <0.1 0.0 - 1.3 ng/mL INTERFACE SYSTEM Comment: As of 07 the Troponin Reference Range has changed from 0.0-1.5 ng/ml to 0.0- 1.3 ng/ml due to a change in testing methodology. CKMB 1.1 0.0 - 5.0 ng/mL INTERFACE SYSTEM 04/10/2007 9:45 PM CDT us Nigel Roldan MD CHEMISTRY ORDERABLES Edited Performing Organization Address [facility] Phone Number INTERFACE SYSTEM Refer to clinic/hospital department * (ABNORMAL) PTT (04/10/2007 5:40 PM CDT) PTT 82.5(H) 21.6 - 35.6 Secs INTERFACE SYSTEM Comment: Therapeutic Range: Hi-level PE/DVT heparin protocol 80.1 -95.0 sec Lo-level PE/DVT heparin protocol 67.1 - 80.0 sec Cardiac Heparin Protocol 67.1 - 85.0 sec Neuro Heparin Protocol 67.1 - 80.0 sec As of 08/15/2006 note change in APTT Normal Range. 04/10/2007 5:40 PM CDT Kvng Moran MD HEMATOLOGY ORDERABLES Edite d Performing Organization Address [facility] Number INTERFACE SYSTEM Refer to clinic/hospital department * CARDIAC ENZYMES (04/10/2007 5:40 PM CDT) TROPONIN I <0.1 0.0 - 1.3 ng/mL INTERFACE SYSTEM Comment: As of 07 the Troponin Reference Range has changed from 0.0-1.5 ng/ml to 0.0- 1.3 ng/ml due to a change in testing methodology. CKMB 1.0 0.0 - 5.0 ng/mL INTERFACE SYSTEM 04/10/2007 5:40 PM CDT Nigel Roldan MD CHEMISTRY ORDERABLES Edited Performing Organization Address [facility] Phone Number INTERFACE SYSTEM Refer to clinic/hospital department * XR CHEST PA OR AP (04/10/2007 12:44 PM CDT) Anatomical Region Laterality Modality Chest Other 04/10/2007 12:4 4 PM CDT Narrative 04/10/2007 12:44 PM CDT Comparison 04/10/07 at 1023. Right atrial and ventricular pacer leads are present. No pneumothorax. The AP view better demonstratesmild scarring or atelectasis in the left mid and basilar regions. No pleural fluid. Mild thoracicdegenerative disc disease. - Dictated By: Jose Jackson M.D. Electronically Signed By: Jose Jackson M.D. Date Signed: 04/12/07 AMA Procedure Note 07/30/2009 Comparison 04/10/07 at 1023. Right atrial and ventricular pacer leads are present. No pneumothorax. TheAP view better demonstratesmild scarring or atelectasis in the left mid and basilarregions. No pleural fluid. Mild thoracicdegenerative disc disease. - Dictated By: Jose Jackson M.D. Electronically Signed By: Jose Jackson M.D. Date Signed: 04/12/07 AMA us Kvng Moran MD DIAGNOSTIC IMAGING ORDERABL ES Final Result * XR CHEST PA OR AP (04/10/2007 12:44 PM CDT) Anatomical Region Laterality Modality Chest Other 04/10/2007 12:4 4 PM CDT Narrative 04/10/2007 12:44 PM CDT Exam: Chest - PortableDate/Time of Exam: Apr 10, 2007 10:36:25 AMHistory: Chest pain. Findings: Dual-lead pacemaker is in place. Low lung volumes. Areas of linear scar versus atelectasisat the left lung base. No pleural effusion. Cardiomediastinal contours are AP magnified. Impression: No definite acute disease. Comparison with prior exams would be helpful if they becomeavailable. PA and lateral projections are recommended for more accurate assessment when feasibleif clinically warranted. - Dictated By: Luis Daniel Thompson M.D. Electronically Signed By: Luis Daniel Thompson M.D. Date Signed: 04/11/07 Procedure Note 07/30/2009 Exam: Chest - PortableDate/Time of Exam: Apr 10, 2007 10:36:25 AMHistory: Chest pain. Findings: Dual-lead pacemaker is in place. Low lung volumes. Areas of linear scarversus atelectasisat the left lung base. No pleural effusion. Cardiomediastinal contours are APmagnified. Impression: No definite acute disease. Comparison with prior exams would be helpful ifthey becomeavailable. PA and lateral projections are recommended for more accurate assessment whenfeasibleif clinically warranted. - Dictated By: Luis Daniel Thompson M.D. Electronically Signed By: Luis Daniel Thompson M.D. Date Signed: 04/11/07 us Nigel Roldan MD DIAGNOSTIC IMAGING ORDERABLE S Final Result * NM MYOCARD PERF IMAG SPECT MULT (04/10/2007 12:44 PM CDT) 04/10/2007 12:4 4 PM CDT Narrative INTERFACE SYSTEM - 04/10/2007 12:44 PM CDT Radionuclide Myocardial Perfusion SPECT Rest/Adenosine Stress Wall Motion and Ejection FractionEvaluation: Radiopharmaceutical: Tc-99m (technetium-99m) tetrofosminDose: 10.1 mCi (rest) / 29.3 mCi (stress)Reason for Consultation: Chest pain and dyspnea, CAD risk, cardiac pacemaker, LBBB. Rotating planar and tomographic slices demonstrate the left ventricular chamber to be modestlyenlarged without further dilation with stress, pulmonary accumulation of tracer, or importantmotion. Tomographic slices demonstrate physiologic tracer throughout the myocardium without importantreversible or fixed segmental defects. Gated tomographic imaging at rest following stress injection of tracer demonstrates physiologicthickening and excursion of all segments. Left ventricular end diastolic volume is 111 mL. Leftventricular ejection fraction is 60 %. Transient ischemic dilation index is normal at 0.98. Impression: 1. Normal myocardial perfusion imaging examination demonstrating no findings suggesting significantcoronary disease. 2. Normal regional and global left ventricular systolic function with viable myocardium throughout theleft ventricle. 3. The presence of left bundle-branch block precluded the independent electrocardiographic assessmentof ischemia. 4. Improvement in inferior wall perfusion may reflect anatomic attenuation. Improvement in globalsystolic function since the prior examination. - Dictated By: Sebastián Danielle M.D. Electronically Signed By: Sebastián Dainelle M.D. Date Signed: 04/11/07 Procedure Note 07/30/2009 Radionuclide Myocardial Perfusion SPECT Rest/Adenosine Stress Wall Motionand Ejection FractionEvaluation: Radiopharmaceutical: Tc-99m (technetium-99m) tetrofosminDose: 10.1 mCi (rest) / 29.3 mCi (stress)Reason for Consultation: Chest pain and dyspnea, CAD risk, cardiac pacemaker, LBBB. Rotating planar and tomographic slices demonstrate the left ventricularchamber to be modestlyenlarged without further dilation with stress, pulmonary accumulation of tracer, orimportantmotion. Tomographic slices demonstrate physiologic tracer throughout themyocardium without importantreversible or fixed segmental defects. Gated tomographic imaging at rest following stress injection of tracerdemonstrates physiologicthickening and excursion of all segments. Left ventricular end diastolic volume is111 mL. Leftventricular ejection fraction is 60 %. Transient ischemic dilation index is normalat 0.98. Impression: 1. Normal myocardial perfusion imaging examination demonstrating nofindings suggesting significantcoronary disease. 2. Normal regional and global left ventricular systolic function withviable myocardium throughout theleft ventricle. 3. The presence of left bundle-branch block precluded the independentelectrocardiographic assessmentof ischemia. 4. Improvement in inferior wall perfusion may reflect anatomicattenuation. Improvement in globalsystolic function since the prior examination. - Dictated By: Sebastián Danielle M.D. Electronically Signed By: Sebastián Danielle M.D. Date Signed: 04/11/07 us Kvng Moran MD NM ORDERABLES Final Resul t INTERFACE SYSTEM Refer to clinic/hospital department * STRESS TEST,EXERCISE, NUCLEAR MED (04/10/2007 12:44 PM CDT) 04/10/2007 12:4 4 PM CDT Narrative INTERFACE SYSTEM - 04/10/2007 12:44 PM CDT Cardiac Stress Test with Adenosine Provocation, Monitoring, and Interpretation: Reason for Consultation: Anterior chest pain and dyspnea, negative ACP, CAD risk, cardiacpacemaker. Dr. Danielle monitored the intervention and administered the pharmacologic agents. Pharmacologicintervention was ordered and performed due to pacemaker induced LBBBFollowing the intravenous infusion of 55.5 mg of adenosine over four minutes, the radiopharmaceuticalagent was injected at maximum effect at two minutes. Resting heart rate of 65 remained stableand blood pressure of 124/80 was measured at 136/66 at tracer injection. The patient experiencedtransient flushing and dyspnea. Electrocardiographic monitoring demonstrated left bundle-branchblock and no ventricular ectopy. The patient was asymptomatic and stable when discharged from [facility]. IMPRESSION: Satisfactory pharmacologic stress in preparation for myocardial perfusion imaging. The presence ofLBBB precluded the independent electrocardiographic assessment of ischemia. Myocardial perfusion imaging report to follow. - Dictated By: Sebastián Danielle M.D. Electronically Signed By: Sebastián Danielle M.D. Date Signed: 04/11/07 Procedure Note 07/30/2009 Cardiac Stress Test with Adenosine Provocation, Monitoring, andInterpretation: Reason for Consultation: Anterior chest pain and dyspnea, negative ACP, CAD risk, cardiacpacemaker. Dr. Danielle monitored the intervention and administered thepharmacologic agents. Pharmacologicintervention was ordered and performed due to pacemakerinduced LBBBFollowing the intravenous infusion of 55.5 mg of adenosine over four minutes, theradiopharmaceuticalagent was injected at maximum effect at two minutes. Resting heart rate of 65 remainedstableand blood pressure of 124/80 was measured at 136/66 at tracer injection. The patientexperiencedtransient flushing and dyspnea. Electrocardiographic monitoring demonstrated left bundle-branchblock andno ventricular ectopy. The patient was asymptomatic and stable when discharged from [facility]. IMPRESSION: Satisfactory pharmacologic stress in preparation for myocardial perfusionimaging. The presence ofLBBB precluded the independent electrocardiographic assessment of ischemia. Myocardial perfusion imaging report to follow. - Dictated By: Sebastián Danielle M.D. Electronically Signed By: Sebastián Danielle M.D. Date Signed: 04/11/07 us Kvng Moran MD NM ORDERABLES Final Resul t INTERFACE SYSTEM Refer to clinic/hospital department * (ABNORMAL) CBC WITH DIFFERENTIAL (04/10/2007 10:29 AM CDT) WBC 5.6 4.8 - 10.8 K/ul INTERFACE SYSTEM RBC 4.95 4.60 - 6.20 Mil/ul INTERFACE SYSTEM HEMOGLOBIN 16.3 14.0 - 18.0 g/dL INTERFACE SYSTEM HEMATOCRIT 48.1 41.0 - 53.0 % INTERFACE SYSTEM MCV 97.2 84.0 - 103.0 Fl INTERFACE SYSTEM MCH 32.9 27.0 - 34.0 pg INTERFACE SYSTEM MCHC 33.9 30.0 - 35.0 g/dL INTERFACE SYSTEM RDW 13.3 11.0 - 14.5 % INTERFACE SYSTEM PLATELETS 141 140 - 440 K/ul INTERFACE SYSTEM MPV 12.0 8.9 - 12.8 Fl INTERFACE SYSTEM NEUTROPHILS 62.7 42.2 - 75.2 % INTERFACE SYSTEM LYMPHOCYTES 22.5(L) 24.0 - 44.0 % INTERFACE SYSTEM MONOCYTES 10.5(H) 2.0 - 10.0 % INTERFACE SYSTEM EOSINOPHILS 3.9 0.0 - 7.0 % INTERFACE SYSTEM BASOPHILS 0.4 0.0 - 1.0 % INTERFACE SYSTEM NEUTROPHIL ABSOLUTE 3.5 2.0 - 8.0 K/ul INTERFACE SYSTEM LYMPHOCYTE ABSOLUTE 1.3 1.2 - 4.0 K/ul INTERFACE SYSTEM MONOCYTE ABSOLUTE 0.6 0.1 - 0.6 K/ul INTERFACE SYSTEM EOSINOPHIL ABSOLUTE 0.2 0.0 - 0.7 K/ul INTERFACE SYSTEM BASOPHILS ABSOLUTE 0.0 0.0 - 0.2 K/ul INTERFACE SYSTEM 04/10/2007 10:2 9 AM CDT us Nigel Roldan MD HEMATOLOGY ORDERABLES Edited Performing Organization Address City/[facility] de Phone Number INTERFACE SYSTEM Refer to clinic/hospital department * (ABNORMAL) PTT (04/10/2007 10:29 AM CDT) PTT 57.6(H) 21.6 - 35.6 Secs INTERFACE SYSTEM Comment: Therapeutic Range: Hi-level PE/DVT heparin protocol 80.1 -95.0 sec Lo-level PE/DVT heparin protocol 67.1 - 80.0 sec Cardiac Heparin Protocol 67.1 - 85.0 sec Neuro Heparin Protocol 67.1 - 80.0 sec As of 08/15/2006 note change in APTT Normal Range. 04/10/2007 10:2 9 AM CDT us Nigel Roldan MD HEMATOLOGY ORDERABLES Edited Performing Organization Address City/[facility]/ZIP Co de Phone Number INTERFACE SYSTEM Refer to clinic/hospital department * (ABNORMAL) PROTIME-INR (04/10/2007 10:29 AM CDT) PROTIME 31.8(H) 13.0 - 15.7 Secs INTERFACE SYSTEM Comment: As of 06 note change in normal range. INR 2.9 INTERFACE SYSTEM Comment: Expected Values for INR: DVT/PE Goal INR 2.5; range 2.0 - 3.0 Valve Replacement Tissue Goal INR 2.5; range 2.0 - 3.0 Mechanical Goal INR 3.0; range 2.5 - 3.5 POST-NH Goal INR 2.5; range 2.0 - 3.0 or Goal 3.0; range 2.5 - 3.5 Atrial Fibrillation Goal INR 2.5; range 2.0 - 3.0 Ischemic Stroke Goal INR 2.5; range 2.0 - 3.0 For additional information see Guidelines for Anticoagulation available from the pharmacy Meliton Armijo D. 04/10/2007 10:2 9 AM CDT us Nigel Roldan MD HEMATOLOGY ORDERABLES Edited Performing Organization Address [facility] Co de Phone Number INTERFACE SYSTEM Refer to clinic/hospital department * (ABNORMAL) BASIC METABOLIC PANEL (04/10/2007 10:29 AM CDT) GLUCOSE 98 70 - 110 mg/dL INTERFACE SYSTEM BUN 18 9 - 20 mg/dL INTERFACE SYSTEM CREATININE 1.4 0.7 - 1.5 mg/dL INTERFACE SYSTEM Comment:correction called to [place] DOLL 04/10/2007 8:24 PM SODIUM 146(H) 136 - 145 mEq/L INTERFACE SYSTEM POTASSIUM 4.6 3.5 - 5.0 mEq/L INTERFACE SYSTEM CHLORIDE 108 95 - 110 mEq/L INTERFACE SYSTEM CO2 28 22 - 32 mmol/l INTERFACE SYSTEM CALCIUM 9.2 8.4 - 10.5 mg/dL INTERFACE SYSTEM ANION GAP 15 9 - 20 mEq/L INTERFACE SYSTEM OSMOLALITY, CALCULATED 302(H) 275 - 295 mOsm/Kg INTERFACE SYSTEM 04/10/2007 10:2 9 AM CDT us Nigel Roldan MD CHEMISTRY ORDERABLES Edited INTERFACE SYSTEM Refer to clinic/hospital department * CARDIAC ENZYMES (04/10/2007 10:29 AM CDT) TROPONIN I <0.1 0.0 - 1.3 ng/mL INTERFACE SYSTEM Comment: As of 07 the Troponin Reference Range has changed from 0.0-1.5 ng/ml to 0.0- 1.3 ng/ml due to a change in testing methodology. CKMB 1.5 0.0 - 5.0 ng/mL INTERFACE SYSTEM 04/10/2007 10:2 9 AM CDT us Nigel Roldan MD CHEMISTRY ORDERABLES Edited Performing Organization Address City/[facility] Co de Phone Number INTERFACE SYSTEM Refer to clinic/hospital department documented in this encounter Visit Diagnoses Diagnosis Coronary atherosclerosis of [place] coronary artery- Primary documented in this encounter Care Teams Art Display Maker Relationship Specialty Start Date End Date Sai Blackburn MD [address] [place] [phone] PCP - General Internal Medicine 06/24/19 01/17/20 documented as of this encounter
--- OUTSIDE RECORDS SUMMARY | 2025-05-27 16:04 | XMS_ITS | Encounter Summary ---
Author Organization [facility] Address [address] [place] [address] Care Team Providers Care Special Education Math Teacher Name Role Phone Sai Blackburn MD Primary Care Provider Encounter Details Date Type Department Care Team (Latest Contact Info) Description 09/11/1999 Outpatient [facility] [phone] [place] [address] Vale Pires MD [address] [place] [address] Atrial fibrillation (CMS/HCC) (Primary Dx) Social History Tobacco Use Types Packs/Day Years Used Date Smoking Tobacco: Never Assessed Sex and Gender Information Value Date Recorded Sex Assigned at Not on file 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
--- OUTSIDE RECORDS SUMMARY | 2025-05-27 16:04 | XMS_ITS | Encounter Summary ---
Author Organization [facility] Address [address] [place] [address] Care Team Providers Care Alumni Relations Coordinator Name Role Phone Sai Blackburn MD Primary Care Provider [phone] Encounter Details Date Type Department Care Team (Latest Contact Info) Description 06/21/2006 Outpatient Historical [facility] 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
--- NOTE | 2025-05-27 16:11 | ECG_ITS ---
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 Measurements Intervals [place] Rate: 69 P: 176 WV: 166 QRS: -88 QRSD: 152 T: 113 QT: 468 QTc: 504 Interpretive Statements ELECTRONIC ATRIAL PACEMAKER ELECTRONIC VENTRICULAR PACEMAKER Compared to ECG 01/06/2018 04:52:41 No significant changes Electronically Signed On 05-29-2025 13:10:26 CDT by Jack Levy M.D. [email or web address]
--- NOTE | 2025-05-27 17:41 | XRR_ITS ---
PROCEDURE INFORMATION: Exam: XR Chest Exam date and time: 05/27/2025 5:56 PM Age: 79 years old Clinical indication: Fever; Additional info: Possible sepsis S/P pacemaker placement, fever, HX nicm TECHNIQUE: Imaging protocol: Radiologic exam of the chest. Views: 1 view. COMPARISON: CT chest [facility] [id number] 01/12/2021 9:03 AM FINDINGS: Tubes, catheters and devices: Left chest ICD versus pacemaker. Lungs: No definite acute infiltrate or effusion. Pleural spaces: Unremarkable. No pleural effusion. No pneumothorax. Heart/Mediastinum: Query mild cardiomegaly. Bones/joints: Degenerative changes of the bilateral AC joints. XR/XR chest 1V portable [id number] IMPRESSION: No definite acute infiltrate or effusion.
--- NOTE | 2025-05-27 17:45 | ECG_ITS ---
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 Measurements Intervals [place] Rate: 69 P: 102 SD: 169 QRS: 266 QRSD: 149 T: 164 QT: 409 QTc: 440 Interpretive Statements ELECTRONIC ATRIAL PACEMAKER ELECTRONIC VENTRICULAR PACEMAKER ABNORMAL RHYTHM ECG Compared to ECG 05/27/2025 16:11:31 No significant changes Electronically Signed On 05-29-2025 20:24:52 CDT by Kaylyn Velasquez M.D. [email or web address]
[2025-05-27 18:04] LABS: Base Excess VBG 4.1 mmol/L (-3.0-3.0); Blood Gas Operator Identificat AMH; Blood Gas Sample Site Not specified; Blood Gas Sample Type Venous; HCO3 VBG 29.2 mmol/L (24-28); PCO2 VBG 44.1 mmHg (41-51); PO2 VBG 30.6 mmHg (25-40); Venous Blood Gas Hematocrit 47.8 % (42-52); pH VBG 7.43 (7.32-7.42)
[2025-05-27 18:06] VITALS: BP 144/79; PULSE 70; RESP 20; O2SAT 93
[2025-05-27 18:18] LABS: Hematocrit 45.3 % (37-53); Hemoglobin 14.80 g/dL (11.27-16.99); Mean Corpuscular HGB Conc 32.7 g/dL (30-55); Mean Corpuscular Hemoglobin 32.3 pg (27-33); Mean Corpuscular Volume 98.9 fl (82-101); Nucleated Red Blood Cells % 0 %; Platelet Count 142 10^3/cmm (157-399); Red Blood Count 4.58 10^6/uL (3.85-5.65); White Blood Count 11.50 10^3/uL (3.29-11.43)
[2025-05-27 18:19] LABS: Glucose Urine UA 2+ (Normal); Nitrate Urine Negative (Negative); Specific Gravity, Urine 1.011 (1.005-1.030)
[2025-05-27 18:23] LABS: INR 1.21 (0.8-1.2); Prothrombin Time 16.10 SECONDS (12.1-14.9)
[2025-05-27 18:23] LABS: Add Urine Microscopic? YES
[2025-05-27 18:24] LABS: Partial Thromboplastin Time 32.9 SECONDS (23.9-36.7)
[2025-05-27 18:31] LABS: Alanine Aminotransferase 15 U/L (0-41); Albumin Level 4.1 g/dL (3.5-5.2); Alkaline Phosphatase 95 U/L (40-130); Anion Gap 15.4 (5-19); Aspartate Amino Transferase 16 U/L (0-40); Blood Urea Nitrogen 17 mg/dL (8-23); Calcium 9.9 mg/dL (8.5-10.5); Carbon Dioxide 27 mmol/L (22-29); Chloride 101 mmol/L (98-107); Creatinine Clr Calc Pharmacy 54.5585; Globulin 3.0 g/dL (1.3-4.6); Glucose 94 mg/dL (65-115); Magnesium 2.4 mg/dL (1.7-2.3); Osmolality Calculated 289 mOsm/kg (285-295); Potassium 4.4 mmol/L (3.5-5.1); Sodium 139 mmol/L (136-145); Total Protein 7.1 g/dL (6.6-8.7)
[2025-05-27 18:36] LABS: Procalcitonin 0.06 ng/mL (0-0.5)
[2025-05-27 18:55] LABS: Lactic Sepsis W/Reflex 1.1 mmol/L (0.5-2.2)
--- NOTE | 2025-05-27 19:07 | W.ED.FEVER ---
HPI - Fever General: Chief Complaint: Fever Stated Complaint: fever / chills Time Seen by Provider: 05/27/25 17:37 History of Present Illness: 79-year-old male past medical history significant for nonischemic cardiomyopathy status post pacemaker x 4, most recently revised a month ago, postoperative course in mid April complicated by an episode of pulmonary embolism and pneumonia for which he was treated for antibiotics with resolution of symptoms, also has a history of atrial fibrillation, bronchitis, CHF, GERD, obstructive lung disease, presenting to the emergency department with fatigue since this morning, slept more than usual last night, generalized weakness, fever of 100.8 approximately 15 minutes after taking Tylenol, otherwise patient denies any headache, nausea or vomiting, denies chest pain or shortness of breath, denies diarrhea, denies abdominal pain, denies changes in his urine output reports urinary frequency at baseline due to diuretic use but no changes recently, denies back or flank pain, denies rashes to the skin, no sick contacts, no nasal congestion or cough Related Data Home Medications ?Medication ?Instructions ?Recorded ?Confirmed apixaban 5 mg tablet (Eliquis) 5 mg PO BID 09/22/19 02/24/25 furosemide 40 mg tablet 40 mg PO QAM 09/22/19 02/24/25 methocarbamol 750 mg tablet 750 mg PO TID PRN 09/22/19 02/24/25 simvastatin 40 mg tablet 40 mg PO .HS 09/22/19 02/24/25 fluticasone propionate 50 2 spray intranasal DAILY 10/11/20 02/24/25 mcg/actuation nasal spray,suspension (Allergy Relief (fluticasone)) allopurinol 100 mg tablet 100 mg PO DAILY 09/17/22 02/24/25 calcium citrate 200 mg PO DAILY 10/26/22 02/24/25 magnesium oxide 250 mg PO DAILY 10/26/22 02/24/25 omega-3 fatty acids 1,000 mg 1,000 mg PO DAILY 10/26/22 02/24/25 capsule potassium gluconate 600 mg (99 mg) 600 mg PO DAILY 10/26/22 02/24/25 tablet zinc gluconate 50 mg tablet 50 mg PO DAILY 10/26/22 02/24/25 niacin 500 mg tablet 500 mg PO DAILY 03/15/23 02/24/25 sacubitril 49 mg-valsartan 51 mg 1 tab PO BID 03/15/23 02/24/25 tablet (Entresto) Previous Rx's ?Medication ?Instructions ?Recorded albuterol sulfate 90 mcg/actuation 2 puff inhalation QID PRN 02/01/22 aerosol inhaler (ProAir HFA) shortness of breath or wheezing #8.5 grams azelastine 137 mcg-fluticasone 50 1 spray intranasal BID #23 grams 02/01/22 mcg/spray nasal spray (Dymista) levocetirizine 5 mg tablet (Xyzal) 5 mg PO DAILY 90 days #90 tabs 04/26/23 tramadol 50 mg tablet 50 mg PO Q8H PRN pain #20 tabs 05/27/23 metoprolol succinate 50 mg 50 mg PO DAILY #90 tabs 07/22/24 tablet,extended release 24 hr orthopedic shoes with custom #1 ea 11/25/24 accommodative orthotics cefpodoxime 200 mg tablet 200 mg PO Q12H 7 days #14 tabs 05/27/25 Allergies Allergy/AdvReac Type Severity Reaction Status Date / Time hydrocodone AdvReac ADR-Insomni Verified 05/27/25 16:07 a [facility] PFSH: Medical History Enrolled in chronic care management Ischemic cardiomyopathy Pacemaker PTSD (post-traumatic stress disorder) Hx pulmonary embolism ANJELICA (obstructive sleep apnea) Gout Hyperlipidemia Nonischemic cardiomyopathy CHF (congestive heart failure) Asthma Atrial fibrillation Essential hypertension Surgical History Status cardiac pacemaker S/P knee replacement S/P cholecystectomy History of cardiac radiofrequency ablation Family History Father Hypertension Congestive heart failure (CHF) Stroke Mother Hypertension Stroke Social History Smoking and tobacco/nicotine status: former use of tobacco/nicotine Quit status (tobacco/nicotine): has quit using Year quit tobacco: 1990 [id number] Second hand smoke exposure: Yes Alcohol intake: current Alcohol intake frequency: 0-2 Drinks per Day Substance/Drug Use: never Lives independently: Yes Household members: spouse Housing: House Marital status: service: Yes Current occupational status: retired Pets and animals: Yes Do you think of yourself as: Straight/Heterosexual Current gender identity: Male Physical Exam Narrative: EXAM NARRATIVE: Gen: A&Ox4, no acute distress, nontoxic appearing HEENT: Normocephalic, atraumatic, no scleral icterus, external ears normal, moist mucous membranes Neck: Supple, full range of motion, no observable masses Lungs: No Respiratory distress, Lungs clear to auscultation bilaterally no rales, rhonchi, wheezing CV: Regular rate and rhythm, no murmur, no pitting edema to lower extremities bilaterally, pacemaker to left chest, overlying skin not warm or erythematous and no induration or fluctuance Abdomen: Soft, nondistended, nontender to palpation MSK: No joint swelling, FROM all 4 extremities Skin: No rashes, petechiae, lesions. Normal color per patient. Neuro: Alert and oriented, no slurred speech, sensation and strength grossly intact all 4 extremities Psych: Appropriate for situation. Course Reevaluation(s): Reevaluation #1: Patient reassessed at this time, his vital signs are stable, he appears extremely well-appearing, he currently does not have any significant symptoms. His workup showed a borderline leukocytosis but was otherwise reassuring with a stable creatinine, and no obvious signs of infection to the urine lungs or secondary evidence of significant inflammation within the body, lactate was normal, I did discuss with them that it would be reasonable to monitor symptoms in the outpatient setting for progression and to consider repeat visit for initiation of antibiotics if his symptoms progress as this could be a viral syndrome or mild fever of unclear etiology. Given that the weekend is approaching, the patient has concerns about having to come back over the weekend, he prefers to start empiric antibiotics which given his fever and borderline leukocytosis is not medically unreasonable in my judgment, will give a dose of IV Rocephin and start the patient on cefpodoxime for empiric coverage of nonspecific fever, I did discuss the option of admitting to the hospital for monitoring but patient is not interested in this and I do not feel that is indicated in this situation at this time. He does understand the importance of returning to the ER where his symptoms to worsen. Stable for discharge Time: 20:46 Vital Signs: Vital signs: Vital Signs Temperature 99.3 F 05/27/25 16:01 Pulse Rate 70 05/27/25 20:36 Respiratory Rate 18 05/27/25 20:36 Blood Pressure 150/75 05/27/25 20:36 Pulse Oximetry 93 05/27/25 20:36 Oxygen Delivery Me thod Room Air 05/27/25 20:36 MDM - Fever Medical Decision Making 79-year-old male with past medical history significant for nonischemic cardiomyopathy/CHF, pacemaker revised for the fourth time in early April followed by admission for pulmonary embolism and pneumonia, lung disease, UTI, sinusitis in the past, presenting with nonspecific fatigue and low-grade fever 100.8 at home x 1 day without identifying or localizing source of infection by history or physical exam. Patient clinically appears well, plan for infectious workup, hold fluid given heart failure status and clinically not septic at this time, reassess for disposition. Lab Data Labs showing borderline leukocytosis, minimal thrombocytopenia, creatinine 1.3 at baseline, otherwise electrolytes normal, normal lactate, no acidosis, urinalysis negative, COVID flu RSV negative 05/27/25 17:55 05/27/25 17:55 Radiology Impressions Chest X-Ray 05/27/25 17:41 IMPRESSION: No definite acute infiltrate or effusion. Laboratory Results WBC 11.50 10^3/uL (3.29-11.43) H 05/27/25 17:55 RBC 4.58 10^6/uL (3.85-5.65) 05/27/25 17:55 Hgb 14.80 g/dL (11.27-16.99) 05/27/25 17:55 Hct 45.3 % (37-53) 05/27/25 17:55 MCV 98.9 fl (82-101) 05/27/25 17:55 MCH 32.3 pg (27-33) 05/27/25 17:55 MCHC 32.7 g/dL (30-55) 05/27/25 17:55 RDW 14.4 % (12.1-15.1) 05/27/25 17:55 Plt Count 142 10^3/cmm (157-399) L 05/27/25 17:55 MPV 10.7 fL (7.4-10.4) H 05/27/25 17:55 Neut % (Auto) 80.2 % 05/27/25 17:55 Lymph % (Auto) 10.0 % 05/27/25 17:55 Ed[place] % (Auto) 8.4 % 05/27/25 17:55 Eos % (Auto) 0.7 % 05/27/25 17:55 Baso % (Auto) 0.4 % 05/27/25 17:55 Neut # (Auto) 9.22 10^3/uL (1.8-7.7) H 05/27/25 17:55 Lymph # (Auto) 1.2 10^3/uL (0.8-4.8) 05/27/25 17:55 Edmonson # (Auto) 1.0 10^3/uL (0.2-0.9) H 05/27/25 17:55 Eos # (Auto) 0.1 10^3/uL (0.0-0.8) 05/27/25 17:55 Baso # (Auto) 0.1 10^3/uL (0.0-0.1) 05/27/25 17:55 Nucleated RBC % (auto) 0 % 05/27/25 17:55 Nucleated RBCs # 0.0 /100WBC 05/27/25 17:55 PT 16.10 SECONDS (12.1-14.9) H 05/27/25 17:55 INR 1.21 (0.8-1.2) H 05/27/25 17:55 APTT 32.9 SECONDS (23.9-36.7) 05/27/25 17:55 Specimen Type Venous 05/27/25 17:55 Sample Site Not specified 05/27/25 17:55 Misha Test N/a 05/27/25 17:55 VBG pH 7.43 (7.32-7.42) H 05/27/25 17:55 VBG pCO2 44.1 mmHg (41-51) 05/27/25 17:55 VBG pO2 30.6 mmHg (25-40) 05/27/25 17:55 VBG HCO3 29.2 mmol/L (24-28) H 05/27/25 17:55 VBG Base Excess 4.1 mmol/L (-3.0-3.0) H 05/27/25 17:55 VBG Hematocrit 47.8 % (42-52) 05/27/25 17:55 Platinumsmith ID Amh 05/27/25 17:55 Sodium 139 mmol/L (136-145) 05/27/25 17:55 Potassium 4.4 mmol/L (3.5-5.1) 05/27/25 17:55 Chloride 101 mmol/L (98-107) 05/27/25 17:55 Carbon Dioxide 27 mmol/L (22-29) 05/27/25 17:55 Anion Gap 15.4 (5-19) 05/27/25 17:55 BUN 17 mg/dL (8-23) 05/27/25 17:55 Creatinine 1.3 mg/dL (0.7-1.2) H 05/27/25 17:55 GFR Calculation Not Reportable 05/27/25 17:55 Glucose 94 mg/dL (65-115) 05/27/25 17:55 Calculated Osmolality 289 mOsm/kg (285-295) 05/27/25 17:55 Lactic Acid 1.1 mmol/L (0.5-2.2) 05/27/25 17:55 Calcium 9.9 mg/dL (8.5-10.5) 05/27/25 17:55 Magnesium 2.4 mg/dL (1.7-2.3) H 05/27/25 17:55 Total Bilirubin 0.9 mg/dL (0.15-1.2) 05/27/25 17:55 AST 16 U/L (0-40) 05/27/25 17:55 ALT 15 U/L (0-41) 05/27/25 17:55 Alkaline Phosphatase 95 U/L (40-130) 05/27/25 17:55 Total Protein 7.1 g/dL (6.6-8.7) 05/27/25 17:55 Albumin 4.1 g/dL (3.5-5.2) 05/27/25 17:55 Globulin 3.0 g/dL (1.3-4.6) 05/27/25 17:55 Procalcitonin 0.06 ng/mL (0-0.5) 05/27/25 17:55 Urine Color Yellow (Yellow) 05/27/25 18:09 Urine Appearance Clear (CLEAR) 05/27/25 18:09 Urine pH 6.0 (5-7) 05/27/25 18:09 Ur Specific [place] 1.011 (1.005-1.030) 05/27/25 18:09 Urine Protein Negative (Negative) 05/27/25 18:09 Urine Glucose (UA) 2+ (Normal) H 05/27/25 18:09 Urine Ketones Negative (Negative) 05/27/25 18:09 Urine Blood Negative (Negative) 05/27/25 18:09 Urine Nitrate Negative (Negative) 05/27/25 18:09 Urine Bilirubin Negative (Negative) 05/27/25 18:09 Urine Urobilinogen 0.2 mg/dL (Negative) 05/27/25 18:09 Ur Leukocyte Esterase Trace (Negative) A 05/27/25 18:09 Urine RBC 0-2 /hpf (0-2) 05/27/25 18:09 Urine WBC 6-10 /hpf (0-5) 05/27/25 18:09 Ur Squamous Epith Cells 0-5 /hpf (0-5) 05/27/25 18:09 Amorphous Sediment Not Reportable 05/27/25 18:09 Urine Bacteria None seen /hpf (NONE) 05/27/25 18:09 Hyaline Casts 0.40 /lpf 05/27/25 18:09 Influenza A (PCR) Negative (Negative) 05/27/25 18:01 Influenza Type B (PCR) Negative (Negative) 05/27/25 18:01 RSV (PCR) Negative (Negative) 05/27/25 18:01 SARS-CoV-2 (PCR) Negative (Negative) 05/27/25 18:01 All radiology interpretation(s) finalized by discharge ED provider radiology interpretation(s): Chest x-ray negative for significant acute bacterial consolidation Discharge Plan Discharge Patient Disposition: Home Clinical Impression: Fever, Leukocytosis Condition: Stable Prescriptions: New cefpodoxime 200 mg tablet 200 mg PO Q12H 7 Days Qty: 14 0RF Rx Instructions: must administer with a meal/food No Action Eliquis 5 mg tablet 5 mg PO BID furosemide 40 mg tablet 40 mg PO QAM simvastatin 40 mg tablet 40 mg PO .HS methocarbamol 750 mg tablet 750 mg PO TID PRN allopurinol 100 mg tablet 100 mg PO DAILY fluticasone propionate [Allergy Relief (fluticasone)] 50 mcg/actuation spray,suspension 2 spray intranasal DAILY Rx Instructions: administer into each nostril albuterol sulfate [ProAir HFA] 90 mcg/actuation HFA aerosol inhaler 2 puff inhalation QID PRN (Reason: shortness of breath or wheezing) Qty: 8.5 11RF azelastine-fluticasone [Dymista] 137-50 mcg/spray spray,non-aerosol 1 spray intranasal BID Qty: 23 3RF Rx Instructions: administer into each nostril omega-3 fatty acids 1,000 mg capsule 1,000 mg PO DAILY zinc gluconate 50 mg tablet 50 mg PO DAILY magnesium oxide 250 mg magnesium tablet 250 mg PO DAILY calcium citrate 200 mg (950 mg) tablet 200 mg PO DAILY potassium gluconate 600 mg (99 mg) tablet 600 mg PO DAILY niacin 500 mg tablet 500 mg PO DAILY Entresto 49-51 mg tablet 1 tab PO BID levocetirizine [Xyzal] 5 mg tablet 5 mg PO DAILY 90 Days Qty: 90 0RF metoprolol succinate 50 mg tablet extended release 24 hr 50 mg PO DAILY Qty: 90 3RF (DME) orthopedic shoes with custom accommodative orthotics See Rx Instructions .Route .MEDSUPPLY Qty: 1 0RF Rx Instructions: As directed tramadol 50 mg tablet 50 mg PO Q8H PRN (Reason: pain) Qty: 20 0RF Discharge Orders: Discharge ED (Routine); Ordered 05/27/25 Ordered By: Esvin Mesa Referrals: Shashank Almazan DO [Primary Care Provider, Family Practice] Patient Instructions: Fever in Adults (ED), Patient Portal & [facility] Instructions Activity Restrictions/Additional Instructions: You were seen in the emergency department for a fever with associated fatigue, your workup did not show any obvious evidence of a significant source of infection but your white blood cell count was borderline elevated which could indicate an early infection. You have elected to start empiric antibiotics, it is important for you to return to the emergency department if your symptoms were to worsen, if your symptoms do improve I recommend you follow-up with your PCP for further evaluation when able Print Language: Bangladeshi Coding Level of Care Code ED Horologist for Carol Patel
[2025-05-27 19:33] LABS: Respiratory Syncytial Virus Ce NEGATIVE (Negative); SARS-CoV-2 PCR NEGATIVE (Negative)
[2025-05-27 20:36] VITALS: BP 150/75; PULSE 70; RESP 18; O2SAT 93
[2025-05-27] MEDS: cefTRIAXone 1,000 mg SDV 1000 MG IVP (21:02)
[2025-05-27 21:15] VITALS: BP 147/74; PULSE 70; RESP 16; O2SAT 93
== END 2025-05-27 21:17 | disposition home or self-care (01) ==
PROVIDERS: Emergency Provider Student in an Organized Health Care Education/Training Program; PCP Family Medicine
DX: R50.9 Fever, unspecified (principal); D72.829 Elevated white blood cell count, unspecified; Z79.01 Long term (current) use of anticoagulants; Z11.52 Encounter for screening for COVID-19; Z87.891 Personal history of nicotine dependence; Z95.0 Presence of cardiac pacemaker; E78.5 Hyperlipidemia, unspecified; I11.0 Hypertensive heart disease with heart failure; I50.9 Heart failure, unspecified
CPT/HCPCS: 36415; 71045; 80053; 81001; 82803; 83605; 83735; 84145; 85025; 85610; 85730; 87040; 87637; 93005; 99285; J0696; J7050